=== PATIENT | female | born 1955 | race Two or more races ===

== ENCOUNTER 2017-01-15 09:11 | Emergency (ER) | payer BC, OTHER ==
[~2017-01-15] VITALS: Ht 154.9 cm; Wt 86.6 kg
[2017-01-15 09:53] LABS: Basophils # (auto) 0 uL; Basophils % (auto) 0.4 % (0.0-2.0); Eosinophils # (auto) 0.1 uL; Eosinophils % (auto) 1.3 % (0.0-7.0); Hematocrit 40.5 % (36.0-46.0); Hemoglobin 13.4 g/dL (12.2-16.2); Lymphocytes # (auto) 1.7 uL; Lymphocytes % (auto) 25.1 % (10.0-50.0); Mean Corpuscular Hemoglobin 27.6 pg (28.0-32.0); Mean Corpuscular Volume 83.7 fL (80.0-100.0); Mean Platelet Volume 11.1 fL (7.4-10.4); Monocytes # (auto) 0.3 uL; Monocytes % (auto) 4.9 % (0.0-12.0); Neutrophils # (auto) 4.7 uL; Neutrophils % (auto) 68.3 % (37.0-80.0); Platelet Count (auto) 224 10^3/uL (140-450); Red Cell Distribution Width 16.7 % (11.6-16.0); White Blood Cell 6.8 10^3/uL (4.4-10.8)
[2017-01-15 10:19] LABS: Albumin 3.7 g/dL (3.4-5.0); Alkaline Phosphatase 118 U/L (45-117); Anion Gap 7 (5-15); Aspartate Aminotransferase 21 U/L (15-37); Bilirubin, Total 0.5 mg/dL (0.2-1.0); Blood Urea Nitrogen 13 mg/dL (7-18); Calcium 8.8 mg/dL (8.5-10.1); Carbon Dioxide 27 mmol/L (21-32); Chloride 108 mmol/L (98-107); GFR African American 93 mL/min; GFR Non-African American 77 mL/min; Glucose 82 mg/dL (74-106); Magnesium 2.7 mg/dL (1.6-2.6); Potassium 4.1 mmol/L (3.5-5.1); Sodium 142 mmol/L (136-145); Total Protein 7.6 g/dL (6.4-8.2)
[2017-01-15 10:29] VITALS: BP 170/74
== END 2017-01-15 10:33 | disposition home or self-care (01) ==
LOC: ER 09:11
DX: K21.9 Gastro-esophageal reflux disease without esophagitis (principal); E11.9 Type 2 diabetes mellitus without complications; I10 Essential (primary) hypertension
CPT/HCPCS: 36415; 71020; 80053; 83735; 84484; 85025; 93005

== ENCOUNTER 2017-02-07 01:21 | Emergency (ER) | payer BC ==
[~2017-02-07] VITALS: Ht 154.9 cm; Wt 79.4 kg
[2017-02-07] MEDS ORDERED: cloNIDine HCL 0.1 MG TAB ONE (01:54)
[2017-02-07] MEDS ORDERED: diphenhdrAMINE HCL 25 MG CAP PO ONE ×2 (01:55→02:15)
[2017-02-07] MEDS ORDERED: cloNIDine HCL 0.1 MG TAB PO ONE (02:15)
[2017-02-07 03:08] VITALS: BP 108/76
[2017-02-07] MEDS ORDERED: TETANUS-DIPTH-ACEL PERTUSSIS 0.5ML SYRG IM ONE (03:15)
== END 2017-02-07 03:04 | disposition home or self-care (01) ==
LOC: ER 01:21
DX: T14.8 Other injury of unspecified body region (principal); J45.909 Unspecified asthma, uncomplicated; E11.9 Type 2 diabetes mellitus without complications; I10 Essential (primary) hypertension; Z23 Encounter for immunization; W57.XXXA Bitten or stung by nonvenomous insect and other nonvenomous arthropods, initial encounter; Y93.89 Activity, other specified; Y99.8 Other external cause status; Y92.89 Other specified places as the place of occurrence of the external cause
CPT/HCPCS: 90471; 90715

== ENCOUNTER 2022-01-06 06:10 | Inpatient (IN) | payer BC ==
[2022-01-06] VITALS (13 sets, daily range): BP systolic 93–129; BP diastolic 62–103
[~2022-01-06] VITALS: Ht 154.9 cm; Wt 93.4 kg
[2022-01-06] MEDS ORDERED: CELECOXIB 100 MG CAP ONE (06:52)
[2022-01-06] MEDS ORDERED: ACETAMINOPHEN IV 100 ML IV ONE (06:53)
[2022-01-06] MEDS ORDERED: ceFAZolin 1GM/50ML 100 ML IV ONE (06:53)
[2022-01-06] MEDS ORDERED: SUCCINYLCHOLINE CHLORIDE 20 MG/ML 10ML VIAL IV ONE (07:04)
[2022-01-06] MEDS ORDERED: TETRACAINE 1% INJ 2 ML VIAL IJ ONE (07:04)
[2022-01-06] MEDS ORDERED: ROCURONIUM 10MG/ML 10ML VIAL IV ONE (07:04)
[2022-01-06] MEDS ORDERED: PREGABALIN CAPSULE 75 MG CAP ONE (07:07)
[2022-01-06] MEDS ORDERED: MORPHINE SULF PF 5 MG/10 ML VIAL ONE ×2 (07:09→07:15)
[2022-01-06] MEDS ORDERED: fentaNYL CITRATE 100 MCG/2 ML VL ONE (07:09)
[2022-01-06] MEDS ORDERED: SODIUM CHLORIDE LOCK 10 ML ONE (07:10)
[2022-01-06] MEDS ORDERED: PROPOFOL 10 MG/ML 20 ML IV ONE (07:10)
[2022-01-06] MEDS ORDERED: ONDANSETRON HCL 4 MG/2 ML VIAL ONE (07:10)
[2022-01-06] MEDS ORDERED: EPINEPHrine HCL 1 MG/1 ML AMP ONE (07:10)
[2022-01-06] MEDS ORDERED: HYDROCORTISONE SOD SUCC 100 MG/2ML INJ VIAL ONE (07:10)
[2022-01-06] MEDS ORDERED: BUPIVACAINE/DEXTROSE MPF 0.75% 2 ML AMP IT ONE (07:10)
[2022-01-06] MEDS ORDERED: MIDAZOLAM HCL 2MG/2ML 2ml VIAL (1mg/ml) ONE (07:10)
[2022-01-06] MEDS ORDERED: BUPIVACAINE W/ EPINEPH 0.25% INJ 50ML MDV ONE (07:14)
[2022-01-06] MEDS ORDERED: VANCOMYCIN HCL 1000 MG VL ONE (07:14)
[2022-01-06] MEDS ORDERED: TRANEXAMIC ACID 20 ML ONE (07:14)
[2022-01-06] MEDS ORDERED: KETOROLAC TROMETH 30 MG/ML 1ML VIAL ONE (07:16)
[2022-01-06] MEDS ORDERED: CELECOXIB 100 MG CAP PO ONE (07:45)
[2022-01-06] MEDS ORDERED: ACETAMINOPHEN IV 1000 MG/100ML (10MG/ML) IV ONE (07:45)
[2022-01-06] MEDS ORDERED: PREGABALIN CAPSULE 75 MG CAP PO ONE (07:45)
[2022-01-06] MEDS ORDERED: MORPHINE SULFATE 4 MG/ML SYR/VIAL IV PRN (08:15)
[2022-01-06] MEDS ORDERED: METOCLOPRAMIDE HCL 5MG/ml INJ 2ml VIAL IV PRN (08:15)
[2022-01-06] MEDS ORDERED: NALOXONE HCL 0.4 MG/ML VIAL IV PRN (08:15)
[2022-01-06] MEDS ORDERED: diphenhdrAMINE HCL 50 MG/1 ML VL IV PRN (08:15)
[2022-01-06] MEDS ORDERED: HYDROmorphone HCL 2 MG/ML VL/or syr IV PRN ×2 (08:15→09:00)
[2022-01-06] MEDS ORDERED: ACETAMINOPHEN 325 MG TAB PO PRN (09:00)
[2022-01-06] MEDS ORDERED: ONDANSETRON HCL 4 MG/2 ML VIAL IV PRN (09:00)
[2022-01-06] MEDS ORDERED: NITROGLYCERIN 0.4 MG SL TAB SL PRN (09:30)
[2022-01-06] MEDS ORDERED: MORPHINE SULFATE INJ 2 MG/ml SYRG IV PRN (09:30)
[2022-01-06] MEDS: LACTATED RINGER'S 1,000 ML IV SCH ×2 (12:35→22:13)
[2022-01-06] MEDS: ceFAZolin 1GM/50ML 50 ML IV SCH ×2 (13:30→19:23)
[2022-01-06] MEDS: SODIUM CHLOR 0.9% PF (SALINE LOCK) 10ML VIAL/SYR IV SCH ×2 (14:00→22:13)
[2022-01-06] MEDS: PANTOPRAZOLE 40 MG TAB PO SCH (15:00)
[2022-01-06] MEDS: ENOXAPARIN SOD 40 MG/0.4 ML SYRINGE SC SCH (18:34)
[2022-01-06] MEDS: DOCUSATE SOD 100 MG CAP PO SCH (22:14)
[2022-01-07] VITALS (10 sets, daily range): BP systolic 95–125; BP diastolic 57–73
[2022-01-07] MEDS: ceFAZolin 1GM/50ML 50 ML IV SCH (02:01)
[2022-01-07 06:14] LABS: Hematocrit 30.5 % (36.0-46.0); Hemoglobin 10.5 g/dL (12.2-16.2)
[2022-01-07] MEDS ORDERED: ceFAZolin 1GM/50ML 50 ML IV SCH (06:15)
[2022-01-07] MEDS: SODIUM CHLOR 0.9% PF (SALINE LOCK) 10ML VIAL/SYR IV SCH ×3 (06:18→22:25)
[2022-01-07 06:27] LABS: Albumin 2.8 g/dL (3.4-5.0); Calcium 7.9 mg/dL (8.5-10.1); Potassium 4.5 mmol/L (3.5-5.1)
[2022-01-07 06:30] LABS: BUN/Creatinine Ratio 14.9; Bilirubin, Total 0.4 mg/dL (0.2-1.0); Total Protein 6.1 g/dL (6.4-8.2)
[2022-01-07] MEDS: LACTATED RINGER'S 1,000 ML IV SCH (08:02)
[2022-01-07] MEDS: DOCUSATE SOD 100 MG CAP PO SCH ×2 (10:39→22:25)
[2022-01-07] MEDS: PANTOPRAZOLE 40 MG TAB PO SCH (10:39)
[2022-01-07] MEDS: ENOXAPARIN SOD 40 MG/0.4 ML SYRINGE SC SCH (10:39)
[2022-01-07] MEDS ORDERED: SODIUM CHLORIDE 0.9% 1,000 ML IV ONE (11:00)
[2022-01-07] MEDS: HYDROmorphone HCL 2 MG/ML VL/or syr IV PRN ×2 (16:54→21:30)
[2022-01-07 19:34] LABS: BUN/Creatinine Ratio 18.3; Potassium 4.2 mmol/L (3.5-5.1)
[2022-01-07] MEDS: OXYCODONE W/ ACETAMINOPHEN 5/325MG TABLET PO PRN (22:26)
[2022-01-08] MEDS ORDERED: SODIUM CHLORIDE 0.9% 500 ML IV ONE (01:15)
[2022-01-08] MEDS: SODIUM CHLOR 0.9% PF (SALINE LOCK) 10ML VIAL/SYR IV SCH ×3 (05:36→21:32)
[2022-01-08] MEDS: OXYCODONE W/ ACETAMINOPHEN 5/325MG TABLET PO PRN (05:38)
[2022-01-08] MEDS ORDERED: OXYCODONE W/ ACETAMINOPHEN 5/325MG TABLET PO PRN (05:45)
[2022-01-08 06:26] LABS: Basophils # (auto) 0 10 ^3/uL (0-0.2); Basophils % (auto) 0.3 % (0.0-2.0); Eosinophils # (auto) 0.1 10 ^3/uL (0-0.8); Eosinophils % (auto) 0.9 % (0.0-7.0); Hematocrit 31.9 % (36.0-46.0); Hemoglobin 10.9 g/dL (12.2-16.2); Lymphocytes # (auto) 1.3 10 ^3/uL (0.4-5.4); Lymphocytes % (auto) 15.3 % (10.0-50.0); Mean Corpuscular Hemoglobin 30.2 pg (28.0-32.0); Mean Corpuscular Volume 88.7 fL (80.0-100.0); Monocytes # (auto) 0.9 10 ^3/uL (0-1.3); Monocytes % (auto) 10.4 % (0.0-12.0); Neutrophils # (auto) 6.2 10 ^3/uL (1.6-8.6); Neutrophils % (auto) 73.1 % (37.0-80.0); Red Cell Distribution Width 15.6 % (11.8-14.3); White Blood Cell 8.4 10^3/uL (4.4-10.8)
[2022-01-08 06:39] LABS: BUN/Creatinine Ratio 18.1; Calcium 8.2 mg/dL (8.5-10.1); Potassium 4.5 mmol/L (3.5-5.1)
[2022-01-08 09:00] VITALS: BP 146/83
[2022-01-08] MEDS: PANTOPRAZOLE 40 MG TAB PO SCH (09:44)
[2022-01-08] MEDS: oxyCODONE ER 20 MG TAB PO SCH ×2 (09:44→21:33)
[2022-01-08] MEDS: ENOXAPARIN SOD 40 MG/0.4 ML SYRINGE SC SCH (09:45)
[2022-01-08] MEDS: DOCUSATE SOD 100 MG CAP PO SCH ×2 (09:50→21:33)
[2022-01-08 12:50] VITALS: BP 187/93
[2022-01-08] MEDS: HYDROmorphone HCL 2 MG/ML VL/or syr IV PRN ×2 (14:48→19:03)
[2022-01-08] MEDS: amLODIPine BESYLATE 5 MG TAB PO SCH (15:45)
[2022-01-08 17:00] VITALS: BP 154/80
[2022-01-08 18:00] VITALS: BP 154/80
[2022-01-08 19:10] LABS: Urine Bacteria FEW /hpf (None Seen); Urine Blood Negative /uL (Negative); Urine Specific Gravity 1.013 (1.001-1.035); Urine WBC 2 /hpf (0 - 5)
[2022-01-08 22:00] VITALS: BP 157/82
[2022-01-09] MEDS: HYDROmorphone HCL 2 MG/ML VL/or syr IV PRN ×2 (01:36→14:51)
[2022-01-09 04:49] VITALS: BP 151/76
[2022-01-09] MEDS: SODIUM CHLOR 0.9% PF (SALINE LOCK) 10ML VIAL/SYR IV SCH ×3 (05:41→21:59)
[2022-01-09 07:35] LABS: Hematocrit 32.5 % (36.0-46.0); Hemoglobin 11.2 g/dL (12.2-16.2)
[2022-01-09 09:00] VITALS: BP 160/78
[2022-01-09] MEDS: PANTOPRAZOLE 40 MG TAB PO SCH (10:00)
[2022-01-09] MEDS: DOCUSATE SOD 100 MG CAP PO SCH ×2 (10:00→21:59)
[2022-01-09] MEDS: ENOXAPARIN SOD 40 MG/0.4 ML SYRINGE SC SCH (10:00)
[2022-01-09] MEDS: amLODIPine BESYLATE 5 MG TAB PO SCH (10:00)
[2022-01-09] MEDS: oxyCODONE ER 20 MG TAB PO SCH ×2 (10:00→21:59)
[2022-01-09 10:01] LABS: Calcium 8.4 mg/dL (8.5-10.1); Potassium 4.5 mmol/L (3.5-5.1)
[2022-01-09 16:00] VITALS: BP 141/78
[2022-01-09 22:00] VITALS: BP 148/74
[2022-01-10 05:00] VITALS: BP 145/62
[2022-01-10] MEDS: HYDROmorphone HCL 2 MG/ML VL/or syr IV PRN (05:05)
[2022-01-10] MEDS: SODIUM CHLOR 0.9% PF (SALINE LOCK) 10ML VIAL/SYR IV SCH (05:59)
[2022-01-10 09:00] VITALS: BP 134/59
[2022-01-10] MEDS: amLODIPine BESYLATE 5 MG TAB PO SCH (10:00)
[2022-01-10] MEDS: DOCUSATE SOD 100 MG CAP PO SCH (10:00)
[2022-01-10] MEDS: PANTOPRAZOLE 40 MG TAB PO SCH (10:00)
[2022-01-10] MEDS: ENOXAPARIN SOD 40 MG/0.4 ML SYRINGE SC SCH (10:00)
[2022-01-10] MEDS: oxyCODONE ER 20 MG TAB PO SCH (10:00)
== END 2022-01-10 11:18 | DRG 470 ==
LOC: SUR 06:10 → TELE 09:26 → TELE-EAST 13:04
PROVIDERS: ADMIT Orthopaedic Surgery Adult Reconstructive Orthopaedic Surgery; ATTEND Internal Medicine
PROC: 8E0YXBZ Computer Assisted Procedure of Lower Extremity (ICD-10-PCS; 2022-01-06)
PROC: 0SRD0J9 Replacement of Left Knee Joint with Synthetic Substitute, Cemented, Open Approach (ICD-10-PCS; principal; 2022-01-06 07:26)
DX: M17.12 Unilateral primary osteoarthritis, left knee (principal); N17.9 Acute kidney failure, unspecified; E11.9 Type 2 diabetes mellitus without complications; I10 Essential (primary) hypertension; Z20.822 Contact with and (suspected) exposure to COVID-19
CPT/HCPCS: 36415; 73562; 76775; 80048; 80053; 81001; 82565; 85014; 85018; 85025; 86850; 86870; 86900; 86901; 97110; 97116; 97530; C1713; G0378; J0131; J0171; J0330; J0690; J1885; J2250; J2405; J2704

== ENCOUNTER 2025-02-28 06:24 | Inpatient (IN) | payer BC ==
[2025-02-27 10:16] LABS: Hematocrit 36.5 % (36.0-46.0); Hemoglobin 12.1 g/dL (12.2-16.2); Mean Corpuscular Hemoglobin 27.7 pg (28.0-32.0); Mean Corpuscular Volume 83.8 fL (80.0-100.0); Nucleated Red Blood Cells % 0.0 %
[2025-02-27 10:35] LABS: INR 0.94 (0.9-1.15); Partial Thromboplastin Time 24.7 SEC (24.5-34.5); Prothrombin Time 10.0 sec (9.3-11.8)
[2025-02-27 10:44] LABS: Alanine Aminotransferase 26 U/L (7-40); Alkaline Phosphatase 104 U/L (46-116); Anion Gap 7 (5-15); BUN/Creatinine Ratio 19.8 (10.0-20.0); Bilirubin, Total 0.4 mg/dL (0.2-1.0); Blood Urea Nitrogen 17 mg/dL (9-23); Calcium 9.7 mg/dL (8.7-10.4); Carbon Dioxide 28 mmol/L (20-31); Potassium 4.3 mmol/L (3.5-5.1); Sodium 143 mmol/L (136-145); Total Protein 6.8 g/dL (5.7-8.2)
[2025-02-27 10:45] LABS: Chloride 108 mmol/L (98-107); Glucose 108 mg/dL (74-106)
[2025-02-27 10:53] LABS: Albumin 4.3 g/dL (3.2-4.8)
[2025-02-27 10:56] LABS: Urine Protein, UAD TRACE (Negative)
[~2025-02-28] VITALS: Ht 154.9 cm; Wt 106.0 kg
[2025-02-28] VITALS (7 sets, daily range): BP systolic 106–127; BP diastolic 69–105; PULSE 71–91; RESP 8–18; TEMP 98.4; O2SAT 92–98
[~2025-02-28 06:24] MED LIST: ASCO500C49 PO; BENZ100C97 PO; DULO20CA PO; MULT1TAB95 PO; NAP500T GT; TURM500C3 OR
[2025-02-28] MEDS: LIDOCAINE W/ EPINEPHRINE 1% 20ML VIAL ONE (06:37)
[2025-02-28] MEDS ORDERED: HYDROmorphone HCL 2 MG/ML VL/or syr ONE (07:17)
[2025-02-28] MEDS ORDERED: KETAMINE 50mg/ML 1ml syringe ONE (07:17)
[2025-02-28] MEDS ORDERED: fentaNYL CITRATE 100 MCG/2 ML VL ONE ×2 (07:18→12:01)
[2025-02-28] MEDS ORDERED: LIDOCAINE 1% INJ PF 5ML AMP ONE (07:18)
[2025-02-28] MEDS ORDERED: PROPOFOL 10 MG/ML 20 ML IV ONE ×3 (07:18→11:31)
[2025-02-28] MEDS ORDERED: SODIUM CHLORIDE LOCK 10 ML ONE (07:18)
[2025-02-28] MEDS ORDERED: ONDANSETRON HCL 4 MG/2 ML VIAL ONE (07:18)
[2025-02-28] MEDS ORDERED: fentaNYL CITRATE 5 ML ONE (07:18)
[2025-02-28] MEDS ORDERED: LIDOCAINE 2% TOPICAL JELLY 5 ML URJT TOP ONE (07:18)
[2025-02-28] MEDS ORDERED: ROCURONIUM 10MG/ML 10ML VIAL IV ONE (07:18)
[2025-02-28] MEDS ORDERED: MIDAZOLAM HCL 2MG/2ML 2ml VIAL (1mg/ml) ONE ×2 (07:18→08:35)
[2025-02-28] MEDS: METOCLOPRAMIDE HCL 5MG/ml INJ 2ml VIAL IV ONE (07:45)
[2025-02-28] MEDS: KETOROLAC TROMETH 30 MG/ML 1ML VIAL IV ONE (07:45)
[2025-02-28] MEDS ORDERED: MORPHINE SULFATE 4 MG/ML SYR/VIAL IV PRN (07:45)
[2025-02-28] MEDS ORDERED: MORPHINE SULFATE INJ 2 MG/ml SYRG IV PRN ×2 (07:45→14:30)
[2025-02-28] MEDS ORDERED: HYDROmorphone HCL 2 MG/ML VL/or syr IV PRN (07:45)
--- NOTE | 2025-02-28 07:54 | DVHHP2 ---
History Allergies: Coded Allergies: NO KNOWN ALLERGIES (Unverified , 02/07/17) Chief Complaint: Low back pain with radiation to bilateral legs, neurogenic claudication. Patient arrives today for elective spine surgery with Dr Stone Ge lumbar 3-5 posterior spinal decompression with L3-4, L4-5 interbody peek cage with instrumentation. The risks/benefits/alternatives of surgery were explained to the patient in detail including but not limited to , stroke, paralysis, myocardial infarction, bleeding, infection, complications of anesthesia (dry mouth, sore throat, dental damage, respiratory depression, blindness), postoperative infection, incomplete relief of symptoms, recurrence of symptoms, damage to blood vessels, nerves and tendons, pulmonary embolism and possible need for repeat surgery in the future. Pain, damage to surrounding soft tissue structures, need for reoperation or future surgery, persistent pain/disability/deformity, bone graft collapse or extrusion of interbody device, instrumentation failure, need for instrumentation removal, dural tear, temporary or permanent nerve root damage, deep vein thrombosis, pulmonary embolism, were described to the patient in detail and the patient wishes to proceed. No guarantee of surgical outcome/improvement was implied. All of the questions were answered thoroughly and consents were obtained. Call with questions Arin Valdez [facility] Orthopaedic Spine Surgery nurse practitioner For Dr Gala Ge Patient was examined, chart reviewed, labs evaluated, and diagnostic studies and findings analyzed. Case was discussed with Dr. Stone Ge who formulated the plan of care. This medical document was created using an electronic medical record system with myRete dictation system. Although this document has been carefully reviewed, there might still be some phonetic and typographical errors. These areas are purely typographical due to imperfections of the software programs, and do not reflect any compromise in the patient's medical care. Present Illness(Onset/Duration Patient has had low back pain since 2019 started with the left side now is affecting both sides, she still maintains 5/5 strength x4 extremities however she is limited in her duration of ambulation and needs to stop and rest frequently. She did fall recently however she states it is not related to her legs however the family disagrees. Noncontributory in this case Past Surgical History: Other (Left knee surgery in 2021) Exam Exam General Appearance: None, Normal, Obese HEENT: Normal ENT Inspection Neck: None, Non-Tender, Normal, Normal Inspection Respiratory: No Accessory Muscle Use, None, No Respiratory Distress Cardiovascular: Other (Skin is pink warm and dry no complaints of chest pain) Gastrointestinal: Other (No complaints of nausea vomiting or diarrhea) Extremities: Normal capillary refill, Normal inspection, Normal range of motion, Other (5/5 strength to bilateral lower extremities strong pedal pushes and pulls patient able to lift knees off bed against resistance, does not generate back pain) Neurologic: Alert, Other (Intermittent leg weakness and numbness) Cerebellar Function: Normal Reflexes: Normal ORLANDO VALDEZ [employer] ATTENDANT Feb 28, 2025 07:54
[2025-02-28] MEDS ORDERED: NEOSTIGMINE 1 MG/ML INJ (10mg/10ML VIAL) ONE (09:30)
[2025-02-28] MEDS ORDERED: GLYCOPYRROLATE 0.2 MG/ML 1ML VIAL ONE (09:30)
[2025-02-28] MEDS ORDERED: fentaNYL CITRATE 10 ML ONE (10:29)
[2025-02-28] MEDS ORDERED: ONDANSETRON HCL 4 MG/2 ML VIAL IV PRN (14:30)
[2025-02-28] MEDS ORDERED: ACETAMINOPHEN 325 MG TAB PO PRN (14:30)
[2025-02-28] MEDS: HYDROmorphone HCL 2 MG/ML VL/or syr IV PRN (14:30)
[2025-02-28] MEDS ORDERED: NITROGLYCERIN 0.4 MG SL TAB SL PRN (14:30)
--- NOTE | 2025-02-28 14:33 | DVHOP2 ---
Operative Report - 2 Report Details Date: 02/28/25 Preop Diagnosis: lumbar spinal stenosis with severe neurogenic claudication along with L4/5 spondylolisthesis in the setting of a congenitally narrow spinal canal Postop Diagnosis: same Surgeon: Stone Ge MD Pepper Cutter: Nicolle Valdez NP Anesthesiologist: esteban Anesthesia: General Consent: The patient was informed of the risks and benefits of the procedure. These include but are not limited to complications of anesthesia, postoperative infection, incomplete relief of symptoms, recurrence of symptoms, damage to blood vessels, nerves and tendons, deep venous thrombosis, pulmonary embolism and possible need for repeat surgery in the future. Name of Procedure Performed see detailed note Procedure Details Procedure Details: Pre-op Diagnosis: Lumbar Degenerative Disk Disease and Lumbar Spinal Stenosis in a congenitally narrow spinal canal along with L4/5 spondylolisthesis causing Incapacitating back pain, radiculopathy and progressive neurologic deficit Post-op Diagnosis: Lumbar Degenerative Disk Disease and Lumbar Spinal Stenosis in a congenitally narrow spinal canal along with L4/5 spondylolisthesis causing Incapacitating back pain, radiculopathy and progressive neurologic deficit Procedure: Lumbar 5 laminectomy with Lumbar 5 foraminotomies and facetectomies to decompress central canal and Lumbar 5 nerve roots Lumbar 4 laminectomy with Lumbar 4 foraminotomies and facetectomies to decompress central canal and Lumbar 4 nerve roots Lumbar 3 laminectomy with Lumbar 3 foraminotomies and facetectomies to decompress central canal and Lumbar 4 nerve roots Lumbar 3 to 5 posterior spinal inter transverse fusion with bone graft Lumbar 3 to 5 posterior spinal instrumentation with pedicle screws Local Bone Autograft For Fusion Allograft Bone Substitute to augment Fusion Use of Demineralized Bone Matrix to Augment Fusion Microscope For Microdissection Surgeon: Stone Ge MD Assist: RADHA Colvin Anesthesia: General Fluids and EBL: See anesthesia note Patient was seen in the Pre Anesthesia Care Unit (PACU) and the operative site was initialed by me. All questions were answered to the patients satisfaction and chart reviewed. The patient was taken to the operative room where pre-operative antibiotics were given 30 minutes prior to incision. General anesthesia was induced and neuro-monitoring leads placed. Yeager catheter was placed. The patient was turned prone onto the [facility] spinal table. While positioning, I made sure that the belly was free to allow proper expansion of the lungs. The hips were extended and all bony prominences padded. The shoulders were abducted 80 degree and the elbows flexed 100 degrees with no tension on the brachial plexus. I check the foot arterial pulses and they were palpable. The patient was prepped and draped and time out was taken at this time per usual protocol. At this time, the C-arm fluoroscope was brought in and was used to sarmad the incision borders proximally and distally. Using a Number 10 Blade, an incision was made extending it proximally and distally per C arm sarmad from the posterior spinous process of lumbar 4,5 down to the lumbo-dorsal fascia. All bleeding was controlled with electrocautery. Self-retaining retractors were placed. Electrocautery was then used to take down the lumbo- dorsal fascia, to free the muscle off the bone bilaterally. A Ольга retractor was placed over the posterior spinous process proximally and a lateral C-arm fluoroscope image was taken to insure we were at the correct level. Next, using bovie electro cautery, The deep fascia laterally to the facet joints was removed to expose the transverse processes of lumbar 3, 4 and 5 while taking care to avoid injuring the facet capsule at the proximal end of the incision. Next, the microscope was bought in for visualization and using a Luxell rongeur, the posterior spinous process of lumbar 3 and 4 and 5 bone were removed and the bone was saved for use as local autograft. I used alternating Kerison 2 mm and 3 mm rongeurs to perform central laminectomies lumbar 5 and 4 and 3 to decompress the central canal. Next using alternating Kerison 2mm and 3 mm rongeurs, the superior articular facets of lumbar 3, 4 and 5 were removed bilaterally to decompress the lateral recess (facetectomies) and then extended proximally to decompress the foramen bilaterally (foraminotomies). On the right side, there was an extensive amount of epidural fibrosis. The severity of fibrosis is commonly seen when I perform revision lumbar decompressions but she has not had a prior lumbar spine surgery. However, the other scenario these findings are seen is with a history of multiple epidural steroid injections. The fibrosis was so severe that the dura was adhered to the superior articular facets on the right side a the L4 and 5 levels. This required my to make a durotomy to release the dura. otherwise, it would have remained tethered to the bone and the decompression would be compromised. Once I made the durotomy of about 1/2 cm at each spot, I closed the durotomies with running 6-0 proline suture and covered them with a duragen patch and duraseal. This was after pe rforming a valsalva (to 40mm pressure ) maneuver after the suturing and there was no evidence of clear fluid seen. I covered the exposed dura with gelfoam soaked in thrombin and the microscope was wheeled away from the operative filed. The C-arm fluoroscope was brought in and perfect AP views of the lumbar 4 and 5 pedicles were obtained. I placed bilateral pedicle screws at these levels by: using a Lenke awl to make a aircraft pilot hole, then a ball tip robe to make sure there was no pedicle breach, then a tap to prepare the track and a 6.5 mm diameter 45 mm length pedicle screw was placed bilaterally. This step to place bilateral pedicle screws was repeated up to the lumbar 3, 4 and 5 level. Next, the c-arm fluoroscope took an AP and lateral x-ray to ensure proper placement of the pedicle screws. Next, the neuro-stimulation probe was placed over the tip of each screw and each screw stimulated only after a current greater than 10 mA was delivered to the screw. Next , I took a Midas Juan Diego Drill to decorticate the transverse process which were exposed and local bone graft, Bacterin allograft bone substitute and Demineralized bone matrix were placed along the inter transverse process intervals bilaterally (the fusion bed). Next a curved cait sized to fit the pedicle screw interval was placed and secured to each pedicle screw using set screws, The set screws were tightened using a torq ue screwdriver (set to 10 N*M torque) to secure the cait to the pedicle screws bilaterally. Final AP and lateral C arm fluoroscopic films were taken at this time. Next a 10 Micronesian diameter Hemovac drain was laced deep to the lumbo- dorsal fascia. The lumbo-dorsal fascia was closed with interrupted 0-Vicry sutures. The subcutaneous tissue was closed with interrupted 2-0 Vicryl sut ures. The skin was closed with running 2-0 nylon suture. Sterile dressings were place. The pt. was turned supine onto the stretcher, extubated and taken to the recovery room in stable condition. cpt codes: 74625,[id number] Condition Stable Disposition Still a Patient STONE GE MD Feb 28, 2025 14:33
[2025-02-28] MEDS: ACCU-CHEK COMFORT CURVE STRIP VI ONE (14:34)
[2025-02-28] MEDS: ACETAMINOPHEN IV 1000 MG/100ML (10MG/ML) IV ONE (14:45)
[2025-02-28] MEDS: TRANEXAMIC ACID 20 ML ONE (14:59)
[2025-02-28] MEDS: SUCCINYLCHOLINE CHLORIDE 20 MG/ML 10ML VIAL IV ONE (15:00)
[2025-02-28] MEDS: ceFAZolin 2 GM/D5W50ml 50 ML IV ONE (15:00)
[2025-02-28] MEDS: ROCURONIUM 10MG/ML 10ML VIAL IV ONE (15:00)
[2025-02-28] MEDS: THROMBIN (BOVINE) 5000 UNIT SOL VIAL ONE (15:00)
[2025-02-28] MEDS: GELATIN 1 SPONGE SIZE 100 TOP ONE (15:00)
[2025-02-28] MEDS: HYDROmorphone HCL 2 MG/ML VL/or syr ONE ×2 (15:02→16:13)
[2025-02-28] MEDS: ACETAMINOPHEN IV 100 ML IV ONE (15:02)
[2025-02-28 16:10] LABS: Hematocrit 28.5 % (36.0-46.0); Hemoglobin 9.0 g/dL (12.2-16.2)
[2025-02-28] MEDS: D5W/SOD CHLO 0.9% 1,000 ML IV SCH (16:55)
[2025-02-28] MEDS: HYDROcodone-ACET 10/325MG TAB PO PRN (17:44)
--- NOTE | 2025-02-28 20:27 | DVH ---
C-ARM FLUOROSCOPY: PROCEDURE: Intraoperative decompression of L3 through L5 FLUOROSCOPY TIME: 65.7 seconds DAP: 51.37 mgy FINDINGS: Spot intraoperative C arm radiographs demonstrating no images received IMPRESSION: 1. Please refer to surgical report for detailed findings.
--- NOTE | 2025-02-28 20:31 | DVH ---
CLINICAL INDICATION: L3-5 POSTERIOR DECOMPRESSION TECHNIQUE: 17 radiographic views of the L3 through 5 posterior decompression were obtained. Comparison: [id number] on DOS: 01/06/22 FINDINGS/IMPRESSION: Total fluoro time 65.7 seconds. Cumulative dose: 51.37 mGy .
[2025-02-28] MEDS: DOCUSATE SOD 100 MG CAP PO SCH (21:43)
[2025-02-28] MEDS: CYCLOBENZAPRINE HCL 10 MG TAB PO SCH (21:44)
[2025-02-28] MEDS: ceFAZolin 1GM/50ML 50 ML IV SCH (21:49)
[2025-03-01] VITALS (12 sets, daily range): BP systolic 107–153; BP diastolic 57–81; PULSE 16–104; RESP 16–20; TEMP 97.3–99.2; O2SAT 95–99
[2025-03-01 05:50] LABS: Hematocrit 25.5 % (36.0-46.0); Hemoglobin 8.3 g/dL (12.2-16.2); Mean Corpuscular Hemoglobin 28.0 pg (28.0-32.0); Mean Corpuscular Volume 85.8 fL (80.0-100.0); Nucleated Red Blood Cells % 0.1 %
[2025-03-01] MEDS: MORPHINE SULFATE INJ 2 MG/ml SYRG IV PRN ×2 (09:40→23:50)
[2025-03-01] MEDS: BENZONATATE 100 MG PO PRN (09:42)
--- NOTE | 2025-03-01 10:13 | DVHINCON2 ---
Date Seen: Mar 01, [address] MAYBERRY Family History: Diabetes mellitus G8 MOTHER Hypercholesterolemia G8 MOTHER Hypertension G8 MOTHER Allergies: Coded Allergies: NO KNOWN ALLERGIES (Unverified , 02/07/17) Home Meds Reported Medications Curcuma Longa (Turmeric) Extra (TURMERIC) 500 Mg Cap, 500 MG OR, CAP 02/27/25 Multiple Vitamin (Multi Vitamin) 1 Tab Tab, 1 TAB PO DAILY, TAB 02/27/25 Ascorbic Acid (VITAMIN C) 500 Mg Cap, 500 MG PO DAILY, CAP 02/27/25 Naproxen (NAPROSYN TABLET) 500 Mg Tb, 500 MG GT BID, TAB 02/27/25 Benzonatate (Benzonatate) 100 Mg Cap, 100 MG PO PRN, CAP 02/27/25 Duloxetine Hcl (Cymbalta) 20 Mg Cap, 20 MG PO DAILY, CAP 02/27/25 Current Medications Current Medications Medications (Trade) Dose Ordered Sig/Paul Route PRN Reason Start Time Stop Time Status Last Admin Dextrose/Sodium Chloride 1,000 ml @ 100 mls/hr Q10H IV 02/28/25 14:30 03/01/25 09:46 Ondansetron HCl (Zofran) 4 mg Q4HP PRN IV NAUSEA / VOMITING 02/28/25 14:30 Acetaminophen (Tylenol Tablet) 650 mg Q6HP PRN PO MILD PAIN (1-3 PAIN SCALE) 02/28/25 14:30 Acetaminophen/ Hydrocodone Bitart ([place] 10/325MG Tab) 1 tab Q6HP PRN PO MODERATE PAIN (4-6 PAIN SCALE) 02/28/25 14:30 03/01/25 05:20 Morphine Sulfate 1 mg Q4HP PRN IV SEVERE PAIN (7-10 PAIN SCALE) 02/28/25 14:30 03/01/25 09:40 Cyclobenzaprine HCl (Flexeril Tablet) 10 mg TID PO 02/28/25 22:00 03/01/25 05:24 Docusate Sodium (Colace Capsule) 100 mg BID PO 02/28/25 22:00 02/28/25 21:43 Cefazolin Sodium 50 ml @ 100 mls/hr Q8HR IV 02/28/25 22:00 03/02/25 14:29 03/01/25 05:24 Nitroglycerin (Ntrostat Sublingual) 0.4 mg Q5MINP PRN SL FOR CHEST PAIN 02/28/25 14:30 Morphine Sulfate 2 mg Q30M PRN IV FOR CHEST PAIN 02/28/25 14:30 Patient Own Medication 100 mg PRN PRN PO for cough 02/28/25 14:30 Hold Patient Own Medication 20 mg DAILY PO 03/01/25 10:00 Vital Signs Vital Signs Date Time Temp Pulse Resp B/P (MAP) Pulse Ox O2 Delivery O2 Flow Rate FiO2 03/01/25 09:40 89 16 158/74 03/01/25 08:43 97.3 96 97.3 02/28/25 20:00 Oxymizer 3 N/A Labs/Diagnostic Data Labs Test 03/01/25 04:59 02/28/25 14:34 02/27/25 10:08 Range/Units White Blood Count 10.2 # 4.4-10.8 10^3/uL Red Blood Count 2.97 L 4.0-5.20 10^6/uL Hemoglobin 8.3 L 12.2-16.2 g/dL Hematocrit 25.5 #L 36.0-46.0 % Mean Corpuscular Volume 85.8 80.0-100.0 fL Mean Corpuscular Hemoglobin 28.0 28.0-32.0 pg Mean Corpuscular Hemoglobin Concent 32.6 32.0-36.0 g/dL Red Cell Distribution Width 15.9 H 11.8-14.3 % Platelet Count 140 140-450 10^3/uL Mean Platelet Volume 10.4 6.9-10.8 fL Neutrophils (%) (Auto) 83.1 H 37.0-80.0 % Lymphocytes (%) (Auto) 9.3 L 10.0-50.0 % Monocytes (%) (Auto) 7.6 0.0-12.0 % Eosinophils (%) (Auto) 0.0 0.0-7.0 % Basophils (%) (Auto) 0.0 0.0-2.0 % Neutrophils # (Auto) 8.5 1.6-8.6 10 ^3/uL Lymphocytes # (Auto) 1.0 0.4-5.4 10 ^3/uL Monocytes # (Auto) 0.8 0-1.3 10 ^3/uL Eosinophils # (Auto) 0 0-0.8 10 ^3/uL Basophils # (Auto) 0 0-0.2 10 ^3/uL Nucleated Red Blood Cells 0.1 % POC Glucose 229 H 70-106 mg/dl Prothrombin Time 10.0 9.3-11.8 sec Prothrombin Time INR 0.94 0.9-1.15 Activated Partial Thromboplast Time 24.7 24.5-34.5 SEC Urine Color Yellow Yellow Urine Clarity Ex.turbid Clear Urine pH 6.0 5.0-9.0 Urine Specific [place] 1.025 1.001-1.035 Urine Protein Trace H Negative Urine Ketones Negative Negative Urine Blood 1+ H Negative /uL Urine Nitrite Negative Negative Urine Bilirubin Negative Negative Urine Urobilinogen 3 H Negative mg/dL Urine Leukocyte Esterase 3+ Negative /uL Urine RBC 17 0 - 4 /hpf Urine Microscopic WBC 38 H 0-5 /HPF Urine Squamous Epithelial Cells Mod <5 /hpf Urine Bacteria Few H None Seen /hpf Urine Mucus Few None Seen Urine Glucose 1+ H Normal mg/dL Sodium Level 143 136-145 mmol/L Potassium Level 4.3 3.5-5.1 mmol/L Chloride Level 108 H 98-107 mmol/L Carbon Dioxide Level 28 20-31 mmol/L Anion Gap 7 5-15 Blood Urea Nitrogen 17 9-23 mg/dL Creatinine 0.86 0.550-1.02 mg/dL Glomerular Filtration Rate Calc 74 >90 mL/min BUN/Creatinine Ratio 19.8 10.0-20.0 Serum Glucose 108 H 74-106 mg/dL Calcium Level 9.7 8.7-10.4 mg/dL Total Bilirubin 0.4 0.2-1.0 mg/dL Aspartate Amino Transferase (AST) 29 13-40 U/L Alanine Aminotransferase (ALT) 26 7-40 U/L Alkaline Phosphatase 104 46-116 U/L Total Protein 6.8 5.7-8.2 g/dL Albumin 4.3 3.2-4.8 g/dL Assessment SEE DICTATED NOTE Plan discussed with: Patient Date of Service: Mar 01, 2025 Billing Provider: ALVIN BLUM MD Common Visit Codes: 11353-[id number] INP/OBS CARE (HIGH) Secondary Visit Codes: [id number] CARE PLAN 30 MINUTES ALVIN BLUM MD Mar 01, 2025 10:13
--- NOTE | 2025-03-01 10:28 | DVHINCON2 ---
DATE OF CONSULTATION: 03/01/2025 INTERNAL MEDICINE CONSULT HISTORY OF PRESENT ILLNESS: The patient is a 70-year-old lady who was admitted after she underwent surgery on the lumbar spine for lumbar spinal stenosis. The patient at this time complains of pain in the back. No chest pain, no shortness of breath, no nausea or vomiting. No history of any excessive bleeding noted. PAST MEDICAL HISTORY: History of diabetes. Also depression. MEDICATIONS: She is currently off of oral hypoglycemics. She takes Cymbalta. ALLERGIES: No known drug allergies. SOCIAL HISTORY: She lives with her sons. Denies smoking or alcohol. FAMILY HISTORY: Negative. PHYSICAL EXAMINATION: GENERAL: The patient is awake and alert. VITAL SIGNS: Temperature of 97.6, pulse 90 per minute, blood pressure 135/66. SHEENT: Unremarkable. NECK: No JVD. No pedal edema. LUNGS: Equal bilaterally. No added sounds. CARDIOVASCULAR: S1 and S2 is regular without murmurs. ABDOMEN: Soft. There is no organomegaly. NEUROLOGIC: Nonfocal. MUSCULOSKELETAL: There is drains in place and dressing at the lumbar spine site. ASSESSMENT AND PLAN: * Depression with two previous history of diabetes Her A1c will be checked. * Anemia for which the patient is to be transfused. * Morbid obesity. * Status post lumbar spine surgery for which she will receive pain medication and physical therapy. * Advance care planning. The patient is a full code-Time spent was 18 minutes. MD MUSA Cabrera/XENIA TID: [id number] RECEIPT: [id number] [facility]
[2025-03-01] MEDS: FERROUS SULFATE 325mg EC TAB PO ONE (11:25)
--- NOTE | 2025-03-01 14:28 | DVHPN2 ---
Progress Note - Surgical Date Seen: Mar 01, 2025 Post op day Post op day: 1 Subjective Patient reports: No new complaints, Feels better Review of Systems: HEENT:Normal, CVS:Normal, RESPIRATORY:Normal, GI:Normal, :Normal, MSK:Abnormal (Patient experiencing expected), NEURO:Normal Objective Vital signs Vital Sign Date Time Temp Pulse Resp B/P (MAP) Pulse Ox O2 Delivery O2 Flow Rate FiO2 03/01/25 12:38 98.1 90 18 126/57 (80) 99 98.1 02/28/25 20:00 Oxymizer 3 N/A Total Intake and Output 02/28/25 02/28/25 03/01/25 15:00 23:00 07:00 Intake Total 290 ml 200 ml Output Total 0 ml 600 ml 400 ml Balance 0 ml -310 ml -200 ml Medications Current Medications Medications Dose Ordered Sig/Paul Route Start Time Stop Time Status Last Admin Dose Admin Dextrose/Sodium Chloride 1,000 ml @ 100 mls/hr Q10H IV 02/28/25 14:30 03/01/25 09:46 100 MLS/HR Ondansetron HCl 4 mg Q4HP PRN IV 02/28/25 14:30 Acetaminophen 650 mg Q6HP PRN PO 02/28/25 14:30 Acetaminophen/ Hydrocodone Bitart 1 tab Q6HP PRN PO 02/28/25 14:30 03/01/25 11:26 1 TAB Morphine Sulfate 1 mg Q4HP PRN IV 02/28/25 14:30 03/01/25 09:40 1 MG Cyclobenzaprine HCl 10 mg TID PO 02/28/25 22:00 03/01/25 05:24 10 MG Docusate Sodium 100 mg BID PO 02/28/25 22:00 02/28/25 21:43 100 MG Cefazolin Sodium 50 ml @ 100 mls/hr Q8HR IV 02/28/25 22:00 03/02/25 14:29 03/01/25 05:24 100 MLS/HR Nitroglycerin 0.4 mg Q5MINP PRN SL 02/28/25 14:30 Morphine Sulfate 2 mg Q30M PRN IV 02/28/25 14:30 Patient Own Medication 100 mg PRN PRN PO 02/28/25 14:30 Hold Patient Own Medication 20 mg DAILY PO 03/01/25 10:00 Ferrous Sulfate 325 mg BIDWM PO 03/01/25 18:00 Laboratory Laboratory Tests 03/01/25 04:59 02/27/25 10:08 Test 02/27/25 10:08 Range/Units Serum Glucose 108 H 74-106 mg/dL Examination: GENERAL:Normal, HEENT:Normal, NECK:Normal, LUNGS:Normal, CVS:Normal, ABDOMEN:Normal, MSK:Normal, SKIN:Normal (So dressing intact seal functioning power source functioning, drain is intact, no nursing documentation of drain output since surgery), NEURO:Normal, :Normal Problem List/Assessment/Plan Problems: (1) Muscle spasm of back (2) Acute post-operative pain Assessment and Plan POD # 1 Events of today Patient drain output was not documented overnight, currently day documentation of drain 2. With 60 mL in the past 24 hours. Drain 1. Was found clamped and not able to drain. Nursing staff educated drain 1. Needs to be to no compression and open to drain, clamped removed Patient states her preoperative symptoms have improved she feels motivated to get up with physical therapy however pain is her limiting fracture at this time Medications reviewed and adjustments made Patient is progressing well We will keep drains in until patient is up and moving around Continue with physical therapy -Disposition: -Pending -Discharge RX: Pending -Follow up appointment: with Dr Ge on patient has scheduled appointment postoperative visit [phone] [id number] [facility] [address] [place] [id number] -Pain: - IV pain meds post op day 1, with PO supplementation, goal is to progress weaning off IV medications and control pain with PO only. morphine 1mg q 4 hours (PAIN 7-10) - P.O. analgesics:Tylenol 650MG (PAIN 1-3) [place] 10/325 mg (PAIN 4-6) - Muscle relaxers scheduled administration. This is a beneficial medications for the incisional pain as it is mostly related to muscle spasms. Flexeril 10 mg TID - Cepacol throat lozenges as needed for sore throat -Antibiotics Operative recommendations: -Postoperative dose:-Post operative antibiotics cefazolin 1 g IV piggyback every 8 hours x 48 hours total of 6 doses -DVT PPX: -Hold all chemical DVT/ blood thinners for 14 days postoperatively -use mechanical DVT PPX such as SCD's, ambulation -Activity: -Pending PT evaluation and patients progression -Sit at side of bed for meals -Goal: Ambulate independently and safely (may use assistive devices if needed) -Medical Therapy goals: -Afebrile- Patient may develop a expected post operative fever by day 2-3, this may not be accompanied with a elevation in WBC. if fever develops: Acetaminophen for fever. Albuterol nebulizer Tx every 12 hours for 24 hours to facilitate adequate lung expansion and prevent development of atelectasis. -Euglycemic: bloods sugars under 130mmol/L for optimal healing -Normotensive: Avoid events of hypertension. This helps to keep post operative healing intact and avoids destabilization of beneficial hemostatic coagulation. -Lumbar: -If patient is comfortable encouraged the patient to lay on their side to facilitate wound healing -Drains: -Hemovac drains: These will be to full compression unless otherwise ordered. Please record and document output AND characteristic of fluid present independently EVERY 6 hours more often as needed. if there in no output indicate this by documenting 0ml. If output is greater than 100 ml in one hour of christy blood call provider. These drains will be removed once the drainage is at a acceptable level (generally less than 100ml in 24 hours) -Dwight dressing: This will stay in place and will be removed at the patients follow up visit. Nursing is to assess the seal and power source. The seal should be intact and the power source should have a green flashing light indicating it is functioning well. Batteries can last up to 14 days. If a leak develops the dressing edges can be reinforced with a Tegaderm dressing to reestablish intact seal. The Dwight dressing is NOT a wound vac. This does not get changed, it does not need home health management. -Record output independently, drain 1. Is a deep drain and drain 2. Is a superficial drain. Wound drainage is described by type, color, amount, and odor. Drainage can be 1 Serous: Clear and thin, may be present in healing healthy wound. 2 Serosanguineous containing blood may also be present and healthy healing wound 3. Sanguinous primarily blood 4. Purulent this is thick, white, and pus like. It may be indicated to give of a infection and should constitute a call to the provider immediately with the plan that the sample should be cultured. -Yeager: discontinued in OR -Dressings Take care not to disrupt the DWIGHT dressing seal. If there is a break in the seal it can be trouble shot with a Tegaderm dressing. -Dressing to Hemovac drains may be changed once the drains have been removed by the provider. -Bowel management: -Colace 100mg bid -Diet: -Clear liquid diet and advance as patient tolerates within dietary limitations ( example: diabetic, Cardiac) -Incentive Spirometer: -10 x hour while awake, RN please educate and observe repeat demonstration, have IS at bedside POD #1 -X-rays: - none indicated at this time -Consults: -Physical Therapy evaluation, treatment recommendations, and discharge recommendations Call with questions Arin Valdez ACNP- Orthopaedic Spine Surgery nurse practitioner For Dr Gala Ge Patient was examined, chart reviewed, labs evaluated, and diagnostic studies and findings analyzed. Case was discussed with Dr. Stone Ge who formulated the plan of care. This medical document was created using an electronic medical record system with [employer] dictation system. Although this document has been carefully reviewed, there might still be some phonetic and typographical errors. These areas are purely typographical due to imperfections of the software programs, and do not reflect any compromise in the patient's medical care. Plan discussed with Plan discussed with: Patient, Other (Renetta x [phone]) Visit Coding Surgery Date of Service if different f: Feb 28, 2025 Billing Provider: ORLANDO VALDEZ NP Surgery Visit Codes: NOT BILLABLE ORLANDO VALDEZ NP Mar 01, 2025 14:28
[2025-03-01] MEDS: HYDROcodone-ACET 10/325MG TAB PO PRN (18:11)
[2025-03-01] MEDS: FERROUS SULFATE 325mg EC TAB PO SCH (18:27)
[2025-03-02] VITALS (7 sets, daily range): BP systolic 131–158; BP diastolic 65–83; PULSE 72–103; RESP 14–22; TEMP 97–100; O2SAT 95–99
[2025-03-02] MEDS: hydrALAZINE HCL 20 MG/ML VL IV ONE (06:21)
[2025-03-02] MEDS: CARISOPRODOL 350 MG TAB PO SCH (06:21)
[2025-03-02 07:20] LABS: Potassium 4.3 mmol/L (3.5-5.1); Sodium 140 mmol/L (136-145)
[2025-03-02 07:21] LABS: Anion Gap 8 (5-15); Calcium 8.8 mg/dL (8.7-10.4); Carbon Dioxide 24 mmol/L (20-31)
[2025-03-02 07:26] LABS: BUN/Creatinine Ratio 12.9 (10.0-20.0); Blood Urea Nitrogen 11 mg/dL (9-23); Chloride 108 mmol/L (98-107); Glucose 168 mg/dL (74-106)
[2025-03-02 07:46] LABS: Hematocrit 27.0 % (36.0-46.0); Hemoglobin 8.8 g/dL (12.2-16.2); Mean Corpuscular Hemoglobin 27.8 pg (28.0-32.0); Mean Corpuscular Volume 85.0 fL (80.0-100.0); Nucleated Red Blood Cells % 0.1 %
--- NOTE | 2025-03-02 10:34 | DVHPN2 ---
Progress Note Date Seen: Mar 02, 2025 Medical Necessity Reason Pt with a Central, PICC or Fol: Yes The following are medically ne: Tse Catheter Reason for tse catheter: Strict I&O Subjective Patient reports: No new complaints Review of Systems: HEENT:Normal, CVS:Normal, RESPIRATORY:Normal, GI:Normal, :Normal, MSK:Normal, NEURO:Normal Objective vital signs Vital Sign Date Time Temp Pulse Resp B/P (MAP) Pulse Ox O2 Delivery O2 Flow Rate FiO2 03/02/25 08:40 95 18 158/83 03/02/25 05:00 97.7 98 97.7 03/01/25 20:00 Oxymizer 3 N/A Total Intake and Output 03/01/25 03/01/25 03/02/25 15:00 23:00 07:00 Intake Total 240 ml 1490 ml 250 ml Output Total 60 ml 1300 ml 2500 ml Balance 180 ml 190 ml -2250 ml medications Current Medications Medications Dose Ordered Sig/Paul Route Start Time Stop Time Status Last Admin Dose Admin Dextrose/Sodium Chloride 1,000 ml @ 100 mls/hr Q10H IV 02/28/25 14:30 03/01/25 20:37 100 MLS/HR Ondansetron HCl 4 mg Q4HP PRN IV 02/28/25 14:30 Acetaminophen 650 mg Q6HP PRN PO 02/28/25 14:30 Docusate Sodium 100 mg BID PO 02/28/25 22:00 03/02/25 08:40 100 MG Cefazolin Sodium 50 ml @ 100 mls/hr Q8HR IV 02/28/25 22:00 03/02/25 14:29 03/02/25 05:45 100 MLS/HR Nitroglycerin 0.4 mg Q5MINP PRN SL 02/28/25 14:30 Morphine Sulfate 2 mg Q30M PRN IV 02/28/25 14:30 Patient Own Medication 100 mg PRN PRN PO 02/28/25 14:30 Hold Patient Own Medication 20 mg DAILY PO 03/01/25 10:00 Ferrous Sulfate 325 mg BIDWM PO 03/01/25 18:00 03/02/25 08:29 325 MG Acetaminophen/ Hydrocodone Bitart 1 tab Q4HPRN PRN PO 03/01/25 17:15 03/02/25 04:17 1 TAB Morphine Sulfate 2 mg Q4HP PRN IV 03/01/25 17:15 03/02/25 08:40 2 MG Carisoprodol 350 mg TID PO 03/02/25 06:00 03/02/25 06:21 350 MG Examination: GENERAL:Normal, HEENT:Normal, NECK:Normal, LUNGS:Normal, CVS:Normal, ABDOMEN:Normal, MSK:Normal, MSK:Abnormal (lumber drain), SKIN:Normal, NEURO:Normal, :Normal laboratory and microbiology Laboratory Tests 03/02/25 05:58 Test 03/02/25 05:58 Range/Units Serum Glucose 168 H 74-106 mg/dL Problem List/Assessment/Plan Problem List/Assessment/Plan * Depression: cymbalta *previous history of diabetes Her A1c will be checked. * Anemia for which the patient is to be transfused. * Morbid obesity. * uti: culture, iv rocephin * Status post lumbar spine surgery for which she will receive pain medication and physical therapy. * Advance care planning. The patient is a full code-Time spent was 18 minutes. Plan discussed with: Patient My Orders My Orders Orders - ALVIN BLUM MD Procedure Category Date Status Time Ceftriaxone Ivpb PHA 03/03/25 Verified Rocephin 09:00 Ceftriaxone Ivpb PHA 03/02/25 Verified Rocephin 10:30 Urine Bacterial BONNIE 03/02/25 Verified Culture 10:29 Duloxetine Hcl PHA 03/03/25 Verified Capsule (Cymbalta 10:00 Duloxetine Hcl PHA 03/02/25 Verified Capsule (Cymbalta 10:30 Date of Service: Mar 02, 2025 Billing Provider: ALVIN BLUM MD Common Visit Codes: [id number] INP/OBS CARE(HIGH) Secondary Visit Codes: [id number] CARE PLAN 30 MINUTES ALVIN BLUM MD Mar 02, 2025 10:34
[2025-03-02] MEDS: cefTRIAXone 1GM/50ML D5W 50 ML IV ONE (13:01)
--- NOTE | 2025-03-02 16:22 | DVHPN2 ---
Progress Note - Surgical Date Seen: Mar 02, 2025 Post op day Post op day: 2 Subjective Patient reports: No new complaints, Feels better, Other (Patient asking for morphine excessively) Review of Systems: HEENT:Normal, CVS:Normal, RESPIRATORY:Normal, GI:Normal, :Normal, MSK:Normal, NEURO:Normal (Patient states her preoperative symptoms have resolved she has been having normal postoperative pain no) Objective Vital signs Vital Sign Date Time Temp Pulse Resp B/P (MAP) Pulse Ox O2 Delivery O2 Flow Rate FiO2 03/02/25 13:03 96 14 157/77 03/02/25 13:00 98.1 96 98.1 03/02/25 08:00 Oxymizer 2 N/A Total Intake and Output 03/01/25 03/01/25 03/02/25 15:00 23:00 07:00 Intake Total 240 ml 1490 ml 250 ml Output Total 60 ml 1300 ml 2500 ml Balance 180 ml 190 ml -2250 ml Medications Current Medications Medications Dose Ordered Sig/Paul Route Start Time Stop Time Status Last Admin Dose Admin Dextrose/Sodium Chloride 1,000 ml @ 100 mls/hr Q10H IV 02/28/25 14:30 03/01/25 20:37 100 MLS/HR Ondansetron HCl 4 mg Q4HP PRN IV 02/28/25 14:30 Acetaminophen 650 mg Q6HP PRN PO 02/28/25 14:30 Docusate Sodium 100 mg BID PO 02/28/25 22:00 03/02/25 08:40 100 MG Nitroglycerin 0.4 mg Q5MINP PRN SL 02/28/25 14:30 Morphine Sulfate 2 mg Q30M PRN IV 02/28/25 14:30 Ferrous Sulfate 325 mg BIDWM PO 03/01/25 18:00 03/02/25 08:29 325 MG Acetaminophen/ Hydrocodone Bitart 1 tab Q4HPRN PRN PO 03/01/25 17:15 03/02/25 04:17 1 TAB Morphine Sulfate 2 mg Q4HP PRN IV 03/01/25 17:15 03/02/25 13:03 2 MG Carisoprodol 350 mg TID PO 03/02/25 06:00 03/02/25 14:14 350 MG Ceftriaxone Sodium 50 ml @ 100 mls/hr DAILY@09 IV 03/03/25 09:00 Duloxetine HCl 30 mg DAILY PO 03/03/25 10:00 Pantoprazole Sodium 40 mg DAILY IV 03/03/25 10:00 Laboratory Laboratory Tests 03/02/25 05:58 Test 03/02/25 05:58 Range/Units Serum Glucose 168 H 74-106 mg/dL Examination: GENERAL:Normal, HEENT:Normal, NECK:Normal, LUNGS:Normal, CVS:Normal, ABDOMEN:Normal, MSK:Normal, NEURO:Normal (patient stated her legs are feeling much better today), :Normal Problem List/Assessment/Plan Problems: (1) Acute post-operative pain (2) Muscle spasm of back Assessment and Plan POD # 2 Events of today Patient drain output drain 2 with 30 mL in the past 24 hours. Drain 1 no output Patient states her preoperative symptoms have improved she feels motivated to get up with physical therapy however pain is her limiting fracture at this time. Patient has been resistant to get up with physical therapy today stating that her pain is too great upon discussion with staff patient has been asking for morphine and not taking her oral pain medications. Ordered clarified oral medications needs a primary administration with IV morphine as a breakthrough pain medication only Medications reviewed and adjustments made Patient is progressing well We will keep drains in until patient is up and moving around Continue with physical therapy -Disposition: -Pending -Discharge RX: Pending -Follow up appointment: with Dr Ge on patient has scheduled appointment postoperative visit [phone] [id number] [facility] [address] [place] [id number] -Pain: - IV pain meds post op day 1, with PO supplementation, goal is to progress weaning off IV medications and control pain with PO only. morphine 2mg q 4 hours (PAIN 7-10) - P.O. analgesics:Tylenol 650MG (PAIN 1-3) [place] 10/325 mg (PAIN 4-6) - Muscle relaxers scheduled administration. This is a beneficial medications for the incisional pain as it is mostly related to muscle spasms. Flexeril 10 mg TID - Cepacol throat lozenges as needed for sore throat -Antibiotics Operative recommendations: -Postoperative dose:-Post operative antibiotics cefazolin 1 g IV piggyback every 8 hours x 48 hours total of 6 doses -DVT PPX: -Hold all chemical DVT/ blood thinners for 14 days postoperatively -use mechanical DVT PPX such as SCD's, ambulation -Activity: -Pending patient to work with PT. -Sit at side of bed for meals -Goal: Ambulate independently and safely (may use assistive devices if needed) -Medical Therapy goals: -Afebrile- Patient may develop a expected post operative fever by day 2-3, this may not be accompanied with a elevation in WBC. if fever develops: Acetaminophen for fever. Albuterol nebulizer Tx every 12 hours for 24 hours to facilitate adequate lung expansion and prevent development of atelectasis. -Euglycemic: bloods sugars under 130mmol/L for optimal healing -Normotensive: Avoid events of hypertension. This helps to keep post operative healing intact and avoids destabilization of beneficial hemostatic coagulation. -Lumbar: -If patient is comfortable encouraged the patient to lay on their side to facilitate wound healing -Drains: -Hemovac drains: These will be to no compression drain #1 and full compression drain #2. Please record and document output AND characteristic of fluid present independently EVERY 6 hours more often as needed. if there in no output indicate this by documenting 0ml. If output is greater than 100 ml in one hour of christy blood call provider. These drains will be removed once the drainage is at a acceptable level (generally less than 100ml in 24 hours) -Dwight dressing: This will stay in place and will be removed at the patients follow up visit. Nursing is to assess the seal and power source. The seal should be intact and the power source should have a green flashing light indicating it is functioning well. Batteries can last up to 14 days. If a leak develops the dressing edges can be reinforced with a Tegaderm dressing to reestablish intact seal. The Dwight dressing is NOT a wound vac. This does not get changed, it does not need home health management. -Record output independently, drain 1. Is a deep drain and drain 2. Is a superficial drain. Wound drainage is described by type, color, amount, and odor. Drainage can be 1 Serous: Clear and thin, may be present in healing healthy wound. 2 Serosanguineous containing blood may also be present and healthy healing wound 3. Sanguinous primarily blood 4. Purulent this is thick, white, and pus like. It may be indicated to give of a infection and should constitute a call to the provider immediately with the plan that the sample should be cultured. -Yeager: discontinued in OR- new order placed to DC -Dressings Take care not to disrupt the DWIGHT dressing seal. If there is a break in the seal it can be trouble shot with a Tegaderm dressing. -Dressing to Hemovac drains may be changed once the drains have been removed by the provider. -Bowel management: -Colace 100mg bid -Diet: -Clear liquid diet and advance as patient tolerates within dietary limitations ( example: diabetic, Cardiac) -Incentive Spirometer: -10 x hour while awake, RN please educate and observe repeat demonstration, have IS at bedside POD #1 -X-rays: - none indicated at this time -Consults: -Physical Therapy evaluation, treatment recommendations, and discharge recommendations Call with questions Arin Lawson [facility]- Orthopaedic Spine Surgery nurse practitioner For Dr Gala Ge Patient was examined, chart reviewed, labs evaluated, and diagnostic studies and findings analyzed. Case was discussed with Dr. Stone Ge who formulated the plan of care. This medical document was created using an electronic medical record system with [employer] dictation system. Although this document has been carefully reviewed, there might still be some phonetic and typographical errors. These areas are purely typographical due to imperfections of the software programs, and do not reflect any compromise in the patient's medical care. My Orders My Orders Orders - ORLANDO LAWSON NP Procedure Category Date Status Time Hydrocodone-Acet PHA 03/01/25 In Process 10/325mg Tab ([place] 17:15 Morphine Sulfate PHA 03/01/25 In Process Injection 17:15 Carisoprodol Tablet PHA 03/02/25 In Process ([place] Tablet) 06:00 Plan discussed with Plan discussed with: Patient, Other (Ronda X [phone]) Visit Coding Surgery Date of Service if different f: Feb 28, 2025 Billing Provider: ORLANDO LAWSON NP Surgery Visit Codes: NOT BILLABLE ORLANDO LAWSON NP Mar 02, 2025 16:22
[2025-03-02] MEDS: PANTOPRAZOLE 40 MG/10 ML VIAL INJ IV ONE (17:33)
[2025-03-03] VITALS (9 sets, daily range): BP systolic 104–138; BP diastolic 63–83; PULSE 90–101; RESP 16–22; TEMP 97–97.9; O2SAT 93–98
[2025-03-03] MEDS: cefTRIAXone 1GM/50ML D5W 50 ML IV SCH (08:38)
[2025-03-03] MEDS: PANTOPRAZOLE 40 MG/10 ML VIAL INJ IV SCH (08:58)
--- NOTE | 2025-03-03 12:05 | DVHPN2 ---
Progress Note - Surgical Date Seen: Mar 03, 2025 Post op day Post op day: 3 Subjective Patient reports: No new complaints, Feels better Review of Systems: HEENT:Normal, CVS:Normal, RESPIRATORY:Normal, GI:Normal, :Normal, MSK:Normal, MSK:Abnormal (patient had lumbar symptoms prior to surgery ) Objective Vital signs Vital Sign Date Time Temp Pulse Resp B/P (MAP) Pulse Ox O2 Delivery O2 Flow Rate FiO2 03/03/25 09:45 90 22 138/81 03/03/25 09:00 97.1 93 97.1 03/03/25 08:03 Oxymizer 2 N/A Total Intake and Output 03/02/25 03/02/25 03/03/25 15:00 23:00 07:00 Intake Total 290 ml 680 ml 1380 ml Output Total 0 ml Balance 290 ml 680 ml 1380 ml Medications Current Medications Medications Dose Ordered Sig/Paul Route Start Time Stop Time Status Last Admin Dose Admin Dextrose/Sodium Chloride 1,000 ml @ 100 mls/hr Q10H IV 02/28/25 14:30 03/03/25 04:30 100 MLS/HR Ondansetron HCl 4 mg Q4HP PRN IV 02/28/25 14:30 Docusate Sodium 100 mg BID PO 02/28/25 22:00 03/03/25 08:58 100 MG Nitroglycerin 0.4 mg Q5MINP PRN SL 02/28/25 14:30 Morphine Sulfate 2 mg Q30M PRN IV 02/28/25 14:30 Ferrous Sulfate 325 mg BIDWM PO 03/01/25 18:00 03/03/25 08:35 325 MG Acetaminophen/ Hydrocodone Bitart 1 tab Q4HPRN PRN PO 03/01/25 17:15 03/03/25 08:34 1 TAB Morphine Sulfate 2 mg Q4HP PRN IV 03/01/25 17:15 03/03/25 09:45 2 MG Carisoprodol 350 mg TID PO 03/02/25 06:00 03/03/25 05:33 350 MG Ceftriaxone Sodium 50 ml @ 100 mls/hr DAILY@09 IV 03/03/25 09:00 03/03/25 08:38 100 MLS/HR Duloxetine HCl 30 mg DAILY PO 03/03/25 10:00 03/03/25 08:58 30 MG Pantoprazole Sodium 40 mg DAILY IV 03/03/25 10:00 03/03/25 08:58 40 MG Acetaminophen 650 mg Q6HP PRN PO 03/02/25 20:45 Laboratory Laboratory Tests 03/02/25 05:58 Test 03/02/25 05:58 Range/Units Serum Glucose 168 H 74-106 mg/dL Microbiology Date/Time Source Procedure Growth Status 03/02/25 13:30 Voided Urine Urine Culture - Preliminary Resulted Examination: GENERAL:Normal, HEENT:Normal, NECK:Normal, LUNGS:Normal, CVS:Normal, ABDOMEN:Normal, MSK:Normal, SKIN:Normal (see wound note, will DC drains today), NEURO:Normal (resolution in preop symptoms) Problem List/Assessment/Plan Problems: (1) Acute post-operative pain (2) Muscle spasm of back Assessment and Plan POD # 3 Events of today dc drains today Patient states her preoperative symptoms have improved. Patient has been resistant to get up with physical therapy over the past few days. Patient reports Soma has improved her discomfort. Medications reviewed and adjustments made Patient is progressing well Continue with physical therapy , plan for DC with home health and DME -Disposition: -Pending -Discharge RX: Pending -Follow up appointment: with Dr Ge on patient has scheduled appointment postoperative visit [phone] [id number] [facility] [address] Goyal [address] [place] [id number] -Pain: - IV pain meds post op day 1, with PO supplementation, goal is to progress weaning off IV medications and control pain with PO only. morphine 2mg q 4 hours (PAIN 7-10) - P.O. analgesics:Tylenol 650MG (PAIN 1-3) [place] 10/325 mg (PAIN 4-6) - Muscle relaxers scheduled administration. This is a beneficial medications for the incisional pain as it is mostly related to muscle spasms. Flexeril 10 mg TID - Cepacol throat lozenges as needed for sore throat -Antibiotics Operative recommendations: -Postoperative dose:-Post operative antibiotics cefazolin 1 g IV piggyback every 8 hours x 48 hours total of 6 doses -DVT PPX: -Hold all chemical DVT/ blood thinners for 14 days postoperatively -use mechanical DVT PPX such as SCD's, ambulation -Activity: -Pending patient to work with PT. -Sit at side of bed for meals -Goal: Ambulate independently and safely (may use assistive devices if needed) -Medical Therapy goals: -Afebrile- Patient may develop a expected post operative fever by day 2-3, this may not be accompanied with a elevation in WBC. if fever develops: Acetaminophen for fever. Albuterol nebulizer Tx every 12 hours for 24 hours to facilitate adequate lung expansion and prevent development of atelectasis. -Euglycemic: bloods sugars under 130mmol/L for optimal healing -Normotensive: Avoid events of hypertension. This helps to keep post operative healing intact and avoids destabilization of beneficial hemostatic coagulation. -Lumbar: -If patient is comfortable encouraged the patient to lay on their side to facilitate wound healing -Dressings Take care not to disrupt the DWIGHT dressing seal. If there is a break in the seal it can be trouble shot with a Tegaderm dressing. -Dressing to Hemovac drains may be changed once the drains have been removed by the provider. -Bowel management: -Colace 100mg bid -Diet: - patient tolerating within dietary limitations ( example: diabetic, Cardiac) -Incentive Spirometer: -10 x hour while awake, RN please educate and observe repeat demonstration, have IS at bedside POD #1 -X-rays: - none indicated at this time -Consults: -Physical Therapy evaluation, treatment recommendations, and discharge recommendations Call with questions Arin Lawson ACNP- Orthopaedic Spine Surgery nurse practitioner For Dr Gala Ge Patient was examined, chart reviewed, labs evaluated, and diagnostic studies and findings analyzed. Case was discussed with Dr. Stone Ge who formulated the plan of care. This medical document was created using an electronic medical record system with [employer] dictation system. Although this document has been carefully reviewed, there might still be some phonetic and typographical errors. These areas are purely typographical due to imperfections of the software programs, and do not reflect any compromise in the patient's medical care. My Orders My Orders Orders - ORLANDO LAWSON [employer] Procedure Category Date Status Time Discontinue [place]ager LIZ 03/02/25 In Process Catheter 16:28 Acetaminophen Tablet PHA 03/02/25 In Process (Tylenol Tablet) 20:45 Communication Order ORDERS 03/02/25 Transmitted 21:01 Plan discussed with Plan discussed with: Patient Visit Coding Surgery Date of Service if different f: Mar 10, 2025 Billing Provider: ORLANDO LAWSON NP Surgery Visit Codes: NOT BILLABLE ORLANDO LAWSON NP Mar 03, 2025 12:05
--- NOTE | 2025-03-03 12:15 | DVHPN2 ---
Subjective The patient seen and examined at bedside. Complains of weakness and severe pain. Reviewed: Care Plan, H&P, Labs, Medications, Previous Orders, Radiology Changes from previous H/P or p: No Changes Objective Vitals Vital Signs Date Time Temp Pulse Resp B/P (MAP) Pulse Ox O2 Delivery O2 Flow Rate FiO2 03/03/25 09:45 90 22 138/81 03/03/25 09:00 97.1 93 97.1 03/03/25 08:03 Oxymizer 2 N/A Intake/Output Intake and Output 03/03/25 07:00 Intake Total 2350 ml Output Total 0 ml Balance 2350 ml Intake Oral 800 ml IV Total 1550 ml Output Urine Total 0 ml General Appearance: Alert, Oriented X3, mild distress HEENT: Atraumatic, PERRLA, EOMI, Mucous membr. moist/pink Neck: Supple Lungs: Clear to auscultation, Normal air movement Cardiovascular: Regular rate, Normal S1, Normal S2, No murmurs, Gallops, Rubs Abdomen: Normal bowel sounds, Soft, No tenderness Neuro: Cranial nerves 3-12 NL Psych/Mental Status: Mental status NL Medications Current Medications Medications Dose Ordered Sig/Paul Route Start Time Stop Time Status Last Admin Dose Admin Dextrose/Sodium Chloride 1,000 ml @ 100 mls/hr Q10H IV 02/28/25 14:30 03/03/25 04:30 100 MLS/HR Ondansetron HCl 4 mg Q4HP PRN IV 02/28/25 14:30 Docusate Sodium 100 mg BID PO 02/28/25 22:00 03/03/25 08:58 100 MG Nitroglycerin 0.4 mg Q5MINP PRN SL 02/28/25 14:30 Morphine Sulfate 2 mg Q30M PRN IV 02/28/25 14:30 Ferrous Sulfate 325 mg BIDWM PO 03/01/25 18:00 03/03/25 08:35 325 MG Acetaminophen/ Hydrocodone Bitart 1 tab Q4HPRN PRN PO 03/01/25 17:15 03/03/25 08:34 1 TAB Morphine Sulfate 2 mg Q4HP PRN IV 03/01/25 17:15 03/03/25 09:45 2 MG Carisoprodol 350 mg TID PO 03/02/25 06:00 03/03/25 05:33 350 MG Ceftriaxone Sodium 50 ml @ 100 mls/hr DAILY@09 IV 03/03/25 09:00 03/03/25 08:38 100 MLS/HR Duloxetine HCl 30 mg DAILY PO 03/03/25 10:00 03/03/25 08:58 30 MG Pantoprazole Sodium 40 mg DAILY IV 03/03/25 10:00 03/03/25 08:58 40 MG Acetaminophen 650 mg Q6HP PRN PO 03/02/25 20:45 Laboratory Results Laboratory Tests 03/02/25 05:58 Urinalysis Test 02/27/25 10:08 Urine Color Yellow (Yellow) Urine Clarity Ex.turbid (Clear) Urine pH 6.0 (5.0-9.0) Urine Specific [place] 1.025 (1.001-1.035) Urine Protein Trace (Negative) H Urine Ketones Negative (Negative) Urine Blood 1+ /uL (Negative) H Urine Nitrite Negative (Negative) Urine Bilirubin Negative (Negative) Urine Urobilinogen 3 mg/dL (Negative) H Urine Leukocyte Esterase 3+ /uL (Negative) Urine RBC 17 /hpf (0 - 4) Urine Microscopic WBC 38 /HPF (0-5) H Urine Squamous Epithelial Cells Mod /hpf (<5) Urine Bacteria Few /hpf (None Seen) H Urine Mucus Few (None Seen) Urine Glucose 1+ mg/dL (Normal) H Microbiology Microbiology Date/Time Source Procedure Growth Status 03/02/25 13:30 Voided Urine Urine Culture - Preliminary Resulted Labs and/or images reviewed: Labs reviewed by me Assessment/Plan Assessment/Plan * Depression: Continue cymbalta *previous history of diabetes Her A1c will be checked. Continue ssi * Anemia for which the patient was transfused. * Morbid obesity. * uti: culture, iv rocephin * Status post lumbar spine surgery for which she will receive pain medication and physical therapy Discharge when clear by ortho/spine service. Plan discussed with: Patient Date of Service: Mar 03, 2025 Billing Provider: CORBIN MONROE MD Common Visit Codes: [id number] INP/OBS CARE(HIGH) CORBIN MONROE MD Mar 03, 2025 12:15
[2025-03-03] MEDS: HYDROcodone-ACET 5/325MG TAB PO PRN (17:36)
[2025-03-04] VITALS (9 sets, daily range): BP systolic 134–153; BP diastolic 69–81; PULSE 86–95; RESP 16–20; TEMP 97.2–100.7; O2SAT 90–97
--- NOTE | 2025-03-04 10:30 | DVHPN2 ---
Progress Note - Surgical Date Seen: Mar 04, 2025 Post op day Post op day: 4 Subjective Patient reports: No new complaints, Feels better Review of Systems: HEENT:Normal, CVS:Normal, RESPIRATORY:Normal, GI:Normal, :Normal, MSK:Normal, NEURO:Abnormal (LBP prior to surgery) Objective Vital signs Vital Sign Date Time Temp Pulse Resp B/P (MAP) Pulse Ox O2 Delivery O2 Flow Rate FiO2 03/04/25 09:23 97.3 87 18 148/76 (100) 97 97.3 03/03/25 20:00 Oxymizer 2 N/A Total Intake and Output 03/03/25 03/03/25 03/04/25 15:00 23:00 07:00 Intake Total 290 ml 2200 ml 200 ml Balance 290 ml 2200 ml 200 ml Medications Current Medications Medications Dose Ordered Sig/Paul Route Start Time Stop Time Status Last Admin Dose Admin Dextrose/Sodium Chloride 1,000 ml @ 100 mls/hr Q10H IV 02/28/25 14:30 03/04/25 08:33 100 MLS/HR Ondansetron HCl 4 mg Q4HP PRN IV 02/28/25 14:30 Docusate Sodium 100 mg BID PO 02/28/25 22:00 03/04/25 08:57 100 MG Nitroglycerin 0.4 mg Q5MINP PRN SL 02/28/25 14:30 Morphine Sulfate 2 mg Q30M PRN IV 02/28/25 14:30 Ferrous Sulfate 325 mg BIDWM PO 03/01/25 18:00 03/04/25 08:57 325 MG Morphine Sulfate 2 mg Q4HP PRN IV 03/01/25 17:15 03/03/25 09:45 2 MG Carisoprodol 350 mg TID PO 03/02/25 06:00 03/04/25 06:01 350 MG Ceftriaxone Sodium 50 ml @ 100 mls/hr DAILY@09 IV 03/03/25 09:00 03/04/25 08:58 100 MLS/HR Duloxetine HCl 30 mg DAILY PO 03/03/25 10:00 03/04/25 08:57 30 MG Pantoprazole Sodium 40 mg DAILY IV 03/03/25 10:00 03/04/25 08:57 40 MG Acetaminophen 650 mg Q6HP PRN PO 03/02/25 20:45 Acetaminophen/ Hydrocodone Bitart 1 tab Q4HPRN PRN PO 03/03/25 16:30 03/04/25 09:36 1 TAB Laboratory Laboratory Tests 03/02/25 05:58 Test 03/02/25 05:58 Range/Units Serum Glucose 168 H 74-106 mg/dL Microbiology Date/Time Source Procedure Growth Status 03/02/25 13:30 Voided Urine Urine Culture - Preliminary Resulted Examination: HEENT:Normal, NECK:Normal, LUNGS:Normal, ABDOMEN:Normal, MSK:Normal, SKIN:Normal (island dressing CDI, no deainage from drains sites), NEURO:Normal (pt reposrt all pre op symptoms have resolved), :Abnormal (stress incontinenet) Problem List/Assessment/Plan Problems: (1) Muscle spasm of back (2) Acute post-operative pain Assessment and Plan POD # 4 Events of today Patient needs acute rehab due to deconditioning, she needs further PT sessions Patient states her preoperative symptoms have improved. Patient has been resistant to get up with physical therapy over the past few days. Patient reports Soma has improved her discomfort. Continue with physical therapy , plan for DC SNF with PT or rehab -Disposition: -rehab of SNF with PT services -Discharge RX: soma and oral pain meds. -Follow up appointment: with Dr Ge on patient has scheduled appointment postoperative visit [phone] [id number] [facility] [address] [place] [id number] -Pain: - IV pain meds post op day 1, with PO supplementation, goal is to progress weaning off IV medications and control pain with PO only. - P.O. analgesics:Tylenol 650MG (PAIN 1-3) [place] 10/325 mg (PAIN 4-6) - Muscle relaxers scheduled administration. This is a beneficial medications for the incisional pain as it is mostly related to muscle spasms. Flexeril 10 mg TID - Cepacol throat lozenges as needed for sore throat -Antibiotics Operative recommendations: -Postoperative dose:-Post operative antibiotics cefazolin 1 g IV piggyback every 8 hours x 48 hours total of 6 doses -DVT PPX: -Hold all chemical DVT/ blood thinners for 14 days postoperatively -use mechanical DVT PPX such as SCD's, ambulation -Activity: -not advancing with PT. -Sit at side of bed for meals -Goal: Ambulate independently and safely (may use assistive devices if needed) -Medical Therapy goals: -Afebrile- Patient may develop a expected post operative fever by day 2-3, this may not be accompanied with a elevation in WBC. if fever develops: Acetaminophen for fever. Albuterol nebulizer Tx every 12 hours for 24 hours to facilitate adequate lung expansion and prevent development of atelectasis. -Euglycemic: bloods sugars under 130mmol/L for optimal healing -Normotensive: Avoid events of hypertension. This helps to keep post operative healing intact and avoids destabilization of beneficial hemostatic coagulation. -Lumbar: -If patient is comfortable encouraged the patient to lay on their side to facilitate wound healing -Dressings island dressing check q 9 hours -Bowel management: -Colace 100mg bid -Diet: - patient tolerating within dietary limitations ( example: diabetic, Cardiac) -Incentive Spirometer: -10 x hour while awake, RN please educate and observe repeat demonstration, have IS at bedside POD #1 -X-rays: - none indicated at this time -Consults: -Physical Therapy evaluation, treatment recommendations, and discharge recommendations Call with questions [facility] Val[facility]- Orth[facility]edic Spine Surgery nurse practitioner For Dr Gala Ge Patient was examined, chart reviewed, labs evaluated, and diagnostic studies and findings analyzed. Case was discussed with Dr. Stone Ge who formulated the plan of care. This medical document was created using an electronic medical record system with [employer] dictation system. Although this document has been carefully reviewed, there might still be some phonetic and typographical errors. These areas are purely typographical due to imperfections of the software programs, and do not reflect any compromise in the patient's medical care. My Orders My Orders Orders - ORLANDO VALDEZ NP Procedure Category Date Status Time Hydrocodone-Acet PHA 03/03/25 In Process 5/325mg Tab ([place] 16:30 Plan discussed with Plan discussed with: Patient, Other (Vanessa RN X [phone]) Visit Coding Surgery Date of Service if different f: Mar 04, 2025 Billing Provider: ORLANDO VALDEZ NP Surgery Visit Codes: NOT BILLABLE ORLANDO VALDEZ NP Mar 04, 2025 10:30
--- NOTE | 2025-03-04 15:13 | DVHPN2 ---
Subjective The patient seen and examined at bedside. Still complains of pain Reviewed: Care Plan, H&P, Labs, Medications, Previous Orders, Radiology Changes from previous H/P or p: No Changes Objective Vitals Vital Signs Date Time Temp Pulse Resp B/P (MAP) Pulse Ox O2 Delivery O2 Flow Rate FiO2 03/04/25 13:00 98.9 86 16 139/70 (93) 90 98.9 03/04/25 08:00 Room Air* 0 21 Intake/Output Intake and Output 03/04/25 07:00 Intake Total 2690 ml Balance 2690 ml Intake Oral 2140 ml IV Total 550 ml # Voids 2 General Appearance: Alert, Oriented X3, Cooperative, moderate distress HEENT: Atraumatic, PERRLA, EOMI, Mucous membr. moist/pink Neck: Supple Lungs: Clear to auscultation, Normal air movement Cardiovascular: Regular rate, Normal S1, Normal S2, No murmurs, Gallops, Rubs Abdomen: Normal bowel sounds, Soft, No tenderness Neuro: Cranial nerves 3-12 NL Psych/Mental Status: Mental status NL Medications Current Medications Medications Dose Ordered Sig/Paul Route Start Time Stop Time Status Last Admin Dose Admin Dextrose/Sodium Chloride 1,000 ml @ 100 mls/hr Q10H IV 02/28/25 14:30 03/04/25 08:33 100 MLS/HR Ondansetron HCl 4 mg Q4HP PRN IV 02/28/25 14:30 Docusate Sodium 100 mg BID PO 02/28/25 22:00 03/04/25 08:57 100 MG Nitroglycerin 0.4 mg Q5MINP PRN SL 02/28/25 14:30 Morphine Sulfate 2 mg Q30M PRN IV 02/28/25 14:30 Ferrous Sulfate 325 mg BIDWM PO 03/01/25 18:00 03/04/25 08:57 325 MG Morphine Sulfate 2 mg Q4HP PRN IV 03/01/25 17:15 03/03/25 09:45 2 MG Carisoprodol 350 mg TID PO 03/02/25 06:00 03/04/25 14:35 350 MG Ceftriaxone Sodium 50 ml @ 100 mls/hr DAILY@09 IV 03/03/25 09:00 03/04/25 08:58 100 MLS/HR Duloxetine HCl 30 mg DAILY PO 03/03/25 10:00 03/04/25 08:57 30 MG Pantoprazole Sodium 40 mg DAILY IV 03/03/25 10:00 03/04/25 08:57 40 MG Acetaminophen 650 mg Q6HP PRN PO 03/02/25 20:45 Acetaminophen/ Hydrocodone Bitart 1 tab Q4HPRN PRN PO 03/03/25 16:30 03/04/25 14:36 1 TAB Laboratory Results Laboratory Tests 03/02/25 05:58 Urinalysis Test 02/27/25 10:08 Urine Color Yellow (Yellow) Urine Clarity Ex.turbid (Clear) Urine pH 6.0 (5.0-9.0) Urine Specific [place] 1.025 (1.001-1.035) Urine Protein Trace (Negative) H Urine Ketones Negative (Negative) Urine Blood 1+ /uL (Negative) H Urine Nitrite Negative (Negative) Urine Bilirubin Negative (Negative) Urine Urobilinogen 3 mg/dL (Negative) H Urine Leukocyte Esterase 3+ /uL (Negative) Urine RBC 17 /hpf (0 - 4) Urine Microscopic WBC 38 /HPF (0-5) H Urine Squamous Epithelial Cells Mod /hpf (<5) Urine Bacteria Few /hpf (None Seen) H Urine Mucus Few (None Seen) Urine Glucose 1+ mg/dL (Normal) H Microbiology Microbiology Date/Time Source Procedure Growth Status 03/02/25 13:30 Voided Urine Urine Culture - Preliminary Resulted Labs and/or images reviewed: Labs reviewed by me Assessment/Plan Assessment/Plan * Depression: Continue cymbalta *previous history of diabetes Her A1c will be checked. Continue ssi * Anemia for which the patient was transfused. * Morbid obesity. * uti: culture, iv rocephin * Status post lumbar spine surgery for which she will receive pain medication and physical therapy Discharge when clear by ortho/spine service. Plan discussed with: Patient My Orders Orders - CORBIN MONROE MD Procedure Category Date Status Time Cover Wound With Foam LIZ 03/04/25 In Process Dressing 11:23 Date of Service: Mar 04, 2025 Billing Provider: CORBIN MONROE MD Common Visit Codes: [id number] INP/OBS CARE(HIGH) CORBIN MONROE MD Mar 04, 2025 15:13
[2025-03-04] MEDS: ACETAMINOPHEN 325 MG TAB PO PRN (21:30)
[2025-03-05 05:00] VITALS: BP 148/91; PULSE 82; RESP 18; TEMP 98.1; O2SAT 98
--- NOTE | 2025-03-05 07:28 | DVHPN2 ---
Progress Note - Surgical Date Seen: Mar 05, 2025 Post op day Post op day: 5 Subjective Patient reports: No new complaints, Feels better, Other (slow progression with PT, patient not safe for home discharge) Review of Systems: HEENT:Normal, CVS:Normal, RESPIRATORY:Normal, GI:Normal, :Normal, MSK:Normal (patient is deconditioning -lacked motivation to work with PT), NEURO:Normal Objective Vital signs Vital Sign Date Time Temp Pulse Resp B/P (MAP) Pulse Ox O2 Delivery O2 Flow Rate FiO2 03/05/25 05:00 98.1 82 18 148/91 (110) 98 98.1 03/04/25 20:00 Room Air* 0 21 Total Intake and Output 03/04/25 03/04/25 03/05/25 15:00 23:00 07:00 Intake Total 290 ml 500 ml 1000 ml Output Total 700 ml Balance 290 ml -200 ml 1000 ml Medications Current Medications Medications Dose Ordered Sig/Paul Route Start Time Stop Time Status Last Admin Dose Admin Dextrose/Sodium Chloride 1,000 ml @ 100 mls/hr Q10H IV 02/28/25 14:30 03/04/25 16:50 100 MLS/HR Ondansetron HCl 4 mg Q4HP PRN IV 02/28/25 14:30 Docusate Sodium 100 mg BID PO 02/28/25 22:00 03/04/25 21:30 100 MG Nitroglycerin 0.4 mg Q5MINP PRN SL 02/28/25 14:30 Morphine Sulfate 2 mg Q30M PRN IV 02/28/25 14:30 Ferrous Sulfate 325 mg BIDWM PO 03/01/25 18:00 03/04/25 16:50 325 MG Morphine Sulfate 2 mg Q4HP PRN IV 03/01/25 17:15 03/03/25 09:45 2 MG Carisoprodol 350 mg TID PO 03/02/25 06:00 03/05/25 05:37 350 MG Ceftriaxone Sodium 50 ml @ 100 mls/hr DAILY@09 IV 03/03/25 09:00 03/04/25 08:58 100 MLS/HR Duloxetine HCl 30 mg DAILY PO 03/03/25 10:00 03/04/25 08:57 30 MG Pantoprazole Sodium 40 mg DAILY IV 03/03/25 10:00 03/04/25 08:57 40 MG Acetaminophen 650 mg Q6HP PRN PO 03/02/25 20:45 03/04/25 21:30 650 MG Acetaminophen/ Hydrocodone Bitart 1 tab Q4HPRN PRN PO 03/03/25 16:30 03/05/25 03:08 1 TAB Laboratory Laboratory Tests 03/02/25 05:58 Test 03/02/25 05:58 Range/Units Serum Glucose 168 H 74-106 mg/dL Microbiology Date/Time Source Procedure Growth Status 03/02/25 13:30 Voided Urine Urine Culture - Preliminary Resulted Examination: GENERAL:Normal, HEENT:Normal, NECK:Normal, LUNGS:Normal, CVS:Normal, ABDOMEN:Normal, MSK:Normal, SKIN:Normal (island dressing in place), NEURO:Normal, :Normal Problem List/Assessment/Plan Problems: (1) Muscle spasm of back (2) Acute post-operative pain Assessment and Plan POD # 5 Events of today pending SS reassessment for rehab/snf placement Patient states her preoperative symptoms have improved. Patient has been resistant to get up with physical therapy over the past few days. Patient reports Soma has improved her discomfort. Continue with physical therapy , plan for DC SNF with PT or rehab weaning pain meds Patient to get up to chair for meals -Disposition: -rehab of SNF with PT services -Discharge RX: soma and oral pain meds. -Follow up appointment: with Dr Ge on patient has scheduled appointment postoperative visit [phone] [id number] [facility] [address] [place] [id number] -Pain: - IV pain meds post op day 1, with PO supplementation, goal is to progress weaning off IV medications and control pain with PO only. - P.O. analgesics:Tylenol 650MG (PAIN 1-3) [place] 10/325 mg (PAIN 4-6) - Muscle relaxers scheduled administration. This is a beneficial medications for the incisional pain as it is mostly related to muscle spasms.soma - Cepacol throat lozenges as needed for sore throat -DVT PPX: -Hold all chemical DVT/ blood thinners for 14 days postoperatively -use mechanical DVT PPX such as SCD's, ambulation -Activity: -not advancing with PT. encourage patient to continue -Sit at side of bed for meals -Goal: Ambulate independently and safely (may use assistive devices if needed) -Medical Therapy goals: -Afebrile- Patient may develop a expected post operative fever by day 2-3, this may not be accompanied with a elevation in WBC. if fever develops: Acetaminophen for fever. Albuterol nebulizer Tx every 12 hours for 24 hours to facilitate adequate lung expansion and prevent development of atelectasis. -Euglycemic: bloods sugars under 130mmol/L for optimal healing -Normotensive: Avoid events of hypertension. This helps to keep post operative healing intact and avoids destabilization of beneficial hemostatic coagulation. -Lumbar: -If patient is comfortable encouraged the patient to lay on their side to facilitate wound healing -Dressings island dressing check q (TID) every 8 hours replace PRN -Bowel management: -Colace 100mg bid -Diet: - patient tolerating within dietary limitations ( example: diabetic, Cardiac) -Incentive Spirometer: -10 x hour while awake, RN please educate and observe repeat demonstration, have IS at bedside POD #1 -X-rays: - none indicated at this time -Consults: -Physical Therapy evaluation, treatment recommendations, and discharge recommendations Call with questions Arin Valdez ACNP- Orthopaedic Spine Surgery nurse practitioner For Dr Gala Ge Patient was examined, chart reviewed, labs evaluated, and diagnostic studies and findings analyzed. Case was discussed with Dr. Stone Ge who formulated the plan of care. This medical document was created using an electronic medical record system with [employer] dictation system. Although this document has been carefully reviewed, there might still be some phonetic and typographical errors. These areas are purely typographical due to imperfections of the software programs, and do not reflect any compromise in the patient's medical care. My Orders My Orders Orders - ORLANDO VALDEZ NP Procedure Category Date Status Time * Business Project Analyst CONS 03/04/25 Transmitted Consult 12:40 * Business Project Analyst CONS 03/05/25 Transmitted Consult Plan discussed with Plan discussed with: Patient, Other (brett alexandre x [phone]) Visit Coding Surgery Date of Service if different f: Feb 28, 2025 Billing Provider: ORLANDO VALDEZ NP Surgery Visit Codes: NOT BILLABLE ORLANDO VALDEZ NP Mar 05, 2025 07:28
[2025-03-05 08:00] VITALS: PULSE 87; RESP 20
[2025-03-05 08:57] VITALS: BP 125/61; PULSE 87; RESP 17; TEMP 98; O2SAT 92
[2025-03-05 09:38] LABS: Hematocrit 25.7 % (36.0-46.0); Hemoglobin 8.5 g/dL (12.2-16.2)
[2025-03-05 09:49] LABS: Chloride 102 mmol/L (98-107); Sodium 137 mmol/L (136-145)
[2025-03-05 09:50] LABS: Anion Gap 8 (5-15); Calcium 8.8 mg/dL (8.7-10.4); Carbon Dioxide 27 mmol/L (20-31)
[2025-03-05 09:53] LABS: Potassium 3.3 mmol/L (3.5-5.1)
[2025-03-05 09:55] LABS: BUN/Creatinine Ratio 7.2 (10.0-20.0)
[2025-03-05] MEDS: HYDROcodone-ACET 5/325MG TAB PO PRN (09:57)
[2025-03-05 10:03] LABS: Blood Urea Nitrogen 5 mg/dL (9-23); Glucose 204 mg/dL (74-106)
[2025-03-05 13:00] VITALS: BP 144/71; PULSE 86; RESP 18; TEMP 98.3; O2SAT 92
--- NOTE | 2025-03-05 14:50 | DVHPN2 ---
Subjective The patient seen and examined at bedside. Still complains of pain Reviewed: Care Plan, H&P, Labs, Medications, Previous Orders, Radiology Changes from previous H/P or p: No Changes Objective Vitals Vital Signs Date Time Temp Pulse Resp B/P (MAP) Pulse Ox O2 Delivery O2 Flow Rate FiO2 03/05/25 13:00 98.3 86 18 144/71 (95) 92 98.3 03/05/25 08:00 Room Air* 0 21 Intake/Output Intake and Output 03/05/25 07:00 Intake Total 1790 ml Output Total 700 ml Balance 1090 ml Intake Oral 940 ml IV Total 850 ml Output Urine Total 700 ml # Voids 2 General Appearance: Alert, Oriented X3, Cooperative, moderate distress HEENT: Atraumatic, PERRLA, EOMI, Mucous membr. moist/pink Neck: Supple Lungs: Clear to auscultation, Normal air movement Cardiovascular: Regular rate, Normal S1, Normal S2, No murmurs, Gallops, Rubs Abdomen: Normal bowel sounds, Soft, No tenderness Neuro: Cranial nerves 3-12 NL Psych/Mental Status: Mental status NL Medications Current Medications Medications Dose Ordered Sig/Paul Route Start Time Stop Time Status Last Admin Dose Admin Dextrose/Sodium Chloride 1,000 ml @ 100 mls/hr Q10H IV 02/28/25 14:30 03/05/25 13:18 100 MLS/HR Ondansetron HCl 4 mg Q4HP PRN IV 02/28/25 14:30 Docusate Sodium 100 mg BID PO 02/28/25 22:00 03/05/25 09:46 100 MG Nitroglycerin 0.4 mg Q5MINP PRN SL 02/28/25 14:30 Morphine Sulfate 2 mg Q30M PRN IV 02/28/25 14:30 Ferrous Sulfate 325 mg BIDWM PO 03/01/25 18:00 03/05/25 09:46 325 MG Carisoprodol 350 mg TID PO 03/02/25 06:00 03/05/25 13:18 350 MG Ceftriaxone Sodium 50 ml @ 100 mls/hr DAILY@09 IV 03/03/25 09:00 03/05/25 09:48 100 MLS/HR Duloxetine HCl 30 mg DAILY PO 03/03/25 10:00 03/05/25 09:46 30 MG Pantoprazole Sodium 40 mg DAILY IV 03/03/25 10:00 03/05/25 09:46 40 MG Acetaminophen 650 mg Q6HP PRN PO 03/02/25 20:45 03/04/25 21:30 650 MG Morphine Sulfate 1 mg Q6HPRN PRN IV 03/05/25 07:30 Acetaminophen/ Hydrocodone Bitart 1 tab Q6HP PRN PO 03/05/25 08:30 03/05/25 09:57 1 TAB Laboratory Results Laboratory Tests 03/02/25 05:58 03/05/25 09:09 Chemistry Test 03/05/25 09:09 Calcium Level 8.8 mg/dL (8.7-10.4) Urinalysis Test 02/27/25 10:08 Urine Color Yellow (Yellow) Urine Clarity Ex.turbid (Clear) Urine pH 6.0 (5.0-9.0) Urine Specific [place] 1.025 (1.001-1.035) Urine Protein Trace (Negative) H Urine Ketones Negative (Negative) Urine Blood 1+ /uL (Negative) H Urine Nitrite Negative (Negative) Urine Bilirubin Negative (Negative) Urine Urobilinogen 3 mg/dL (Negative) H Urine Leukocyte Esterase 3+ /uL (Negative) Urine RBC 17 /hpf (0 - 4) Urine Microscopic WBC 38 /HPF (0-5) H Urine Squamous Epithelial Cells Mod /hpf (<5) Urine Bacteria Few /hpf (None Seen) H Urine Mucus Few (None Seen) Urine Glucose 1+ mg/dL (Normal) H Microbiology Microbiology Date/Time Source Procedure Growth Status 03/02/25 13:30 Voided Urine Urine Culture - Final Complete Labs and/or images reviewed: Labs reviewed by me Assessment/Plan Assessment/Plan * Depression: Continue cymbalta *previous history of diabetes Her A1c will be checked. Continue ssi * Anemia for which the patient was transfused. * Morbid obesity. * uti: culture, iv rocephin * Status post lumbar spine surgery for which she will receive pain medication and physical therapy Discharge when clear by ortho/spine service. Plan discussed with: Patient Date of Service: Mar 05, 2025 Billing Provider: CORBIN MONROE MD Common Visit Codes: [id number] INP/OBS CARE(HIGH) CORBIN MONROE MD Mar 05, 2025 14:50
[2025-03-05 20:00] VITALS: PULSE 97; RESP 20
[2025-03-05 21:00] VITALS: BP 134/77; PULSE 99; RESP 17; TEMP 98.6; O2SAT 93
[2025-03-06] VITALS (9 sets, daily range): BP systolic 123–158; BP diastolic 62–88; PULSE 84–95; RESP 16–18; TEMP 98–99.5; O2SAT 92–96
[2025-03-06 06:29] LABS: Hematocrit 26.1 % (36.0-46.0); Hemoglobin 8.6 g/dL (12.2-16.2); Mean Corpuscular Hemoglobin 28.5 pg (28.0-32.0); Mean Corpuscular Volume 86.3 fL (80.0-100.0); Nucleated Red Blood Cells % 0.3 %
[2025-03-06 06:45] LABS: Calcium 9.1 mg/dL (8.7-10.4); Chloride 103 mmol/L (98-107); Potassium 3.6 mmol/L (3.5-5.1); Sodium 137 mmol/L (136-145)
[2025-03-06 06:46] LABS: Anion Gap 7 (5-15); Carbon Dioxide 27 mmol/L (20-31)
[2025-03-06 06:52] LABS: BUN/Creatinine Ratio 15.6 (10.0-20.0); Blood Urea Nitrogen 10 mg/dL (9-23)
[2025-03-06 06:54] LABS: Glucose 144 mg/dL (74-106)
--- NOTE | 2025-03-06 10:50 | DVHPN2 ---
Progress Note Date Seen: Mar 06, 2025 Medical Necessity Reason Pt with a Central, PICC or Fol: No Subjective Patient reports: No new complaints Review of Systems: HEENT:Normal, CVS:Normal, RESPIRATORY:Normal, GI:Normal, :Normal, MSK:Normal, NEURO:Normal Objective vital signs Vital Sign Date Time Temp Pulse Resp B/P (MAP) Pulse Ox O2 Delivery O2 Flow Rate FiO2 03/06/25 09:00 98.3 86 18 152/86 (108) 92 98.3 03/06/25 07:51 Room Air* 0 21 Total Intake and Output 03/05/25 03/05/25 03/06/25 15:00 23:00 07:00 Intake Total 50 ml 1736 ml 500 ml Output Total 400 ml Balance 50 ml 1736 ml 100 ml medications Current Medications Medications Dose Ordered Sig/Paul Route Start Time Stop Time Status Last Admin Dose Admin Dextrose/Sodium Chloride 1,000 ml @ 100 mls/hr Q10H IV 02/28/25 14:30 03/06/25 10:39 100 MLS/HR Ondansetron HCl 4 mg Q4HP PRN IV 02/28/25 14:30 Docusate Sodium 100 mg BID PO 02/28/25 22:00 03/06/25 08:44 100 MG Nitroglycerin 0.4 mg Q5MINP PRN SL 02/28/25 14:30 Morphine Sulfate 2 mg Q30M PRN IV 02/28/25 14:30 Ferrous Sulfate 325 mg BIDWM PO 03/01/25 18:00 03/06/25 08:44 325 MG Carisoprodol 350 mg TID PO 03/02/25 06:00 03/06/25 06:11 350 MG Ceftriaxone Sodium 50 ml @ 100 mls/hr DAILY@09 IV 03/03/25 09:00 03/06/25 08:44 100 MLS/HR Duloxetine HCl 30 mg DAILY PO 03/03/25 10:00 03/06/25 08:44 30 MG Pantoprazole Sodium 40 mg DAILY IV 03/03/25 10:00 03/06/25 08:44 40 MG Acetaminophen 650 mg Q6HP PRN PO 03/02/25 20:45 03/04/25 21:30 650 MG Morphine Sulfate 1 mg Q6HPRN PRN IV 03/05/25 07:30 Acetaminophen/ Hydrocodone Bitart 1 tab Q6HP PRN PO 03/05/25 08:30 03/06/25 03:44 1 TAB Examination: GENERAL:Normal, HEENT:Normal, NECK:Normal, LUNGS:Normal, CVS:Normal, ABDOMEN:Normal, MSK:Normal, MSK:Abnormal (edema+), SKIN:Normal, NEURO:Normal, :Normal laboratory and microbiology Laboratory Tests 03/06/25 05:43 Test 03/06/25 05:43 Range/Units Serum Glucose 144 H 74-106 mg/dL Microbiology Date/Time Source Procedure Growth Status 03/02/25 13:30 Voided Urine Urine Culture - Final Complete Problem List/Assessment/Plan Problem List/Assessment/Plan * Depression: cymbalta *previous history of diabetes Her A1c will be checked. * Anemia for which the patient is to be transfused. * Morbid obesity. * uti: culture, iv rocephin * Status post lumbar spine surgery for which she will receive pain medication and physical therapy. * fluid overload: dc ivf, iv lasix * Advance care planning. The patient is a full code-Time spent was 18 minutes. Plan discussed with: Patient Dietary Evaluation Review Comments: 1. Check pt's A11C 2. Encourage PO intake to meet 75% of her needs 3. Estimated nutrition needs used adj BW 61kg 4. Offer oral supplements glucerna 240 ml bid if PO intake <50% 5. Lan BID for healing Expected Outcomes/Goals: healed sugeical wounds, gradual wt loss Date of Service: Mar 06, 2025 Billing Provider: ALVIN BLUM MD Common Visit Codes: [id number] INP/OBS CARE(HIGH) ALVIN BLUM MD Mar 06, 2025 10:50
[2025-03-06] MEDS: FUROSEMIDE 20 MG/2 ML VIAL IV ONE (12:09)
[2025-03-06] MEDS: POTASSIUM CHL 20 Meq TABLET PO ONE (12:09)
--- NOTE | 2025-03-06 14:01 | DVHPN2 ---
Progress Note - Surgical Date Seen: Mar 06, 2025 Post op day Post op day: 6 Subjective Patient reports: No new complaints, Feels better, Other (Patient has a live-in able to ambulate physical therapy 5 ft since surgery patient is poorly motivated to get up and move, states that her pain is well controlled however she is not getting up and working with) Review of Systems: HEENT:Normal, CVS:Normal, RESPIRATORY:Normal, GI:Normal, :Normal, MSK:Normal, NEURO:Normal (Preoperative symptoms have resolved per patient's report) Objective Vital signs Vital Sign Date Time Temp Pulse Resp B/P (MAP) Pulse Ox O2 Delivery O2 Flow Rate FiO2 03/06/25 12:09 152/86 03/06/25 09:00 98.3 86 18 92 98.3 03/06/25 07:51 Room Air* 0 21 Total Intake and Output 03/05/25 03/05/25 03/06/25 15:00 23:00 07:00 Intake Total 50 ml 1736 ml 500 ml Output Total 400 ml Balance 50 ml 1736 ml 100 ml Medications Current Medications Medications Dose Ordered Sig/Paul Route Start Time Stop Time Status Last Admin Dose Admin Ondansetron HCl 4 mg Q4HP PRN IV 02/28/25 14:30 Docusate Sodium 100 mg BID PO 02/28/25 22:00 03/06/25 08:44 100 MG Nitroglycerin 0.4 mg Q5MINP PRN SL 02/28/25 14:30 Morphine Sulfate 2 mg Q30M PRN IV 02/28/25 14:30 Ferrous Sulfate 325 mg BIDWM PO 03/01/25 18:00 03/06/25 08:44 325 MG Carisoprodol 350 mg TID PO 03/02/25 06:00 03/06/25 13:27 350 MG Duloxetine HCl 30 mg DAILY PO 03/03/25 10:00 03/06/25 08:44 30 MG Acetaminophen 650 mg Q6HP PRN PO 03/02/25 20:45 03/04/25 21:30 650 MG Morphine Sulfate 1 mg Q6HPRN PRN IV 03/05/25 07:30 Acetaminophen/ Hydrocodone Bitart 1 tab Q6HP PRN PO 03/05/25 08:30 03/06/25 12:18 1 TAB Pantoprazole Sodium 40 mg DAILY@0600 PO 03/07/25 06:00 Laboratory Laboratory Tests 03/06/25 05:43 Test 03/06/25 05:43 Range/Units Serum Glucose 144 H 74-106 mg/dL Microbiology Date/Time Source Procedure Growth Status 03/02/25 13:30 Voided Urine Urine Culture - Final Complete Examination: GENERAL:Normal, HEENT:Normal, NECK:Normal, LUNGS:Normal, ABDOMEN:Normal, MSK:Normal, SKIN:Normal (Patient is becoming deconditioned due to lack of movement posterior lumbar spinal incision well approximated with subcuticular suture covered with island dressing), NEURO:Normal (Patient states her preoperative), :Normal Labs and/or images reviewed: Labs reviewed by me Problem List/Assessment/Plan Problems: (1) Acute post-operative pain (2) Muscle spasm of back Assessment and Plan POD # 6 Events of today Patient only ambulating 5 ft with physical therapy, patient educated that if she is not able to work with physical therapy for up to 3 hours a day she will not qualify to go to rehab of any sort instructional services specialist we will speak to patient today regarding this and other suggestions for discharge. PT note: PATIENT IS MOD/MAX A FOR BED MOBS AND TRANSFERS. PATIENT PARTICIPATED IN SKILLED PT, DEMO'D FAIR TOLERANCE. PATIENT WORKED ON STS X 3 AND WAS ABLE TO TAKE SIDE STEPS APPROX 5FT WITH MOD A USING FWW FOR STABILITY. PATIENT ALSO WORKED ON STRENGTHENING EXERCISES WHILE SITTING EOB, [id number] FOR BLE ACTIVITY. Patient made aware that she needs to be able to participate with PT for at least 3 hours a day to go to rehab. Patient states she wants to go home but her current deconditioning make it not safe to DC home with HH. Patient states her preoperative symptoms have improved. Patient continues to be resistant to get up with physical therapy. Patient reports Soma has improved her discomfort. Continue with physical therapy weaning pain meds Patient to get up to chair for meals -Disposition: -rehab of SNF with PT services- determination is still in process -Discharge RX: soma and oral pain meds. -Follow up appointment: with Dr Ge on patient has scheduled appointment postoperative visit [phone] [id number] [facility] [address] [place] [id number] -Pain: - IV pain meds post op day 1, with PO supplementation, goal is to progress weaning off IV medications and control pain with PO only. - P.O. analgesics:Tylenol 650MG (PAIN 1-3) [place] 10/325 mg (PAIN 4-6) - Muscle relaxers scheduled administration. This is a beneficial medications for the incisional pain as it is mostly related to muscle spasms.soma - Cepacol throat lozenges as needed for sore throat -DVT PPX: -Hold all chemical DVT/ blood thinners for 14 days postoperatively -use mechanical DVT PPX such as SCD's, ambulation -Activity: -not advancing with PT. encourage patient to continue -Sit at side of bed for meals -Goal: Ambulate independently and safely (may use assistive devices if needed) -Medical Therapy goals: -Afebrile- Patient may develop a expected post operative fever by day 2-3, this may not be accompanied with a elevation in WBC. if fever develops: Acetaminophen for fever. Albuterol nebulizer Tx every 12 hours for 24 hours to facilitate adequate lung expansion and prevent development of atelectasis. -Euglycemic: bloods sugars under 130mmol/L for optimal healing -Normotensive: Avoid events of hypertension. This helps to keep post operative healing intact and avoids destabilization of beneficial hemostatic coagulation. -Lumbar: -If patient is comfortable encouraged the patient to lay on their side to facilitate wound healing -Dressings island dressing check q (TID) every 8 hours replace PRN -Bowel management: -Colace 100mg bid -Diet: - patient tolerating within dietary limitations ( example: diabetic, Cardiac) -Incentive Spirometer: -10 x hour while awake, RN please educate and observe repeat demonstration, have IS at bedside POD #1 -X-rays: - none indicated at this time -Consults: -Physical Therapy evaluation, treatment recommendations, and discharge recommendations Call with questions Arin Valdez ACNP- Orthopaedic Spine Surgery nurse practitioner For Dr Gala Ge Patient was examined, chart reviewed, labs evaluated, and diagnostic studies and findings analyzed. Case was discussed with Dr. Stone Ge who formulated the plan of care. This medical document was created using an electronic medical record system with [employer] system. Although this document has been carefully reviewed, there might still be some phonetic and typographical errors. These areas are purely typographical due to imperfections of the software programs, and do not reflect any compromise in the patient's medical care. Plan discussed with Plan discussed with: Patient, Other (Catlym x [phone]) Visit Coding Surgery Date of Service if different f: Feb 28, 2025 Billing Provider: ORLANDO VALDEZ NP Surgery Visit Codes: NOT BILLABLE ORLANDO VALDEZ NP Mar 06, 2025 14:01
[2025-03-06 15:27] LABS: Hematocrit 27.0 % (36.0-46.0); Hemoglobin 8.9 g/dL (12.2-16.2); Mean Corpuscular Hemoglobin 28.8 pg (28.0-32.0); Mean Corpuscular Volume 87.3 fL (80.0-100.0); Nucleated Red Blood Cells % 0.3 %
[2025-03-07] VITALS (8 sets, daily range): BP systolic 137–152; BP diastolic 70–88; PULSE 74–92; RESP 16–18; TEMP 97.2–98.7; O2SAT 90–99
[2025-03-07] MEDS: PANTOPRAZOLE 40 MG TAB PO SCH (05:29)
[2025-03-07 06:28] LABS: Chloride 102 mmol/L (98-107); Potassium 3.5 mmol/L (3.5-5.1); Sodium 138 mmol/L (136-145)
[2025-03-07 06:29] LABS: Anion Gap 8 (5-15); Carbon Dioxide 28 mmol/L (20-31)
[2025-03-07 06:32] LABS: Calcium 8.5 mg/dL (8.7-10.4)
[2025-03-07 06:34] LABS: BUN/Creatinine Ratio 10.8 (10.0-20.0)
[2025-03-07 06:35] LABS: Magnesium 2.1 mg/dL (1.6-2.6)
[2025-03-07 06:37] LABS: Blood Urea Nitrogen 7 mg/dL (9-23); Glucose 130 mg/dL (74-106)
--- NOTE | 2025-03-07 10:42 | DVHPN2 ---
Progress Note Date Seen: Mar 07, 2025 Medical Necessity Reason Pt with a Central, PICC or Fol: No Objective vital signs Vital Sign Date Time Temp Pulse Resp B/P (MAP) Pulse Ox O2 Delivery O2 Flow Rate FiO2 03/07/25 09:10 97.2 84 17 139/71 (93) 94 97.2 03/06/25 20:00 Room Air* 0 21 Total Intake and Output 03/06/25 03/06/25 03/07/25 15:00 23:00 07:00 Intake Total 450 ml 878 ml 200 ml Balance 450 ml 878 ml 200 ml medications Current Medications Medications Dose Ordered Sig/Paul Route Start Time Stop Time Status Last Admin Dose Admin Ondansetron HCl 4 mg Q4HP PRN IV 02/28/25 14:30 Docusate Sodium 100 mg BID PO 02/28/25 22:00 03/07/25 10:29 100 MG Nitroglycerin 0.4 mg Q5MINP PRN SL 02/28/25 14:30 Morphine Sulfate 2 mg Q30M PRN IV 02/28/25 14:30 Ferrous Sulfate 325 mg BIDWM PO 03/01/25 18:00 03/07/25 10:30 325 MG Carisoprodol 350 mg TID PO 03/02/25 06:00 03/07/25 05:30 350 MG Duloxetine HCl 30 mg DAILY PO 03/03/25 10:00 03/07/25 10:29 30 MG Acetaminophen 650 mg Q6HP PRN PO 03/02/25 20:45 03/07/25 03:26 650 MG Morphine Sulfate 1 mg Q6HPRN PRN IV 03/05/25 07:30 Acetaminophen/ Hydrocodone Bitart 1 tab Q6HP PRN PO 03/05/25 08:30 03/07/25 05:30 1 TAB Pantoprazole Sodium 40 mg DAILY@0600 PO 03/07/25 06:00 03/07/25 05:29 40 MG laboratory and microbiology Laboratory Tests 03/07/25 05:35 03/06/25 15:04 Test 03/07/25 05:35 Range/Units Serum Glucose 130 H 74-106 mg/dL Microbiology Date/Time Source Procedure Growth Status 03/02/25 13:30 Voided Urine Urine Culture - Final Complete Problem List/Assessment/Plan Problem List/Assessment/Plan * Depression: cymbalta *previous history of diabetes Her A1c will be checked. * Anemia for which the patient is to be transfused. * Morbid obesity. * uti: culture, iv rocephin * Status post lumbar spine surgery for which she will receive pain medication and physical therapy. * fluid overload: dc ivf, iv lasix * Advance care planning. The patient is a full code-Time spent was 18 minutes. Plan discussed with: Patient My Orders My Orders Orders - ALVIN BLUM MD Procedure Category Date Status Time * Household Coordinator CONS 03/06/25 Transmitted Consult Pantoprazole Tablet PHA 03/07/25 In Process (Protonix Tablet) 06:00 Discontinue Tele LIZ 03/06/25 In Process 10:44 Transfer Orders XFER 03/06/25 Transmitted 10:44 Dietary Evaluation Review Comments: 1. Check pt's A11C 2. Encourage PO intake to meet 75% of her needs 3. Estimated nutrition needs used adj BW 61kg 4. Offer oral supplements glucerna 240 ml bid if PO intake <50% 5. Lan BID for healing Expected Outcomes/Goals: healed sugeical wounds, gradual wt loss Date of Service: Mar 07, 2025 Billing Provider: ALVIN BLUM MD Common Visit Codes: [id number] INP/OBS CARE(HIGH) ALVIN BLUM MD Mar 07, 2025 10:42
--- NOTE | 2025-03-07 16:51 | DVHPN2 ---
Progress Note - Surgical Date Seen: Mar 07, 2025 Post op day Post op day: 7 Subjective Patient reports: No new complaints, Feels better Review of Systems: HEENT:Normal, CVS:Normal, RESPIRATORY:Normal, GI:Normal, :Normal, NEURO:Normal (preoperative sympt have resolved) Objective Vital signs Vital Sign Date Time Temp Pulse Resp B/P (MAP) Pulse Ox O2 Delivery O2 Flow Rate FiO2 03/07/25 12:54 97.8 74 18 142/77 (98) 95 97.8 03/07/25 08:00 Room Air* 0 21 Total Intake and Output 03/06/25 03/06/25 03/07/25 15:00 23:00 07:00 Intake Total 450 ml 878 ml 200 ml Balance 450 ml 878 ml 200 ml Medications Current Medications Medications Dose Ordered Sig/Paul Route Start Time Stop Time Status Last Admin Dose Admin Ondansetron HCl 4 mg Q4HP PRN IV 02/28/25 14:30 Docusate Sodium 100 mg BID PO 02/28/25 22:00 03/07/25 10:29 100 MG Nitroglycerin 0.4 mg Q5MINP PRN SL 02/28/25 14:30 Morphine Sulfate 2 mg Q30M PRN IV 02/28/25 14:30 Ferrous Sulfate 325 mg BIDWM PO 03/01/25 18:00 03/07/25 10:30 325 MG Carisoprodol 350 mg TID PO 03/02/25 06:00 03/07/25 15:20 350 MG Duloxetine HCl 30 mg DAILY PO 03/03/25 10:00 03/07/25 10:29 30 MG Acetaminophen 650 mg Q6HP PRN PO 03/02/25 20:45 03/07/25 03:26 650 MG Morphine Sulfate 1 mg Q6HPRN PRN IV 03/05/25 07:30 Acetaminophen/ Hydrocodone Bitart 1 tab Q6HP PRN PO 03/05/25 08:30 03/07/25 15:25 1 TAB Pantoprazole Sodium 40 mg DAILY@0600 PO 03/07/25 06:00 03/07/25 05:29 40 MG Laboratory Laboratory Tests 03/07/25 05:35 03/06/25 15:04 Test 03/07/25 05:35 Range/Units Serum Glucose 130 H 74-106 mg/dL Microbiology Date/Time Source Procedure Growth Status 03/02/25 13:30 Voided Urine Urine Culture - Final Complete Examination: GENERAL:Normal, HEENT:Normal, NECK:Normal, LUNGS:Normal, CVS:Normal, ABDOMEN:Normal, MSK:Normal, SKIN:Normal (posterior lumbar wound is well approximated. ), NEURO:Normal, :Normal Problem List/Assessment/Plan Problems: (1) Acute post-operative pain (2) Muscle spasm of back Assessment and Plan POD # 7 Events of today PATIENT IS WAITING PLACEMENT FOR SNF/REHAB director of medical staff services is progressing very effectively with placement Patient is deconditioned and weaker than when she came in, she is healing well, and her preoperative symptoms have improved -Disposition: -rehab of SNF with PT services- determination is still in process -Discharge RX: soma and oral pain meds. -Follow up appointment: with Dr Ge on patient has scheduled appointment postoperative visit [phone] [id number] [facility] [address] Goyal [address] [place] [id number] -Pain: - IV pain meds post op day 1, with PO supplementation, goal is to progress weaning off IV medications and control pain with PO only. - P.O. analgesics:Tylenol 650MG (PAIN 1-3) Beatrice 10/325 mg (PAIN 4-6) - Muscle relaxers scheduled administration. This is a beneficial medications for the incisional pain as it is mostly related to muscle spasms.soma - Cepacol throat lozenges as needed for sore throat -DVT PPX: -Hold all chemical DVT/ blood thinners for 14 days postoperatively -use mechanical DVT PPX such as SCD's, ambulation -Activity: -not advancing with PT. encourage patient to continue -Sit at side of bed for meals -Goal: Ambulate independently and safely (may use assistive devices if needed) -Medical Therapy goals: -Afebrile- Patient may develop a expected post operative fever by day 2-3, this may not be accompanied with a elevation in WBC. if fever develops: Acetaminophen for fever. Albuterol nebulizer Tx every 12 hours for 24 hours to facilitate adequate lung expansion and prevent development of atelectasis. -Euglycemic: bloods sugars under 130mmol/L for optimal healing -Normotensive: Avoid events of hypertension. This helps to keep post operative healing intact and avoids destabilization of beneficial hemostatic coagulation. -Lumbar: -If patient is comfortable encouraged the patient to lay on their side to facilitate wound healing -Dressings island dressing check q (TID) every 8 hours replace PRN -Bowel management: -Colace 100mg bid -Diet: - patient tolerating within dietary limitations ( example: diabetic, Cardiac) -Incentive Spirometer: -10 x hour while awake, RN please educate and observe repeat demonstration, have IS at bedside POD #1 -X-rays: - none indicated at this time -Consults: -Physical Therapy evaluation, treatment recommendations, and discharge recommendations Call with questions Arin Valdez ACNP- Orthopaedic Spine Surgery nurse practitioner For Dr Gala Ge Patient was examined, chart reviewed, labs evaluated, and diagnostic studies and findings analyzed. Case was discussed with Dr. Stone Ge who formulated the plan of care. This medical document was created using an electronic medical record system with [employer] dictation system. Although this document has been carefully reviewed, there might still be some phonetic and typographical errors. These areas are purely typographical due to imperfections of the software programs, and do not reflect any compromise in the patient's medical care. Plan discussed with Plan discussed with: Patient Visit Coding Surgery Date of Service if different f: Feb 28, 2025 Billing Provider: ORLANDO VALDEZ NP Surgery Visit Codes: NOT BILLABLE ORLANDO VALDEZ NP Mar 07, 2025 16:51
[2025-03-08] VITALS (8 sets, daily range): BP systolic 103–166; BP diastolic 56–88; PULSE 71–91; RESP 16–20; TEMP 97.6–98.5; O2SAT 91–100
--- NOTE | 2025-03-08 10:38 | DVHDS2 ---
Discharge Summary Date of Admission Feb 28, 2025 at 14:21 Date of Discharge: Mar 08, 2025 Labs/Diagnostic Data: Laboratory Results Test 03/07/25 05:35 03/06/25 15:04 03/02/25 05:57 02/28/25 14:34 Sodium Level 138 mmol/L (136-145) Potassium Level 3.5 mmol/L (3.5-5.1) Chloride Level 102 mmol/L (98-107) Carbon Dioxide Level 28 mmol/L (20-31) Anion Gap 8 (5-15) Blood Urea Nitrogen 7 mg/dL (9-23) Creatinine 0.65 mg/dL (0.550-1.02) Glomerular Filtration Rate Calc 96 mL/min (>90) BUN/Creatinine Ratio 10.8 (10.0-20.0) Serum Glucose 130 mg/dL (74-106) Calcium Level 8.5 mg/dL (8.7-10.4) Magnesium Level 2.1 mg/dL (1.6-2.6) White Blood Count 9.9 10^3/uL (4.4-10.8) Red Blood Count 3.09 10^6/uL (4.0-5.20) Hemoglobin 8.9 g/dL (12.2-16.2) Hematocrit 27.0 % (36.0-46.0) Mean Corpuscular Volume 87.3 fL (80.0-100.0) Mean Corpuscular Hemoglobin 28.8 pg (28.0-32.0) Mean Corpuscular Hemoglobin Concent 33.0 g/dL (32.0-36.0) Red Cell Distribution Width 16.9 % (11.8-14.3) Platelet Count 218 10^3/uL (140-450) Mean Platelet Volume 9.6 fL (6.9-10.8) Neutrophils (%) (Auto) 75.4 % (37.0-80.0) Lymphocytes (%) (Auto) 12.0 % (10.0-50.0) Monocytes (%) (Auto) 8.2 % (0.0-12.0) Eosinophils (%) (Auto) 3.9 % (0.0-7.0) Basophils (%) (Auto) 0.5 % (0.0-2.0) Neutrophils # (Auto) 7.5 10 ^3/uL (1.6-8.6) Lymphocytes # (Auto) 1.2 10 ^3/uL (0.4-5.4) Monocytes # (Auto) 0.8 10 ^3/uL (0-1.3) Eosinophils # (Auto) 0.4 10 ^3/uL (0-0.8) Basophils # (Auto) 0 10 ^3/uL (0-0.2) Nucleated Red Blood Cells 0.3 % Hemoglobin A1c 6.2 % A1C (<5.7) POC Glucose 229 mg/dl (70-106) Test 02/27/25 10:08 Prothrombin Time 10.0 sec (9.3-11.8) Prothrombin Time INR 0.94 (0.9-1.15) Activated Partial Thromboplast Time 24.7 SEC (24.5-34.5) Urine Color Yellow (Yellow) Urine Clarity Ex.turbid (Clear) Urine pH 6.0 (5.0-9.0) Urine Specific [place] 1.025 (1.001-1.035) Urine Protein Trace (Negative) Urine Ketones Negative (Negative) Urine Blood 1+ /uL (Negative) Urine Nitrite Negative (Negative) Urine Bilirubin Negative (Negative) Urine Urobilinogen 3 mg/dL (Negative) Urine Leukocyte Esterase 3+ /uL (Negative) Urine RBC 17 /hpf (0 - 4) Urine Microscopic WBC 38 /HPF (0-5) Urine Squamous Epithelial Cells Mod /hpf (<5) Urine Bacteria Few /hpf (None Seen) Urine Mucus Few (None Seen) Urine Glucose 1+ mg/dL (Normal) Total Bilirubin 0.4 mg/dL (0.2-1.0) Aspartate Amino Transferase (AST) 29 U/L (13-40) Alanine Aminotransferase (ALT) 26 U/L (7-40) Alkaline Phosphatase 104 U/L (46-116) Total Protein 6.8 g/dL (5.7-8.2) Albumin 4.3 g/dL (3.2-4.8) Other Laboratory Tests 03/07/25 05:35 03/06/25 15:04 Brief Hx & Hospital Course: see dictated note Condition at Discharge: Fair Final Diagnosis/Problems List lumber surgery Discharge Disposition: [facility] Facility Discharge Instruct/Medications Diet: Cardiac 2g Na,low cholest Activity: No Restrictions, As Tolerated Follow Up/Referral: fu with pcp/dr Ge Medications: per mar Scheduled Ascorbic Acid (Vitamin C), 500 MG PO DAILY, (Reported) Benzonatate (Benzonatate), 100 MG PO PRN, (Reported) Duloxetine Hcl (Cymbalta), 20 MG PO DAILY, (Reported) Multiple Vitamin (Multi Vitamin), 1 TAB PO DAILY, (Reported) Naproxen (Naprosyn Tablet), 500 MG GT BID, (Reported) Miscellaneous Medications Curcuma Longa (Turmeric) Extra (Turmeric), 500 MG OR, (Reported) Discharge Statement: "Patient was advised to return to the ER or call 911 if any headaches, dizziness, shortness of breath, chest pain, abdominal pain, bleeding, fevers, or worsening of medical condition. Patient was counseled about treatment plan, medications, possible side effects, patientverbalized understanding. All questions were answered to the best of my ability. This discharge took greater then 30 minutes in planning, reviewing documentation, counseling the patient, and discussing with other team members." ASSESSMENT ASSESSMENT Assessment lumber surgery Date of Service: Mar 08, 2025 Billing Provider: ALVIN BLUM MD Common Visit Codes: 56180-APP/OBS DISCH DAY >30min ALVIN BLUM MD Mar 08, 2025 10:37
--- NOTE | 2025-03-08 10:49 | DVHDS ---
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 The patient also has history of depression and obesity. HOSPITAL COURSE: The patient was followed up by Dr. Ge. The patient was anemic for which she was given 1 unit of blood. Hemoglobin at the time of discharge is 8.9. The patient will now be transferred to a rehab facility for rehab as well as medications will be as per med reconciliation. She will follow up with Dr. Ge and her primary care. FINAL DIAGNOSES: * Depression. * Anemia, status post transfusion. * UTI. * Morbid obesity. * Status post lumbar spine surgery for DJD of the spine. Time spent in discharge planning and review of plan with the patient, nursing, and child welfare social worker was 38 minutes. MD MUSA Cabrera/MIKY TID: [id number] RECEIPT: [id number]
[2025-03-08] MEDS ORDERED: DOCU-265 PO (13:44)
[2025-03-08] MEDS ORDERED: CARI-579 PO ×2 (13:44→19:40)
[2025-03-08] MEDS ORDERED: HYDR-4902 PO ×2 (13:44→19:40)
[2025-03-08] MEDS: LACTULOSE 20Gm/30ML SOLN PO ONE (14:56)
[2025-03-08] MEDS: POLYETHYLENE GLYCOL 17 GM PWDR PO ONE (14:56)
[2025-03-08] MEDS: SENNA 8.6 MG TAB PO ONE (17:13)
--- NOTE | 2025-03-08 19:46 | DVHPN2 ---
Progress Note - Surgical Date Seen: Mar 08, 2025 Post op day Post op day: 8 Subjective Patient reports: No new complaints, Feels better Review of Systems: HEENT:Normal, CVS:Normal, RESPIRATORY:Normal, GI:Normal, :Normal, MSK:Normal, NEURO:Normal (pre op sympt improving) Objective Vital signs Vital Sign Date Time Temp Pulse Resp B/P (MAP) Pulse Ox O2 Delivery O2 Flow Rate FiO2 03/08/25 17:02 97.6 88 20 141/79 (99) 97 97.6 03/08/25 08:24 Room Air* 0 21 Total Intake and Output 03/07/25 03/07/25 03/08/25 15:00 23:00 07:00 Intake Total 225 ml 210 ml Output Total 700 ml Balance -475 ml 210 ml Medications Current Medications Medications Dose Ordered Sig/Paul Route Start Time Stop Time Status Last Admin Dose Admin Ondansetron HCl 4 mg Q4HP PRN IV 02/28/25 14:30 Docusate Sodium 100 mg BID PO 02/28/25 22:00 03/08/25 08:54 100 MG Nitroglycerin 0.4 mg Q5MINP PRN SL 02/28/25 14:30 Morphine Sulfate 2 mg Q30M PRN IV 02/28/25 14:30 Ferrous Sulfate 325 mg BIDWM PO 03/01/25 18:00 03/08/25 17:13 325 MG Carisoprodol 350 mg TID PO 03/02/25 06:00 03/08/25 14:56 350 MG Duloxetine HCl 30 mg DAILY PO 03/03/25 10:00 03/08/25 08:54 30 MG Acetaminophen 650 mg Q6HP PRN PO 03/02/25 20:45 03/08/25 03:14 650 MG Morphine Sulfate 1 mg Q6HPRN PRN IV 03/05/25 07:30 Acetaminophen/ Hydrocodone Bitart 1 tab Q6HP PRN PO 03/05/25 08:30 03/08/25 14:57 1 TAB Pantoprazole Sodium 40 mg DAILY@0600 PO 03/07/25 06:00 03/08/25 05:50 40 MG Laboratory Laboratory Tests 03/07/25 05:35 03/06/25 15:04 Test 03/07/25 05:35 Range/Units Serum Glucose 130 H 74-106 mg/dL Microbiology Date/Time Source Procedure Growth Status 03/02/25 13:30 Voided Urine Urine Culture - Final Complete Examination: GENERAL:Normal, HEENT:Normal, NECK:Normal, LUNGS:Normal, CVS:Normal, ABDOMEN:Normal, MSK:Abnormal (deconditioning), SKIN:Normal (lumbar site covered with island dressing CDI. drain sites dressed, no drainage noted), NEURO:Normal, :Normal Problem List/Assessment/Plan Problems: (1) Acute post-operative pain (2) Muscle spasm of back Assessment and Plan POD # 8 Events of today Unchanged from last visit PATIENT IS WAITING PLACEMENT FOR SNF/REHAB manager creative services is progressing very effectively with placement Patient is deconditioned and weaker than when she came in, she is healing well, and her preoperative symptoms have improved -Disposition: -rehab of SNF with PT services- determination is still in process -Discharge RX: soma and oral pain meds. SENT to patient preferred pharmacy on file -Follow up appointment: with Dr Ge on patient has scheduled appointment postoperative visit [phone] [id number] [facility] [address] Goyal [address] [place] [id number] -Pain: - IV pain meds post op day 1, with PO supplementation, goal is to progress weaning off IV medications and control pain with PO only. - P.O. analgesics:Tylenol 650MG (PAIN 1-3) Violet 10/325 mg (PAIN 4-6) - Muscle relaxers scheduled administration. This is a beneficial medications for the incisional pain as it is mostly related to muscle spasms.soma - Cepacol throat lozenges as needed for sore throat -DVT PPX: -Hold all chemical DVT/ blood thinners for 14 days postoperatively -use mechanical DVT PPX such as SCD's, ambulation -Activity: -slowly advancing with PT. encourage patient to continue -Sit at side of bed for meals -Goal: Ambulate independently and safely (may use assistive devices if needed) -Medical Therapy goals: -Afebrile- Patient may develop a expected post operative fever by day 2-3, this may not be accompanied with a elevation in WBC. if fever develops: Acetaminophen for fever. Albuterol nebulizer Tx every 12 hours for 24 hours to facilitate adequate lung expansion and prevent development of atelectasis. -Euglycemic: bloods sugars under 130mmol/L for optimal healing -Normotensive: Avoid events of hypertension. This helps to keep post operative healing intact and avoids destabilization of beneficial hemostatic coagulation. -Lumbar: -If patient is comfortable encouraged the patient to lay on their side to facilitate wound healing -Dressings island dressing check q (TID) every 8 hours replace PRN -Bowel management: -Colace 100mg bid -Diet: - patient tolerating within dietary limitations ( example: diabetic, Cardiac) -Incentive Spirometer: -10 x hour while awake, RN please educate and observe repeat demonstration, have IS at bedside POD #1 -X-rays: - none indicated at this time -Consults: -Physical Therapy evaluation, treatment recommendations, and discharge recommendations Call with questions Arni Valdez ACNP- Orthopaedic Spine Surgery nurse practitioner For Dr Gala Ge Patient was examined, chart reviewed, labs evaluated, and diagnostic studies and findings analyzed. Case was discussed with Dr. Stone Ge who formulated the plan of care. This medical document was created using an electronic medical record system with [employer] dictation system. Although this document has been carefully reviewed, there might still be some phonetic and typographical errors. These areas are purely typographical due to imperfections of the software programs, and do not reflect any compromise in the patient's medical care. Plan discussed with Plan discussed with: Patient Visit Coding Surgery Date of Service if different f: Feb 28, 2025 Billing Provider: ORLANDO VALDEZ NP Surgery Visit Codes: NOT BILLABLE ORLANDO VALDEZ NP Mar 08, 2025 19:46
[2025-03-09 05:00] VITALS: BP 138/69; PULSE 89; RESP 18; TEMP 98.5; O2SAT 100
[2025-03-09 09:00] VITALS: BP 150/85; PULSE 80; RESP 17; TEMP 97.8; O2SAT 98
--- NOTE | 2025-03-09 10:12 | DVHPN2 ---
Progress Note Date Seen: Mar 09, 2025 Medical Necessity Reason Pt with a Central, PICC or Fol: No Subjective Patient reports: No new complaints Review of Systems: HEENT:Normal, CVS:Normal, RESPIRATORY:Normal, GI:Normal, :Normal, MSK:Normal, NEURO:Normal Objective vital signs Vital Sign Date Time Temp Pulse Resp B/P (MAP) Pulse Ox O2 Delivery O2 Flow Rate FiO2 03/09/25 08:10 Room Air* 0 21 03/09/25 05:00 98.5 89 18 138/69 (92) 100 98.5 Total Intake and Output 03/08/25 03/08/25 03/09/25 15:00 23:00 07:00 Intake Total 825 ml 200 ml Balance 825 ml 200 ml medications Current Medications Medications Dose Ordered Sig/Paul Route Start Time Stop Time Status Last Admin Dose Admin Ondansetron HCl 4 mg Q4HP PRN IV 02/28/25 14:30 Docusate Sodium 100 mg BID PO 02/28/25 22:00 03/09/25 09:39 100 MG Nitroglycerin 0.4 mg Q5MINP PRN SL 02/28/25 14:30 Morphine Sulfate 2 mg Q30M PRN IV 02/28/25 14:30 Ferrous Sulfate 325 mg BIDWM PO 03/01/25 18:00 03/09/25 08:49 325 MG Carisoprodol 350 mg TID PO 03/02/25 06:00 03/09/25 05:08 350 MG Duloxetine HCl 30 mg DAILY PO 03/03/25 10:00 03/09/25 09:39 30 MG Acetaminophen 650 mg Q6HP PRN PO 03/02/25 20:45 03/08/25 20:57 650 MG Morphine Sulfate 1 mg Q6HPRN PRN IV 03/05/25 07:30 Acetaminophen/ Hydrocodone Bitart 1 tab Q6HP PRN PO 03/05/25 08:30 03/09/25 08:50 1 TAB Pantoprazole Sodium 40 mg DAILY@0600 PO 03/07/25 06:00 03/09/25 05:08 40 MG Examination: GENERAL:Normal, HEENT:Normal, NECK:Normal, LUNGS:Normal, CVS:Normal, ABDOMEN:Normal, MSK:Normal, MSK:Abnormal (lumber dressing), SKIN:Normal, NEURO:Normal, :Normal laboratory and microbiology Laboratory Tests 03/07/25 05:35 03/06/25 15:04 Test 03/07/25 05:35 Range/Units Serum Glucose 130 H 74-106 mg/dL Microbiology Date/Time Source Procedure Growth Status 03/02/25 13:30 Voided Urine Urine Culture - Final Complete Problem List/Assessment/Plan Problem List/Assessment/Plan * Depression: cymbalta *previous history of diabetes Her A1c will be checked. * Anemia for which the patient is to be transfused. * Morbid obesity. * uti: culture, iv rocephin * Status post lumbar spine surgery for which she will receive pain medication and physical therapy. * fluid overload: dc ivf, iv lasix * constipation: bowel regimen * Advance care planning. The patient is a full code-Time spent was 18 minutes. Plan discussed with: Patient My Orders My Orders Orders - ALVIN BLUM MD Procedure Category Date Status Time * Yeast Culture Operator CONS 03/08/25 Transmitted Consult Discharge DISCHARGE 03/08/25 Transmitted 10:35 Fleet Enema Adult PHA 03/09/25 Verified 10:15 Lactulose Oral PHA 03/09/25 Verified 10:15 Dietary Evaluation Review Comments: 1. Check pt's A11C 2. Encourage PO intake to meet 75% of her needs 3. Estimated nutrition needs used adj BW 61kg 4. Offer oral supplements glucerna 240 ml bid if PO intake <50% 5. Lan BID for healing Expected Outcomes/Goals: healed sugeical wounds, gradual wt loss Date of Service: Mar 09, 2025 Billing Provider: ALVIN BLUM MD Common Visit Codes: [id number] INP/OBS CARE(HIGH) ALVIN BLUM MD Mar 09, 2025 10:12
[2025-03-09] MEDS: LACTULOSE 20Gm/30ML SOLN PO ONE (11:27)
[2025-03-09] MEDS: FLEET ENEMA(ADULT) 135 ML PR ONE (11:33)
[2025-03-09 13:00] VITALS: BP 130/69; PULSE 89; RESP 18; TEMP 97.6; O2SAT 99
[2025-03-09] MEDS: MORPHINE SULFATE INJ 2 MG/ml SYRG IV PRN (13:09)
[2025-03-09 13:39] VITALS: BP 134/75; PULSE 91; RESP 18
== END 2025-03-09 18:00 | DRG 448 ==
LOC: SUR 06:24 → OVERFLOW 14:21 → TELE-CENTR 16:38
PROVIDERS: ADMIT Internal Medicine; ATTEND Internal Medicine
PROC: 01NB0ZZ Release Lumbar Nerve, Open Approach (ICD-10-PCS; 2025-02-28)
PROC: 00NY0ZZ Release Lumbar Spinal Cord, Open Approach (ICD-10-PCS; 2025-02-28)
PROC: 4A11X4G Monitoring of Peripheral Nervous Electrical Activity, Intraoperative, External Approach (ICD-10-PCS; 2025-02-28)
PROC: 0SG10K1 Fusion of 2 or more Lumbar Vertebral Joints with Nonautologous Tissue Substitute, Posterior Approach, Posterior Column, Open Approach (ICD-10-PCS; principal; 2025-02-28 07:53)
PROC: 30233N1 Transfusion of Nonautologous Red Blood Cells into Peripheral Vein, Percutaneous Approach (ICD-10-PCS; 2025-03-01)
DX: M48.062 Spinal stenosis, lumbar region with neurogenic claudication (principal); N39.0 Urinary tract infection, site not specified; E66.01 Morbid (severe) obesity due to excess calories; D64.9 Anemia, unspecified; E11.9 Type 2 diabetes mellitus without complications; Z68.39 Body mass index [BMI] 39.0-39.9, adult; F32.A Depression, unspecified; M47.896 Other spondylosis, lumbar region; E87.70 Fluid overload, unspecified; K59.00 Constipation, unspecified; M43.16 Spondylolisthesis, lumbar region; M51.16 Intervertebral disc disorders with radiculopathy, lumbar region; Z83.3 Family history of diabetes mellitus; Z82.49 Family history of ischemic heart disease and other diseases of the circulatory system; Z83.42 Family history of familial hypercholesterolemia; Z79.899 Other long term (current) drug therapy; G89.18 Other acute postprocedural pain
CPT/HCPCS: 36415; 72100; 76000; 80048; 80053; 81001; 82962; 83036; 83735; 85014; 85018; 85025; 85610; 85730; 86850; 86870; 86900; 86901; 86902; 86922; 87086; 97110; 97116; 97163; 97530; A4344; G0378; J0131; J0330; J1956; J2250; J2405; J2470; J2704; J7042

== ENCOUNTER 2025-06-13 12:01 | Inpatient (IN) | payer BC ==
[2025-06-13] VITALS (9 sets, daily range): BP systolic 119–136; BP diastolic 58–69; PULSE 76–109; RESP 17–24; TEMP 97.6–98.7; O2SAT 96–100
[~2025-06-13] VITALS: Ht 154.9 cm; Wt 87.3 kg
[~2025-06-13 12:01] MED LIST changes: +CARI-579 PO; +DOCU-265 PO; +HYDR-4902 PO
--- NOTE | 2025-06-13 12:27 | ED.PDOC ---
SOB-HPI HPI Comments 70 y/o F, presents to the ED for CC of shortness of breath. 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 Patient further reports symptoms, of substernal "tight" chest discomfort. Upon arrival to the ED, patient is stating at 94% on R.A and was placed on supplementary oxygen for comfort. Patient denies fever, chills, palpitations, tingling, or numbness. No other symptoms or modifying factors are present at this time. Chief Complaint: Shortness of Breath Time Seen by MD: 12:20 Primary Care Provider: FRANK Perez notes: Nurses Notes, Medications, Allergies Information Source: Patient Mode of Arrival: Ambulatory Severity: Moderate Timing: Hours Duration: Since onset Context: At Rest PE Risk Factors: None History of: None Prehospital treatment: None Modifying Factors: Nothing Associated Signs and Symptoms: Cough Quality: Tightness Radiation: No Radiation Location: Substernal Past Medical History PAST MEDICAL HISTORY: Asthma, DM, HTN CONCESSION SUPERVISOR History: No Pertinent CONCESSION SUPERVISOR History Constitutional: reports: weakness; denies: chills, diaphoresis, fatigue, fever, malaise, sweats, others EENTM: denies: blurred vision, double vision, ear bleeding, ear discharge, ear drainage, ear pain, ear ringing, eye pain, eye redness, hearing loss, mouth pain, mouth swelling, nasal discharge, nose bleeding, nose congestion, nose pain, photophobia, tearing, throat pain, throat swelling, voice changes, others Respiratory: reports: cough, shortness of breath; denies: hemoptysis, orthopnea, SOB at rest, SOB with excertion, stridor, wheezing, others Cardiovascular: reports: chest pain; denies: dizzy spells, diaphoresis, Dyspnea on exertion, edema, irregular heart beat, left arm pain, lightheadedness, palpitations, PND, syncope, others Gastrointestinal: denies: abdomen distended, abdominal pain, blood streaked bowels, constipated, diarrhea, dysphagia, difficulty swallowing, hematemesis, melena, nausea, poor appetite, poor fluid intake, rectal bleeding, rectal pain, vomiting, others Genitourinary: denies: abnormal vagina bleeding, burning, dyspareunia, dysuria, flank pain, frequency, hematuria, incontinence, pain, , vagina discharge, urgency, others Neurological: denies: dizziness, fainting, headache, left sided numbness, left sided weakness, numbness, paresthesia, pre-existing deficit, right sided numbness, right sided weakness, seizure, speech problems, tingling, tremors, weakness, others Musculoskeletal: denies: back pain, gout, joint pain, joint swelling, muscle pain, muscle stiffness, neck pain, others Integumetry: denies: bruises, change in color, change in hair/nails, dryness, laceration, lesions, lumps, rash, wounds, others Allergic/Immunocompromised: denies: Difficulty Healing, Frequent Infections, Hives, Itching, others Hematologic/Lymphatic: denies: anemia, blood clots, easy bleeding, easy bruising, swollen glands, others Endocrine: denies: excessive hunger, excessive sweating, excessive thirst, excessive urination, flushing, intolerance to cold, intolerance to heat, unexplained weight gain, unexplained weight loss, others Psychiatric: denies: anxiety, bipolar disorder, depression, hopeless, panic disorder, schizophrenia, sleepless, suicidal, others All Other Systems: Reviewed and Negative EKG EKG : Pulse Rate (adult): 76 [place]: Normal Cardiac Rhythm: NSR Block: None Hypertrophy: None ST: Normal Was a procedure done? Was a procedure done?: No Differential Dx Differential Diagnosis: Bronchitis, Pneumonia, Sinusitis, Pharyngitis, URI, Other (COVID-19, INFLUENZA) X-Ray, Labs, Meds, VS Vital Signs Date Time Temp Pulse Resp B/P (MAP) Pulse Ox O2 Delivery O2 Flow Rate FiO2 06/13/25 13:07 83 06/13/25 12:58 14 97 Nasal Cannula* 2 28 06/13/25 12:50 106 24 98 Nasal Cannula* 2 28 06/13/25 12:50 98.1 106 24 94/45 (61) 98 98.1 06/13/25 12:27 76 06/13/25 12:03 98.1 83 18 147/81 93 98.1 Lab Test 06/13/25 13:40 Range/Units White Blood Count Pending Red Blood Count Pending Hemoglobin Pending Hematocrit Pending Mean Corpuscular Volume Pending Mean Corpuscular Hemoglobin Pending Mean Corpuscular Hemoglobin Concent Pending Red Cell Distribution Width Pending Platelet Count Pending Mean Platelet Volume Pending Neutrophils (%) (Auto) Pending Lymphocytes (%) (Auto) Pending Monocytes (%) (Auto) Pending Basophils (%) (Auto) Pending Neutrophils # (Auto) Pending Lymphocytes # (Auto) Pending Monocytes # (Auto) Pending Sodium Level Pending Potassium Level Pending Chloride Level Pending Carbon Dioxide Level Pending Anion Gap Pending Blood Urea Nitrogen Pending Creatinine Pending Glomerular Filtration Rate Calc Pending BUN/Creatinine Ratio Pending Serum Glucose Pending Calcium Level Pending Troponin I High Sensitivity Pending B-Type Natriuretic Peptide Pending Current Medications Medications (Trade) Dose Ordered Sig/Paul Route Start Time Stop Time Status Last Admin Methylprednisolone Sodium Succinate (Solu Medrol) 125 mg ONCE ONCE IV 06/13/25 12:30 06/13/25 12:31 DC 06/13/25 12:50 Ipratropium [place] (Atrovent Medneb) 1 mg ONCE ONCE N 06/13/25 12:30 06/13/25 12:31 DC 06/13/25 12:53 Albuterol (Ventolin Medneb) 20 mg ONCE ONCE N 06/13/25 12:30 06/13/25 12:31 DC 06/13/25 12:53 Time of 1ST Reevaluation: 12:50 Reevaluation 1ST: Unchanged Patient Education/Counseling: Diagnosis, Treatment Family Education/Counseling: Diagnosis, Treatment SEPSIS Sepsis Screen Date sepsis recognized/suspect: Jun 13, 2025 Time Sepsis recognized/suspect: 1205 Recent Procedure: No On Antibiotic Therapy: No Respiratory Rate >20: No Heart Rate >90: No Temp<36 C (96.8 F) or >38.3 C: No SBP <90 or MAP <65 mmHG: No New Acute Mental Status Change: No Is the patient on CPAP, BIPAP,: No Physician Orders Electrocardigram (06/13/25 12:13) Troponin-I Hs (06/13/25 12:20) Complete Blood Count (06/13/25 12:20) B-Type Natriuretic Peptide (06/13/25 12:20) Urinalysis (06/13/25 12:20) Med Neb Initial Treatment (06/13/25 12:20) Chest Portable (06/13/25 12:20) Heplock Iv (06/13/25 12:20) Pulse Oximetry (06/13/25 12:20) Retail And Restaurant Associate (06/13/25 12:20) Blood Pressure (06/13/25 12:20) Basic Metabolic Panel (06/13/25 12:20) Rapid Influenza A&B (06/13/25 12:20) Covid19 Antigen Amaya (06/13/25 ) Troponin-I Hs (06/13/25 13:20) Troponin-I Hs (06/13/25 15:20) Vital Signs Date Time Temp Pulse Resp B/P (MAP) Pulse Ox O2 Delivery O2 Flow Rate FiO2 06/13/25 13:07 83 06/13/25 12:58 14 97 Nasal Cannula* 2 28 06/13/25 12:50 106 24 98 Nasal Cannula* 2 28 06/13/25 12:50 98.1 106 24 94/45 (61) 98 98.1 06/13/25 12:27 76 06/13/25 12:03 98.1 83 18 147/81 93 98.1 Laboratory Tests Test 06/13/25 13:40 White Blood Count Pending Medications Medications Dose Ordered Sig/Paul Route Start Time Stop Time Status Last Admin Dose Admin Albuterol 20 mg ONCE ONCE [facility] 06/13/25 12:30 06/13/25 12:31 DC 06/13/25 12:53 Ipratropium [place] 1 mg ONCE ONCE N 06/13/25 12:30 06/13/25 12:31 DC 06/13/25 12:53 Methylprednisolone Sodium Succinate 125 mg ONCE ONCE IV 06/13/25 12:30 06/13/25 12:31 DC 06/13/25 12:50 Critical Care Note Critical Care Time?: No Stability Stability form required: No Heart Score Heart Score: Heart Score Response (Comments) Value History N/A 0 EKG N/A 0 Age N/A 0 Risk Factors N/A 0 Troponin N/A 0 Total 0 I personally scribed for JAIRO PATINO RESIDENT ([email or web address]) on 06/13/25 at 12:27. Electronically submitted by Patricia Wilburn ([email or web address]). I personally scribed for JAIRO PATINO RESIDENT ([email or web address]) on 06/13/25 at 13:55. Electronically submitted by Patricia Wilburn ([email or web address]). JAIRO PATINO RESIDENT Jun 13, 2025 12:27
[2025-06-13] MEDS: methylPREDNISolone SOD SUCC 125 MG/2 ML VL IV ONE (12:50)
[2025-06-13] MEDS: ALBUTEROL SULF 2.5 MG/0.5ML(0.5%) NEB SOLN HHN ONE (12:53)
[2025-06-13] MEDS: IPRATROPIUM BROM 0.5 MG/2.5ML INH SOL HHN ONE (12:53)
--- NOTE | 2025-06-13 13:07 | DVH ---
CHEST RADIOGRAPH Indication: sob Technique: Single frontal view of the chest was obtained Comparison: XY CHEST TWO VIEWS ROUTINE on DOS: 02/27/25 FINDINGS: Lines and Tubes: None Lungs: Innumerable calcified nodules throughout the lungs. No focal consolidation. Pleura: No effusion. No pneumothorax. Cardiomediastinal contours: Unremarkable Bones: No acute osseous abnormality. IMPRESSION: 1. Innumerable calcified nodules throughout the lungs compatible with calcified granulomas. 2. No focal consolidation.
[2025-06-13 13:55] LABS: Hematocrit 37.0 % (36.0-46.0); Hemoglobin 11.7 g/dL (12.2-16.2); Mean Corpuscular Hemoglobin 26.1 pg (28.0-32.0); Mean Corpuscular Volume 82.7 fL (80.0-100.0); Nucleated Red Blood Cells % 0.0 %
--- NOTE | 2025-06-13 13:57 | ED.PDOC ---
SOB-HPI HPI Comments 70 y/o F, presents to the ED for CC of shortness of breath. 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 Patient further reports symptoms, of substernal "tight" chest discomfort. Upon arrival to the ED, patient is stating at 94% on R.A and was placed on supplementary oxygen for comfort. Patient denies fever, chills, palpitations, tingling, or numbness. No other symptoms or modifying factors are present at this time. 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 METAL SPRAYER MACHINED PARTS History Social History Lives In: Home Constitutional: denies: chills, diaphoresis, fatigue, fever, malaise, sweats, weakness, others EENTM: denies: blurred vision, double vision, ear bleeding, ear discharge, ear drainage, ear pain, ear ringing, eye pain, eye redness, hearing loss, mouth pain, mouth swelling, nasal discharge, nose bleeding, nose congestion, nose pain, photophobia, tearing, throat pain, throat swelling, voice changes, others Respiratory: reports: cough, shortness of breath; denies: hemoptysis, orthopnea, SOB at rest, SOB with excertion, stridor, wheezing, others Cardiovascular: denies: chest pain, dizzy spells, diaphoresis, Dyspnea on exertion, edema, irregular heart beat, left arm pain, lightheadedness, palpitations, PND, syncope, others Gastrointestinal: denies: abdomen distended, abdominal pain, blood streaked bowels, constipated, diarrhea, dysphagia, difficulty swallowing, hematemesis, melena, nausea, poor appetite, poor fluid intake, rectal bleeding, rectal pain, vomiting, others Genitourinary: denies: abnormal vagina bleeding, burning, dyspareunia, dysuria, flank pain, frequency, hematuria, incontinence, pain, , vagina discharge, urgency, others Neurological: denies: dizziness, fainting, headache, left sided numbness, left sided weakness, numbness, paresthesia, pre-existing deficit, right sided numbness, right sided weakness, seizure, speech problems, tingling, tremors, weakness, others Musculoskeletal: denies: back pain, gout, joint pain, joint swelling, muscle pain, muscle stiffness, neck pain, others Integumetry: denies: bruises, change in color, change in hair/nails, dryness, laceration, lesions, lumps, rash, wounds, others Allergic/Immunocompromised: denies: Difficulty Healing, Frequent Infections, Hi ves, Itching, others Hematologic/Lymphatic: denies: anemia, blood clots, easy bleeding, easy bruising, swollen glands, others Endocrine: denies: excessive hunger, excessive sweating, excessive thirst, excessive urination, flushing, intolerance to cold, intolerance to heat, unexplained weight gain, unexplained weight loss, others Psychiatric: denies: anxiety, bipolar disorder, depression, hopeless, panic disorder, schizophrenia, sleepless, suicidal, others All Other Systems: Reviewed and Negative Physical Exam General Appearance: Moderate Distress HEENT: Normal ENT Inspection, Pharynx Normal, TMs Normal Neck: Full Range of Motion, Non-Tender, Normal, Normal Inspection Respiratory: Chest Non-Tender, Decreased Breath Sounds, No Accessory Muscle Use, Respiratory Distress, Wheezing Cardiovascular: No Edema, No JVD, No Murmur, No Gallop, Normal Peripheral Pulses, Regular Rate/Rhythm Breast Exam: Deferred Gastrointestinal: No Organomegaly, Non Tender, No Pulsatile Mass, Normal Bowel Sounds, Soft Genitalia: Deferred Pelvic: Deferred Rectal: Deferred Extremities: No calf tenderness, Normal capillary refill, Normal inspection, Normal range of motion, Non-tender, No pedal edema Musculoskeletal : Apperance: Normal Neurologic: Alert, sales analytics manager II-XII nml as Tested, Motor Weakness, Normal Affect, Normal Mood, No Sensory Deficits Cerebellar Function: Normal Reflexes: Normal Skin: Dry, Normal Color, Warm Lymphatic: No Adenopathy EKG EKG : Pulse Rate (adult): 76 [place]: Normal Block: None ST: Nonsp Was a procedure done? Was a procedure done?: No Differential Dx Differential Diagnosis: Bronchitis, Pneumothorax, Sinusitis, Pharyngitis, URI, Other (COVID-19, INFLUENZA) X-Ray, Labs, Meds, VS Vital Signs Date Time Temp Pulse Resp B/P (MAP) Pulse Ox O2 Delivery O2 Flow Rate FiO2 06/13/25 13:07 83 06/13/25 12:58 14 97 Nasal Cannula* 2 28 06/13/25 12:50 106 24 98 Nasal Cannula* 2 28 06/13/25 12:50 98.1 106 24 94/45 (61) 98 98.1 06/13/25 12:27 76 06/13/25 12:03 98.1 83 18 147/81 93 98.1 Lab Test 06/13/25 14:39 06/13/25 13:40 Range/Units Troponin I High Sensitivity Pending 4 </=34 ng/L White Blood Count 11.6 H 4.4-10.8 10^3/uL Red Blood Count 4.48 4.0-5.20 10^6/uL Hemoglobin 11.7 L 12.2-16.2 g/dL Hematocrit 37.0 36.0-46.0 % Mean Corpuscular Volume 82.7 80.0-100.0 fL Mean Corpuscular Hemoglobin 26.1 L 28.0-32.0 pg Mean Corpuscular Hemoglobin Concent 31.6 L 32.0-36.0 g/dL Red Cell Distribution Width 17.0 H 11.8-14.3 % Platelet Count 173 140-450 10^3/uL Mean Platelet Volume 10.6 6.9-10.8 fL Neutrophils (%) (Auto) 83.6 H 37.0-80.0 % Lymphocytes (%) (Auto) 13.0 10.0-50.0 % Monocytes (%) (Auto) 2.8 0.0-12.0 % Eosinophils (%) (Auto) 0.4 0.0-7.0 % Basophils (%) (Auto) 0.2 0.0-2.0 % Neutrophils # (Auto) 9.7 H 1.6-8.6 10 ^3/uL Lymphocytes # (Auto) 1.5 0.4-5.4 10 ^3/uL Monocytes # (Auto) 0.3 0-1.3 10 ^3/uL Eosinophils # (Auto) 0 0-0.8 10 ^3/uL Basophils # (Auto) 0 0-0.2 10 ^3/uL Nucleated Red Blood Cells 0.0 % Sodium Level 143 136-145 mmol/L Potassium Level 3.7 3.5-5.1 mmol/L Chloride Level 106 98-107 mmol/L Carbon Dioxide Level 22 20-31 mmol/L Anion Gap 15 5-15 Blood Urea Nitrogen 16 9-23 mg/dL Creatinine 0.83 0.550-1.02 mg/dL Glomerular Filtration Rate Calc 77 >90 mL/min BUN/Creatinine Ratio 19.3 10.0-20.0 Serum Glucose 116 H 74-106 mg/dL Calcium Level 9.1 8.7-10.4 mg/dL B-Type Natriuretic Peptide 35.93 0-100 pg/mL Current Medications Medications (Trade) Dose Ordered Sig/Paul Route Start Time Stop Time Status Last Admin Methylprednisolone Sodium Succinate (Solu Medrol) 125 mg ONCE ONCE IV 06/13/25 12:30 06/13/25 12:31 DC 06/13/25 12:50 Ipratropium Rinard (Atrovent Medneb) 1 mg ONCE ONCE N 06/13/25 12:30 06/13/25 12:31 DC 06/13/25 12:53 Albuterol (Ventolin Medneb) 20 mg ONCE ONCE N 06/13/25 12:30 06/13/25 12:31 DC 06/13/25 12:53 CHEST XY: IMPRESSION: 1. Innumerable calcified nodules throughout the lungs compatible with calcified granulomas. 2. No focal consolidation. IV Hep-Lock was established. The patient's BNP is within normal limits The patient was given Solu-Medrol 125 mg IV push The patient was given a breathing treatment of albuterol and Atrovent. The CBC shows an elevated white blood cell count 11.6 The 1st troponin level is negative The chemistry panel is within normal limits At this time, the patient is being admitted to the hospitalist The COVID test is pending The influenza test is pending Medical decision making was made by the fact that the patient is still having respiratory failure requiring supplemental oxygen. The patient is being admitted Images Reviewed?: Images reviewed and evaluated by me Time of 1ST Reevaluation: 13:15 Reevaluation 1ST: Unchanged Patient Education/Counseling: Diagnosis, Treatment, Prognosis Family Education/Counseling: Diagnosis, Treatment, Prognosis SEPSIS Sepsis Screen Date sepsis recognized/suspect: Jun 13, 2025 Time Sepsis recognized/suspect: 1250 Recent Procedure: No On Antibiotic Therapy: No Respiratory Rate >20: Yes Heart Rate >90: Yes Temp<36 C (96.8 F) or >38.3 C: No SBP <90 or MAP <65 mmHG: No New Acute Mental Status Change: No Is the patient on CPAP, BIPAP,: No Physician Orders Electrocardigram (06/13/25 12:13) Urinalysis (06/13/25 12:20) Med Neb Initial Treatment (06/13/25 12:20) Chest Portable (06/13/25 12:20) Heplock Iv (06/13/25 12:20) Pulse Oximetry (06/13/25 12:20) Engineering Administrator (06/13/25 12:20) Blood Pressure (06/13/25 12:20) Rapid Influenza A&B (06/13/25 12:20) Covid19 Antigen Amaya (06/13/25 ) Troponin-I Hs (06/13/25 13:20) Troponin-I Hs (06/13/25 15:20) Vital Signs Date Time Temp Pulse Resp B/P (MAP) Pulse Ox O2 Delivery O2 Flow Rate FiO2 06/13/25 13:07 83 06/13/25 12:58 14 97 Nasal Cannula* 2 28 06/13/25 12:50 106 24 98 Nasal Cannula* 2 28 06/13/25 12:50 98.1 106 24 94/45 (61) 98 98.1 06/13/25 12:27 76 06/13/25 12:03 98.1 83 18 147/81 93 98.1 Laboratory Tests Test 06/13/25 13:40 White Blood Count 11.6 10^3/uL (4.4-10.8) H Medications Medications Dose Ordered Sig/Paul Route Start Time Stop Time Status Last Admin Dose Admin Albuterol 20 mg ONCE ONCE N 06/13/25 12:30 06/13/25 12:31 DC 06/13/25 12:53 Ipratropium Rinard 1 mg ONCE ONCE N 06/13/25 12:30 06/13/25 12:31 DC 06/13/25 12:53 Methylprednisolone Sodium Succinate 125 mg ONCE ONCE IV 06/13/25 12:30 06/13/25 12:31 DC 06/13/25 12:50 Departure 1 Departure Time of Disposition: 12:50 Impression: Primary Impression: Acute respiratory failure Qualified Codes: J96.01 - Acute respiratory failure with hypoxia Additional Impression: COPD exacerbation Disposition: ADMITTED INPATIENT Admit to: Tele Condition: Fair Critical Care Note Critical Care Time?: Yes (45 min-critical care time only) Stability Stability form required: Yes Unstable for transfer: Telemetry monitoring (Telemetry monitoring required), ED Physician Assesment (Clinical assesment) Heart Score Heart Score: Heart Score Response (Comments) Value History N/A 0 EKG N/A 0 Age N/A 0 Risk Factors N/A 0 Troponin N/A 0 Total 0 I personally scribed for PRICILLA KOLB MD ([email or web address]) on 06/13/25 at 13:57. Electronically submitted by Patricia Wilburn ([email or web address]). I personally scribed for PRICILLA KOLB MD ([email or web address]) on 06/13/25 at 13:58. Electronically submitted by Patricia Wilburn ([email or web address]). PRICILLA KOLB MD Jun 13, 2025 13:57
[2025-06-13 14:03] LABS: Chloride 106 mmol/L (98-107); Potassium 3.7 mmol/L (3.5-5.1); Sodium 143 mmol/L (136-145)
[2025-06-13 14:04] LABS: Anion Gap 15 (5-15); Carbon Dioxide 22 mmol/L (20-31)
[2025-06-13 14:05] LABS: Calcium 9.1 mg/dL (8.7-10.4)
[2025-06-13 14:09] LABS: BUN/Creatinine Ratio 19.3 (10.0-20.0); Blood Urea Nitrogen 16 mg/dL (9-23)
[2025-06-13 14:10] LABS: Glucose 116 mg/dL (74-106)
--- NOTE | 2025-06-13 15:21 | DVHHPRES ---
History of Present Illness Resident Creating Document: DERICK ARELLANO RESIDENT History of Present Illness This is a 70-year-old female with past medical history of hypertension, bronchial asthma, type 2 diabetes mellitus, status post bilateral knee replacement and back surgery due to disc prolapse presented to the ED with a chi ef complaint of sudden onset of shortness of breath, chest tightness 1 hour ago before ED visit. According to the patient she went for physical therapy today and then [place] suddenly she felt chest tightness, shortness of breath and cough that prompted this visit. The patient is also complaining of intermittent urinary and fecal incontinence with numbness in the bottom and following with Dr. Webster for these symptoms. She denies fever, chills, productive cough, recent traveling, any recent positive contact history, nausea, vomiting, abdominal pain, or any altered bowel habit. PCP: Juancho Rodney Cardiovascular: HTN Pulmonary: Asthma Endocrine: Diabetes Past Medical History Hypertension, type 2 diabetes mellitus, bronchial asthma Past Surgical History: Total knee replacement Past Surgical History Bilateral total knee replacement, spine surgery Family History Nothing contributory Past Social History Lives with boyfriend Nonsmoker, social drinker and never tried any drugs Review of Systems Constitutional: No: Fever, Chills, Sweats, Weakness, Malaise, Other Eyes: No: Pain, Vision change, Conjunctivae inflammation, Eyelid inflammation, Other, Redness ENT: No: Ear pain, Ear discharge, Nose pain, Nose discharge, Nose congestion, Mouth pain, Mouth swelling, Throat pain, Throat swelling, Other Respiratory: Shortness of breath; No: Cough, Dry, SOB with excertion, Wheezing, Hemoptysis, Pleuritic Pain, Sputum, Wheezing, Other Cardiovascular: Chest Pain; No: Palpitations, Orthopnea, Paroxysmal Noc. Dyspnea, Edema, Lt Headedness, Other Gastrointestinal: No: Nausea, Vomiting, Abdominal Pain, Diarrhea, Constipation, Melena, Hematochezia, Other Genitourinary: No Dysuria, No Frequency, No Incontinence, No Hematuria, No Retention, No Other Musculoskeletal: No: other, neck pain, shoulder pain, arm pain, back pain, hand pain, leg pain, foot pain Skin: No: Rash, Lesions, Jaundice, Bruising, Other Neurological: No: Weakness, Numbness, Incoordination, Change in speech, Confusion, Seizures, Other Allergies: Coded Allergies: NO KNOWN ALLERGIES (Unverified , 02/07/17) Medications Current Medications Medications Dose Ordered Sig/Paul Route Start Time Stop Time Status Last Admin Dose Admin Levalbuterol HCl 0.625 mg Q6HR NEB 06/13/25 18:00 UNV Ipratropium [place] 0.5 mg Q6HR NEB 06/13/25 18:00 UNV Exam Vital Signs Vital Signs Date Time Temp Pulse Resp B/P (MAP) Pulse Ox O2 Delivery O2 Flow Rate FiO2 06/13/25 14:58 76 06/13/25 14:00 98.1 26 119/58 (78) 96 98.1 06/13/25 12:58 Nasal Cannula* 2 28 Exam Physical examination: General Appearance: Alert, Oriented X3, Cooperative, mild respiratory distress and with nasal cannula 2 L HEENT: Atraumatic, PERRLA, EOMI, Mucous membrane moist/pink Respiratory: Clear to auscultation, Normal air movement Cardiovascular: Regular rate, Normal S1, Normal S2, No murmurs, no chest wall tenderness Abdominal: Normal bowel sounds, Soft, No tenderness, No hepatospenomegaly, No masses Extremities: No clubbing, No cyanosis, No edema, Normal pulses, No tenderness/swelling Skin: No rashes, No breakdown, No significant lesion Neuro: Normal speech, Strength at 5/5 X4 ext, Normal tone, Sensation intact, Cranial nerves 3-12 NL, Reflexes 2+ Psych/Mental Status: Mental status NL, Mood NL Labs/Xrays Labs Test 06/13/25 14:50 06/13/25 14:39 06/13/25 13:40 Range/Units Troponin I High Sensitivity 3 L </=34 ng/L White Blood Count 11.6 H 4.4-10.8 10^3/uL Red Blood Count 4.48 4.0-5.20 10^6/uL Hemoglobin 11.7 L 12.2-16.2 g/dL Hematocrit 37.0 36.0-46.0 % Mean Corpuscular Volume 82.7 80.0-100.0 fL Mean Corpuscular Hemoglobin 26.1 L 28.0-32.0 pg Mean Corpuscular Hemoglobin Concent 31.6 L 32.0-36.0 g/dL Red Cell Distribution Width 17.0 H 11.8-14.3 % Platelet Count 173 140-450 10^3/uL Mean Platelet Volume 10.6 6.9-10.8 fL Neutrophils (%) (Auto) 83.6 H 37.0-80.0 % Lymphocytes (%) (Auto) 13.0 10.0-50.0 % Monocytes (%) (Auto) 2.8 0.0-12.0 % Eosinophils (%) (Auto) 0.4 0.0-7.0 % Basophils (%) (Auto) 0.2 0.0-2.0 % Neutrophils # (Auto) 9.7 H 1.6-8.6 10 ^3/uL Lymphocytes # (Auto) 1.5 0.4-5.4 10 ^3/uL Monocytes # (Auto) 0.3 0-1.3 10 ^3/uL Eosinophils # (Auto) 0 0-0.8 10 ^3/uL Basophils # (Auto) 0 0-0.2 10 ^3/uL Nucleated Red Blood Cells 0.0 % Sodium Level 143 136-145 mmol/L Potassium Level 3.7 3.5-5.1 mmol/L Chloride Level 106 98-107 mmol/L Carbon Dioxide Level 22 20-31 mmol/L Anion Gap 15 5-15 Blood Urea Nitrogen 16 9-23 mg/dL Creatinine 0.83 0.550-1.02 mg/dL Glomerular Filtration Rate Calc 77 >90 mL/min BUN/Creatinine Ratio 19.3 10.0-20.0 Serum Glucose 116 H 74-106 mg/dL Calcium Level 9.1 8.7-10.4 mg/dL B-Type Natriuretic Peptide 35.93 0-100 pg/mL SEPSIS Sepsis Screen Date sepsis recognized/suspect: Jun 13, 2025 Time Sepsis recognized/suspect: 1250 Recent Procedure: No On Antibiotic Therapy: No Respiratory Rate >20: Yes Heart Rate >90: Yes Temp<36 C (96.8 F) or >38.3 C: No SBP <90 or MAP <65 mmHG: No New Acute Mental Status Change: No Is the patient on CPAP, BIPAP,: No Physician Orders Electrocardigram (06/13/25 12:13) Urinalysis (06/13/25 12:20) Med Neb Initial Treatment (06/13/25 12:20) Chest Portable (06/13/25 12:20) Heplock Iv (06/13/25 12:20) Pulse Oximetry (06/13/25 12:20) Assistant Chief Train Dispatcher (06/13/25 12:20) Blood Pressure (06/13/25 12:20) Rapid Influenza A&B (06/13/25 12:20) Covid19 Antigen Amaya (06/13/25 ) Troponin-I Hs (06/13/25 15:20) Admit (06/13/25 15:08) Oxygen By Nasal Cannula (06/13/25 15:08) Notify Of Changes From Base (06/13/25 15:08) Employee Relations Director For 24 Hours (06/13/25 15:08) D-Dimer (06/13/25 15:11) Levalbuterol Hcl (Xopenex Medneb) (06/13/25 18:00) Ipratropium Medneb (Atrovent Medneb) (06/13/25 18:00) Echo 2d Mode Cardiac Dop (06/13/25 15:14) Drug Screen (06/13/25 15:15) Thyroid Stimulating Hormone (06/13/25 15:15) Lactic Acid W/ Reflex Order (06/13/25 15:19) Blood Culture (06/13/25 15:19) Ct Angio Chest Contrast (06/13/25 15:19) Vital Signs Date Time Temp Pulse Resp B/P (MAP) Pulse Ox O2 Delivery O2 Flow Rate FiO2 06/13/25 14:58 76 06/13/25 14:00 98.1 112 26 119/58 (78) 96 98.1 06/13/25 13:07 83 06/13/25 12:58 14 97 Nasal Cannula* 2 28 06/13/25 12:50 106 24 98 Nasal Cannula* 2 28 06/13/25 12:50 98.1 106 24 94/45 (61) 98 98.1 06/13/25 12:27 76 06/13/25 12:03 98.1 83 18 147/81 93 98.1 Laboratory Tests Test 06/13/25 13:40 White Blood Count 11.6 10^3/uL (4.4-10.8) H Medications Medications Dose Ordered Sig/Paul Route Start Time Stop Time Status Last Admin Dose Admin Albuterol 20 mg ONCE ONCE HHN 06/13/25 12:30 06/13/25 12:31 DC 06/13/25 12:53 20 MG Ipratropium [place] 1 mg ONCE ONCE HHN 06/13/25 12:30 06/13/25 12:31 DC 06/13/25 12:53 1 MG Methylprednisolone Sodium Succinate 125 mg ONCE ONCE IV 06/13/25 12:30 06/13/25 12:31 DC 06/13/25 12:50 125 MG Assessment/Plan Assessment/Plan Assessment and plan: # Sepsis likely secondary to possible UTI - patient was given 1 L NS IV bolus - blood culture, urine bacterial culture and urinalysis are pending - IV ceftriaxone 1 g daily # Acute hypoxic respiratory failure # Possible pulmonary embolism - Chest x-ray showed Innumerable calcified nodules throughout the lungs compatible with calcified granulomas. - D-dimer is mildly elevated - Pending CT angio - Covid and flu are negative # Prediabetic, hemoglobin A1c 6.4 - counseled patient regarding weight loss, low carb diet lifestyle modification and physical exercise # PUD prophylaxis - Pepcid 20 mg p.o. daily # DVT prophylaxis - Lovenox 40 mg sc daily Goal of care discussed with the patient for more than 20 minutes full code Plan discussed with Dr. Leigh Plan discussed with: Patient, Other (RN) My Orders Orders - DERICK ARELLANO Procedure Category Date Status Time Admit ADMIT 06/13/25 Transmitted 15:08 Oxygen By Nasal RT 06/13/25 Transmitted Cannula 15:08 Notify Of Changes LIZ 06/13/25 In Process From Base 15:08 Employee Relations Director For LIZ 06/13/25 In Process 24 Hours 15:08 D-Dimer LAB 06/13/25 In Process 15:11 Levalbuterol Hcl PHA 06/13/25 Logged (Xopenex Medneb) 18:00 Ipratropium Medneb PHA 06/13/25 Logged (Atrovent Medneb) 18:00 Echo 2d Mode Cardiac US 06/13/25 Logged DOP 15:14 Drug Screen LAB 06/13/25 Logged 15:15 Thyroid Stimulating LAB 06/13/25 In Process Hormone 15:15 Lactic Acid W/ Reflex LAB 06/13/25 Verified Order 15:19 Blood Culture BONNIE 06/13/25 Uncollected 15:[address] 06/13/25 Verified Contrast 15:19 Date of Service: Jun 13, 2025 Billing Provider: RAJESH LEIGH MD Common Visit Codes: [id number] INP/OBS CARE (HIGH) Secondary Visit Codes: [id number] CARE PLAN 30 MINUTES SAMANTHA ARELLANORA RESIDENT Jun 13, 2025 15:21 RAJESH LEIGH MD Jun 14, 2025 16:57
[2025-06-13 15:37] LABS: COVID19 ANTIGEN SOFIA FIA NEGATIVE (NEGATIVE)
[2025-06-13] MEDS ORDERED: IOHEXOL 350 MG/ML 100ML IJ ONE (16:26)
[2025-06-13] MEDS: IPRATROPIUM BROM 0.5 MG/2.5ML INH SOL NEB SCH (17:17)
[2025-06-13] MEDS: LEVALBUTEROL HCL 1.25 MG/3 ML NEB NEB SCH (17:17)
--- NOTE | 2025-06-13 17:44 | DVHSR ---
APPROVED REPORT EXAM: Two-dimensional and M-mode echocardiogram with Doppler and color Doppler. Blood Pressure: 94/45 mmHg INDICATION SOB RISK FACTORS Height: 61, Weight: 192 DIMENSIONS LVDd3.9 (3.8-5.7cm)LA (2D)3.0 (1.9-4.0cm)Aortic Root3.3 (2.0-3.7cm) LVDs2.5 (2.5-4.0cm)LA (MM) (1.9-4.0cm)Aortic Cusp Exc2.1 (1.5-2.0cm) EF (%) 65.0 (55-70%)Rt. Atrium3.4 (1.9-4.0cm)Asc. Aorta cm Mitral Valve MitralMitral Stenosis E wave0.84m/sMV Mean GR.mmHg A wave1.23m/sMV Peak GR.mmHg E/A ratio0.72D MVAcm2 DECEL [id number] 1/2 [id number] IVRTmsDop MVA6.16cm2 Aortic Valve Aortic ValveAortic Stenosis V11.28m/Sunshine Mean GR.9mmHg V21.99m/Sunshine Peak GR.16mmHg LVOT Diameter2.1 (1.8-2.4cm)Doppler AVA2.23cm2 Pulmonic Valve V21.12m/s Other Information Technically limited study due to body habitus. Conclusion lvef 65% mild lvh normal rv function no severe valve abnormalities noted
--- NOTE | 2025-06-13 17:47 | DVH ---
CLINICAL HISTORY: To rule out PE chest pain TECHNIQUE: CT angiogram of the chest was performed with intravenous contrast. 100 ml of omnipaque 350 was administered intravenously. 3D MIP reconstructed images were created and archived on the PACS sy stem. This exam was performed according to our departmental dose optimization program. Up-to-date CT equipment and radiation dose reduction techniques are utilized as appropriate. 23.56 CTDI: 5.92 +23.56 DLP: 761.69 WID: COMPARISON: None FINDINGS: Lower Neck: Unremarkable Axilla, Mediastinum and [place]: Small hiatal hernia. No mediastinal lymphadenopathy. Heart and Great Vessels: Normal-sized heart without pericardial effusion. The thoracic aorta is peterson nt and normal caliber with mild mixed atherosclerotic plaque. No central or segmental pulmonary arter y filling defects are identified. There is motion artifact in the examination slightly limiting evalu ation of subsegmental pulmonary arteries although no definite subsegmental pulmonary artery filling d efect is identified. Airway, Lungs and Pleura: Trachea and central airways are patent, imaging during partial expiration. Scattered mild dependent and bibasilar atelectasis in the lungs. No consolidative pneumonia, pleural effusion, or pneumothorax. Chest Wall and Osseous Structures: Mild thoracic spondylosis. No destructive osseous lesion. Upper abdomen: There is hepatic steatosis. The liver is likely mildly enlarged. Prior cholecystectom y. Enio-en-Y gastric bypass surgery and partially imaged left abdominal small bowel anastomosis. IMPRESSION: 1. No evidence of pulmonary embolism although there is slight limited evaluation of more distal pulmo nary arteries due to respiratory motion. 2. Prior Enio-en-Y gastric bypass surgery. 3. Small hiatal hernia. 4. Mild hepatomegaly with mild hepatic steatosis.
[2025-06-13 18:01] LABS: Lactic Acid w/Reflex 4.8 mmol/L (0.4-2.0)
--- NOTE | 2025-06-13 18:34 | DVH ---
Bilateral lower extremity venous duplex Clinical History: To rule out DVT Comparison: None Technique: Duplex Doppler evaluation of the deep venous systems of both lower extremities from the common femora l veins to the popliteal veins including color Doppler and spectral/pulsed waveform analysis was perf ormed. Findings: RIGHT SIDE: The common femoral vein demonstrates appropriate compressibility and waveform variability. There is compressibility/patency of the great saphenous vein at the proximal thigh. The femoral vein demonstrates appropriate compressibility and waveform variability. The deep femoral vein demonstrates appropriate compressibility and waveform variability. The popliteal vein demonstrates appropriate compressibility and waveform variability. There is normal compressibility at the tibioperoneal trunk. LEFT SIDE: The common femoral vein demonstrates appropriate compressibility and waveform variability. There is compressibility/patency of the great saphenous vein at the proximal thigh. The femoral vein demonstrates appropriate compressibility and waveform variability. The deep femoral vein demonstrates appropriate compressibility and waveform variability. The popliteal vein demonstrates appropriate compressibility and waveform variability. There is normal compressibility at the tibioperoneal trunk. Impression: 1. No right or left femoropopliteal venous thrombosis.
[2025-06-13] MEDS ORDERED: CHOL20007 PO (18:56)
--- NOTE | 2025-06-13 20:54 | ECG ---
[facility] Test Date: 2025-06-13 Test Time: 12:10:08 Pat Name: DANNIELLE SINGH Department: ED Room: 0217T B Gender: F Security Threat Analyst: sanjiv : 1955 Requested By: PRICILLA KOLB Order Number: [id number] Reading MD: Onur Chan Measurements Intervals [place] Rate: 76 P: 49 CO: 125 QRS: 46 QRSD: 90 T: 64 QT: 399 QTc: 449 Interpretive Statements Sinus rhythm Electronically Signed On 06-19-2025 13:48:22 PDT by Onur Chan Please click the below link to view image of tracing.
[2025-06-13] MEDS: SODIUM CHLORIDE 0.9% 1,000 ML IV ONE ×2 (22:37→23:56)
[2025-06-13] MEDS: PIPERACILLIN-TAZOB 3.375GM 100 ML IV ONE (23:16)
[2025-06-13] MEDS: SODIUM CHLORIDE 0.9% 1,000 ML IV SCH (23:30)
[2025-06-13] MEDS ORDERED: DEXTROSE (50%) 50ML SYRG IV PRN (23:45)
[2025-06-14] VITALS (18 sets, daily range): BP systolic 107–155; BP diastolic 64–80; PULSE 78–93; RESP 16–18; TEMP 97.9–98.4; O2SAT 95–100
[2025-06-14] MEDS: MELATONIN 5 MG TAB PO ONE (00:15)
--- NOTE | 2025-06-14 04:51 | DVH ---
CHEST RADIOGRAPH Indication: sob Technique: Single frontal view of the chest was obtained Comparison: CT CT ANGIO CHEST CONTRAST on DOS: 06/13/25 FINDINGS: Lines and Tubes: None Lungs: Left lower lobe atelectasis. No focal consolidation. Pleura: No effusion. No pneumothorax. Cardiomediastinal contours: Unremarkable Bones: No acute osseous abnormality. IMPRESSION: 1. Left lower lobe atelectasis.
[2025-06-14] MEDS: PIPERACILLIN-TAZOB 3.375GM 100 ML IV SCH (05:54)
[2025-06-14 06:01] LABS: Hematocrit 31.7 % (36.0-46.0); Hemoglobin 10.2 g/dL (12.2-16.2); Mean Corpuscular Hemoglobin 26.4 pg (28.0-32.0); Mean Corpuscular Volume 82.2 fL (80.0-100.0); Nucleated Red Blood Cells % 0.0 %
[2025-06-14 06:21] LABS: Alanine Aminotransferase 22 U/L (7-40); Albumin 3.8 g/dL (3.2-4.8); Alkaline Phosphatase 102 U/L (46-116); Anion Gap 10 (5-15); BUN/Creatinine Ratio 12.8 (10.0-20.0); Bilirubin, Total 0.4 mg/dL (0.2-1.0); Blood Urea Nitrogen 10 mg/dL (9-23); Calcium 9.1 mg/dL (8.7-10.4); Carbon Dioxide 22 mmol/L (20-31); Chloride 110 mmol/L (98-107); Glucose 198 mg/dL (74-106); Potassium 3.9 mmol/L (3.5-5.1); Sodium 142 mmol/L (136-145); Total Protein 6.5 g/dL (5.7-8.2)
[2025-06-14 06:30] LABS: Lactic Acid w/Reflex 2.2 mmol/L (0.4-2.0)
[2025-06-14] MEDS: InsuLIN REG 1unit/0.01ml Soln (100units/ml) SC SCH (06:56)
[2025-06-14] MEDS: ACCU-CHEK COMFORT CURVE STRIP VI SCH (06:59)
[2025-06-14 08:47] LABS: Urine Protein, UAD Negative (Negative)
[2025-06-14 08:56] LABS: Opiate Scree,Urine Neg (NEGATIVE)
[2025-06-14 08:57] LABS: Amphetamine Screen, Urine Neg (NEGATIVE); Barbiturate Scree,Urine Neg (NEGATIVE); Benzodiazephine Screen, Urine Neg (NEGATIVE); Cannabinoid Screen, Urine Neg (NEGATIVE); Cocaine Screen, Urine Neg (NEGATIVE); Phencyclidine Screen, Urine Neg (NEGATIVE)
[2025-06-14] MEDS ORDERED: VANCOMYCIN 1GM/250ML KIT 250 ML IV SCH (10:00)
--- NOTE | 2025-06-14 10:26 | DVHINCON2 ---
Consultation - Surgical Date Seen: Jun 14, 2025 Referring Physician Referring Physician Attending Doctor: Shena Jimenez Resident Reason for Consultation low back pain History of Present Illness History of Present Illness History of Present Illness This is a 70-year-old female with past medical history of hypertension, bronchial asthma, type 2 diabetes mellitus, status post bilateral knee replacement and back surgery due to disc prolapse presented to the ED with a chief complaint of sudden onset of shortness of breath, chest tightness 1 hour ago before ED visit. According to the patient she went for physical therapy today and then [place] suddenly she felt chest t ightness, shortness of breath and cough that prompted this visit. The patient is also complaining of intermittent urinary and fecal incontinence with numbness in the bottom and following with Dr. Webster for these symptoms. She denies fever, chills, productive cough, recent traveling, any recent positive contact history, nausea, vomiting, abdominal pain, or any altered bowel habit. Past Medical/Surgical History Past Medical/Surgical History PCP: Juancho Rodney Cardiovascular: HTN Pulmonary: Asthma Endocrine: Diabetes Past Medical History Hypertension, type 2 diabetes mellitus, bronchial asthma Past Surgical History: Total knee replacement Past Surgical History Bilateral total knee replacement, spine surgery 3 months ago lumbar Family and Social History Family and Social History Family History Nothing contributory Past Social History Lives with boyfriend Nonsmoker, social drinker and never tried any drugs Allergies and medications Allergies: Coded Allergies: NO KNOWN ALLERGIES (Unverified , 02/07/17) Home Meds Active Scripts Hydrocodone-Acetaminophen (Hydrocodone Bitartrate/AC 5-325 mg) 1 Tab Tab, 1 TAB PO Q6HP PRN for 10 Days, #40 TAB Prov:ORLANDO LAWSON PAINT STRIPING MACHINE OPERATOR 03/08/25 Carisoprodol (Carisoprodol) 350 Mg Tab, 350 MG PO TID for 30 Days, #90 TAB Prov:RENNYORLANDO MANJARREZ PAINT STRIPING MACHINE OPERATOR 03/08/25 Docusate Sodium (Docusate Sodium) 100 Mg Cap, 100 MG PO BID for 14 Days, #28 CAP Prov:ORLANDO LAWSON PAINT STRIPING MACHINE OPERATOR 03/08/25 Reported Medications Cholecalciferol (VITAMIN D3) 2,000 Unit Tab, 1 PO DAILY, #30 TAB 5 Refills 06/13/25 Benzonatate (Benzonatate) 100 Mg Cap, 100 MG PO PRN, CAP 02/27/25 Discontinued Reported Medications Curcuma Longa (Turmeric) Extra (TURMERIC) 500 Mg Cap, 500 MG OR, CAP 02/27/25 Multiple Vitamin (Multi Vitamin) 1 Tab Tab, 1 TAB PO DAILY, TAB 02/27/25 Ascorbic Acid (VITAMIN C) 500 Mg Cap, 500 MG PO DAILY, CAP 02/27/25 Naproxen (NAPROSYN TABLET) 500 Mg Tb, 500 MG GT BID, TAB 02/27/25 Duloxetine Hcl (Cymbalta) 20 Mg Cap, 20 MG PO DAILY, CAP 02/27/25 Review of systems Review of Systems: NEURO:Abnormal (intermittent urinary and fecal incontinence with numbness in the bottom- reported at admission H/P) Examination Vital signs Vital Signs Date Time Temp Pulse Resp B/P (MAP) Pulse Ox O2 Delivery O2 Flow Rate FiO2 06/14/25 09:21 98.0 79 18 155/79 (104) 96 98.0 06/14/25 08:00 Nasal Cannula* 2 28 Medications Current Medications Medications (Trade) Dose Ordered Sig/Paul Route PRN Reason Start Time Stop Time Status Last Admin Levalbuterol HCl (Xopenex Medneb) 0.625 mg Q6HR NEB 06/13/25 18:00 06/14/25 06:25 Ipratropium [place] (Atrovent Medneb) 0.5 mg Q6HR NEB 06/13/25 18:00 06/14/25 06:25 Ceftriaxone Sodium 50 ml @ 100 mls/hr DAILY@09 IV 06/14/25 09:00 06/13/25 22:48 DC Sodium Chloride 1,000 ml @ 75 mls/hr [id number] IV 06/13/25 18:45 06/13/25 23:30 Piperacillin Sod/ Tazobactam Sod 100 ml @ 25 mls/hr Q8HR IV 06/14/25 06:00 06/14/25 05:54 Diagnostic Test (Pha) (Accu-Chek Comfort Curve T) 1 strip ACHS 06/14/25 07:00 06/14/25 06:59 Insulin Human Regular (InsuLIN R) ACHS SC 06/14/25 07:00 06/14/25 06:56 Dextrose 50 ml UD PRN IV Blood Sugar LESS THAN 60 06/13/25 23:45 Vancomycin HCl 250 ml @ 250 mls/hr Q8H IV 06/14/25 10:00 UNV Laboratory Labs Test 06/14/25 08:11 06/14/25 07:43 06/14/25 06:01 06/14/25 05:09 Range/Units Urine Color Light-yellow Yellow Urine Clarity Clear Clear Urine pH 5.5 5.0-9.0 Urine Specific [place] 1.019 1.001-1.035 Urine Protein Negative Negative Urine Ketones Negative Negative Urine Blood Negative Negative /uL Urine Nitrite Negative Negative Urine Bilirubin Negative Negative Urine Urobilinogen Normal Negative mg/dL Urine Leukocyte Esterase Negative Negative /uL Urine RBC 1 0 - 4 /hpf Urine Microscopic WBC 2 0-5 /HPF Urine Squamous Epithelial Cells Few <5 /hpf Urine Bacteria None seen None Seen /hpf Urine Glucose 1+ H Normal mg/dL Urine Opiates Screen Neg NEGATIVE Urine Fentanyl Screen Neg NEGATIVE Urine Barbiturates Screen Neg NEGATIVE Urine Phencyclidine Screen Neg NEGATIVE Urine Amphetamines Screen Neg NEGATIVE Urine Benzodiazepines Screen Neg NEGATIVE Urine Cocaine Screen Neg NEGATIVE Urine Cannabinoids Screen Neg NEGATIVE Lactic Acid Level 3.3 *H 0.4-2.0 mmol/L POC Glucose 211 H 70-106 mg/dl White Blood Count 15.1 #H 4.4-10.8 10^3/uL Red Blood Count 3.86 L 4.0-5.20 10^6/uL Hemoglobin 10.2 L 12.2-16.2 g/dL Hematocrit 31.7 #L 36.0-46.0 % Mean Corpuscular Volume 82.2 80.0-100.0 fL Mean Corpuscular Hemoglobin 26.4 L 28.0-32.0 pg Mean Corpuscular Hemoglobin Concent 32.1 32.0-36.0 g/dL Red Cell Distribution Width 16.9 H 11.8-14.3 % Platelet Count 166 140-450 10^3/uL Mean Platelet Volume 10.7 6.9-10.8 fL Neutrophils (%) (Auto) 96.4 H 37.0-80.0 % Lymphocytes (%) (Auto) 2.9 L 10.0-50.0 % Monocytes (%) (Auto) 0.7 0.0-12.0 % Eosinophils (%) (Auto) 0.0 0.0-7.0 % Basophils (%) (Auto) 0.0 0.0-2.0 % Neutrophils # (Auto) 14.5 H 1.6-8.6 10 ^3/uL Lymphocytes # (Auto) 0.4 0.4-5.4 10 ^3/uL Monocytes # (Auto) 0.1 0-1.3 10 ^3/uL Eosinophils # (Auto) 0 0-0.8 10 ^3/uL Basophils # (Auto) 0 0-0.2 10 ^3/uL Nucleated Red Blood Cells 0.0 % Sodium Level 142 136-145 mmol/L Potassium Level 3.9 3.5-5.1 mmol/L Chloride Level 110 H 98-107 mmol/L Carbon Dioxide Level 22 20-31 mmol/L Anion Gap 10 5-15 Blood Urea Nitrogen 10 9-23 mg/dL Creatinine 0.78 0.550-1.02 mg/dL Glomerular Filtration Rate Calc 83 >90 mL/min BUN/Creatinine Ratio 12.8 10.0-20.0 Serum Glucose 198 H 74-106 mg/dL Calcium Level 9.1 8.7-10.4 mg/dL Total Bilirubin 0.4 0.2-1.0 mg/dL Aspartate Amino Transferase (AST) 19 13-40 U/L Alanine Aminotransferase (ALT) 22 7-40 U/L Alkaline Phosphatase 102 46-116 U/L Total Protein 6.5 5.7-8.2 g/dL Albumin 3.8 3.2-4.8 g/dL Test 06/13/25 16:49 06/13/25 14:50 06/13/25 14:39 06/13/25 13:40 Range/Units D-Dimer, Quantitative 0.70 H 0.0-0.49 mg/L FEU Troponin I High Sensitivity 4 </=34 ng/L Influenza Type A Antigen Negative Negative Influenza Type B Antigen Negative Negative SARS-CoV-2 Antigen (Rapid) Negative NEGATIVE Vitamin D 25-Hydroxy 57.1 30.0-100 ng/mL Hemoglobin A1c 6.4 H <5.7 % A1C Magnesium Level 2.1 1.6-2.6 mg/dL B-Type Natriuretic Peptide 35.93 0-100 pg/mL Thyroid Stimulating Hormone (TSH) 1.07 0.55-4.78 uIU/mL Examination: GENERAL:Normal, HEENT:Normal, NECK:Normal, MSK:Normal (no weakness noted 5/5 all extremities), SKIN:Normal, NEURO:Normal (no complaints of back pain, only numbness is to her bilateral feet. Stated the numbness has improved since surgery ) Problem List/Assessment/Plan Problems: (1) UTI (urinary tract infection) (2) Muscle spasm of back Assessment and Plan Patient has no complaints of low back pain at the time of consult. she stated she has had some incontinence issues in the past, seen by her PCP and was supposed to order picker medication for it. Only bowel complaint is of diarrhea, no saddle numbness reposted. At this time the patient does not need an emergent spine surgery Continue supportive care per admitting team's discretion no barrier to discharge from a spine perspective Call with questions Arin Lawson [facility] Orthopaedic Spine Surgery nurse practitioner For Dr Gala Ge Office Patient was examined, chart reviewed, labs evaluated, and diagnostic studies and findings analyzed. Case was discussed with Dr. Stone Ge who formulated the plan of care. This medical document was created using an electronic medical record system with [employer] dictation system. Although this document has been carefully reviewed, there might still be some phonetic and typographical errors. These areas are purely typographical due to imperfections of the software programs, and do not reflect any compromise in the patient's medical care. Plan discussed with Plan discussed with: Patient, Other (Martina x [phone]) Visit Coding Surgery Date of Service if different f: Jun 14, 2025 Billing Provider: ORLANDO LAWSON NP Surgery Visit Codes: 72979 - INP CONSULT <40 MIN ORLANDO LAWSON NP Jun 14, 2025 10:25
[2025-06-14] MEDS ORDERED: VANCOMYCIN PER PHARMACY 0 MG IV SCH (11:15)
[2025-06-14 12:33] LABS: Hepatitis B Surface Antigen Negative (Negative); Hepatitis C Antibody Negative (Negative)
[2025-06-14] MEDS: VANCOMYCIN 1GM/250ML KIT 250 ML IV SCH (13:50)
--- NOTE | 2025-06-14 15:06 | DVHPN2 ---
Subjective Patient continues to have abdominal pain. Reviewed: Care Plan, H&P, Labs, Medications Changes from previous H/P or p: No Changes Eyes: No Pain, No Vision change, No Conjunctivae inflammation, No Eyelid inflammation, No Other, No Redness ENT: No Ear pain, No Ear discharge, No Nose pain, No Nose discharge, No Nose congestion, No Mouth pain, No Mouth swelling, No Throat pain, No Throat swelling, No Other Cardiovascular: No Palpitations, No Orthopnea, No Paroxysmal Noc. Dyspnea, No Edema, No Lt Headedness, No Other Respiratory: No Cough, No Dry, No SOB with excertion, No Wheezing, No Hemoptysis, No Pleuritic Pain, No Sputum, No Other Gastrointestinal: No Nausea, No Vomiting; Abdominal Pain; No Diarrhea, No Constipation, No Melena, No Hematochezia, No Other Genitourinary: No Dysuria, No Frequency, No Incontinence, No Hematuria, No Retention, No Other Musculoskeletal: No other, No neck pain, No shoulder pain, No arm pain, No back pain, No hand pain, No leg pain, No foot pain Skin: No Rash, No Lesions, No Jaundice, No Bruising, No Other Objective Vitals Vital Signs Date Time Temp Pulse Resp B/P (MAP) Pulse Ox O2 Delivery O2 Flow Rate FiO2 06/14/25 13:30 97.9 80 18 131/80 (97) 97 97.9 06/14/25 11:49 Nasal Cannula 2.0 06/14/25 11:49 28 Intake/Output Intake and Output 06/14/25 07:00 Intake Total 550 ml Balance 550 ml Intake Oral 550 ml # Voids 5 General Appearance: Alert, Oriented X3, Cooperative, mild distress HEENT: Atraumatic, PERRLA Lungs: Clear to auscultation, Normal air movement Cardiovascular: Normal S1, Normal S2 Abdomen: Normal bowel sounds, Soft, Other (Tenderness to left lower quadrant) Genitourinary: No Apparent Abnormalities Musculoskeletal: Normal sensory function, Normal motor function Extremities: No clubbing, No cyanosis, No edema, Normal pulses, No tenderness/swelling Skin: Dry, Intact Psych/Mental Status: Mental status NL, Mood NL Medications Current Medications Medications Dose Ordered Sig/Paul Route Start Time Stop Time Status Last Admin Dose Admin Levalbuterol HCl 0.625 mg Q6HR NEB 06/13/25 18:00 06/14/25 11:49 0.625 MG Ipratropium [place] 0.5 mg Q6HR NEB 06/13/25 18:00 06/14/25 11:49 0.5 MG Sodium Chloride 1,000 ml @ 75 mls/hr [id number] IV 06/13/25 18:45 06/13/25 23:30 75 MLS/HR Piperacillin Sod/ Tazobactam Sod 100 ml @ 25 mls/hr Q8HR IV 06/14/25 06:00 06/14/25 05:54 25 MLS/HR Diagnostic Test (Pha) 1 strip ACHS 06/14/25 07:00 06/14/25 11:32 1 STRIP Insulin Human Regular ACHS SC 06/14/25 07:00 06/14/25 11:32 2 UNITS Dextrose 50 ml UD PRN IV 06/13/25 23:45 Vancomycin HCl 250 ml @ 250 mls/hr Q8H IV 06/14/25 10:00 UNV Vancomycin HCl 0 ml @ 0 mls/hr UD IV 06/14/25 11:15 Metronidazole 100 ml @ 100 mls/hr Q8HR IV 06/14/25 22:00 UNV Levofloxacin/ Dextrose 100 ml @ 100 mls/hr DAILY IV 06/15/25 10:00 UNV Laboratory Results Laboratory Tests 06/14/25 05:09 Chemistry Test 06/14/25 05:09 Albumin 3.8 g/dL (3.2-4.8) Calcium Level 9.1 mg/dL (8.7-10.4) Total Protein 6.5 g/dL (5.7-8.2) Coagulation Test 06/13/25 16:49 D-Dimer, Quantitative 0.70 mg/L FEU (0.0-0.49) H LFT Test 06/14/25 05:09 Alanine Aminotransferase (ALT) 22 U/L (7-40) Alkaline Phosphatase 102 U/L (46-116) Aspartate Amino Transferase (AST) 19 U/L (13-40) Total Bilirubin 0.4 mg/dL (0.2-1.0) Urinalysis Test 06/14/25 08:11 Urine Color Light-yellow (Yellow) Urine Clarity Clear (Clear) Urine pH 5.5 (5.0-9.0) Urine Specific [place] 1.019 (1.001-1.035) Urine Protein Negative (Negative) Urine Ketones Negative (Negative) Urine Blood Negative /uL (Negative) Urine Nitrite Negative (Negative) Urine Bilirubin Negative (Negative) Urine Urobilinogen Normal mg/dL (Negative) Urine Leukocyte Esterase Negative /uL (Negative) Urine RBC 1 /hpf (0 - 4) Urine Microscopic WBC 2 /HPF (0-5) Urine Squamous Epithelial Cells Few /hpf (<5) Urine Bacteria None seen /hpf (None Seen) Urine Glucose 1+ mg/dL (Normal) H Labs and/or images reviewed: Labs reviewed by me, Image(s) reviewed by me Assessment/Plan Assessment/Plan Impression: -sepsis -rule out colitis -PE ruled out -diabetes mellitus -obesity -status post lumbar spinal surgery Plan: -CT of the abdomen and pelvis -change IV antibiotics to Levaquin and Flagyl -stool sample -regular insulin sliding scale -PUD prophylaxis -repeat labs in a.m. Total time spent with patient discussing and formulating plan of care: 35 minutes. This medical document was created using an electronic medical record system with [employer] dictation system. Although this document has been carefully reviewed, there may still be some phonetic and typographical errors. These areas are purely typographical due to imperfections of the software programs, and do not reflect any compromise in the patient's medical care. Plan discussed with: Patient, Other (RN) My Orders Orders - ARLEN DE LA FUENTE NP Procedure Category Date Status Time Metronidazole PHA 06/14/25 Logged 500mg/100ml (Flagyl 22:00 Levofloxacin 500mg PHA 06/15/25 Logged (Levaquin 500mg/ 100m 10:00 Clostridium Difficile BONNIE 06/14/25 Uncollected Toxin 14:52 Stool Bacterial BONNIE 06/14/25 Uncollected Culture 14:52 Ct Ab Pel Wo Con-No CT 06/14/25 Logged Oral Or Iv 15:00 Date of Service: Jun 14, 2025 Billing Provider: ARLEN DE LA FUENTE NP Common Visit Codes: [id number] INP/OBS CARE(HIGH) ARLEN DE LA FUENTE NP Jun 14, 2025 15:06
[2025-06-14] MEDS: SODIUM CHLORIDE 0.9% 1,000 ML IV ONE (15:34)
--- NOTE | 2025-06-14 16:16 | DVH ---
CLINICAL HISTORY: LLQ pain, sepsis TECHNIQUE: CT of the abdomen and pelvis was performed without IV contrast. This exam was performed ac cording to our departmental dose optimization program. Up-to-date CT equipment and radiation dose red uction techniques are utilized as appropriate. CTDI 27 DLP 1398 COMPARISON: None FINDINGS: Abdomen/Pelvis: The spleen, pancreas, adrenal glands, kidneys, and liver are grossly unremarkable. There is contrast material within the bladder from CTA chest performed yesterday. The left ovary is enlarged, measuring 5 cm. The gallbladder is absent. The abdominal aorta is normal in course and caliber. There are mild atherosclerotic calcifications. There is no free intraperitoneal air or fluid. There is no enlarged abdominal pelvic lymph node. There is no bowel wall thickening or dilatation. There has been Enio-en-Y gastric bypass surgery. The re is mild colonic diverticulosis. Other: The imaged lower thorax demonstrates minimal atelectatic changes at both lung bases. No acute osseous abnormality is evident. There has been posterior L3-L5 fusion surgery. Impression: No acute noncontrast CT abnormality in the abdomen or pelvis. Enlarged 5 cm left ovary, raising possibility of underlying cysts. If better evaluation is warranted, ultrasound correlation is recommended. Mild colonic diverticulosis. Cholecystectomy. Enio-en-Y gastric bypass surgery.
--- NOTE | 2025-06-14 20:51 | DVHPNRES ---
Progress Note Date Seen: Jun 14, 2025 Resident Creating Document: SASCHA ZARAGOZA RESIDENT Medical Necessity Reason Pt with a Central, PICC or Fol: No Subjective Review of Systems Ronda Dolan is a 70-year-old female, with past medical history of hypertension, bronchial asthma, type 2 diabetes mellitus, status post bilateral knee replacement and back surgery due to disc prolapse (02/2025). The patient came to the ED via EMS with a chief complaint of sudden onset of chest tightness on the right side of the chest 03/02, that was irradiated to the neck associated with dyspnea. The patient arrived to the ED one hour after the onset of the symptoms. The patient reports is first time of the episode. The patient is also complaining of intermittent urinary and fecal incontinence she has been following with Dr. Webster for these symptoms. The patient denies fever, chills, productive cough, recent traveling, sick contacts, nausea, vomiting, abdominal pain or other symptoms. In the ED: BP: 119/58 mmHg, HR: 96, WBC11.6 H, Hb: 11.7mg/dl. D-Dimer 0.70 On medical history review, her past Surgical History: Total knee replacement, Bilateral total knee replacement, spine surgery, Family History Nothing contributory, past Social History. Lives with boyfriend Nonsmoker, social drinker, no drug usage. Today, the patient was evaluated and examined at bedside, VSL 131/79mmHg, HR: 86bpm, O2Sat 99% with O2 2L via NC. The following antibiotics were stopped. The patient continues with levofloxacin and Metronidazole IV antibiotics. ECHO report is pending. Sputum cultures were ordered. We will continue following the progress of this patient. ROS: Constitutional: No: Fever, Chills, Sweats, Weakness, Malaise, Other Eyes: No: Pain, Vision change, Conjunctivae inflammation, Eyelid inflammation, Other, Redness ENT: No: Ear pain, Ear discharge, Nose pain, Nose discharge, Nose congestion, Mouth pain, Mouth swelling, Throat pain, Throat swelling, Other Respiratory: mild Shortness of breath; No: Cough, Dry, SOB with excertion, Wheezing, Hemoptysis, Pleuritic Pain, Sputum, Wheezing, Other Cardiovascular: Chest Pain; No: Palpitations, Orthopnea, Paroxysmal Noc. Dyspnea, Edema, Lt Headedness, Other Gastrointestinal: No: Nausea, Vomiting, Abdominal Pain, Diarrhea, Constipation, Melena, Hematochezia, Other Genitourinary: No Dysuria, No Frequency, No Incontinence, No Hematuria, No Retention, No Other Musculoskeletal: No: other, neck pain, shoulder pain, arm pain, back pain, hand pain, leg pain, foot pain Skin: No: Rash, Lesions, Jaundice, Bruising, Other Neurological: No: Weakness, Numbness, Incoordination, Change in speech, Confusion, Seizures, Other Allergies: NO KNOWN ALLERGIES (Unverified , 02/07/17) Objective vital signs Vital Sign Date Time Temp Pulse Resp B/P (MAP) Pulse Ox O2 Delivery O2 Flow Rate FiO2 06/14/25 19:18 89 16 100 06/14/25 19:12 Room Air* 0 21 06/14/25 16:55 97.9 132/78 (96) 97.9 Total Intake and Output 06/13/25 06/13/25 06/14/25 15:00 23:00 07:00 Intake Total 550 ml Balance 550 ml medications Current Medications Medications Dose Ordered Sig/Paul Route Start Time Stop Time Status Last Admin Dose Admin Levalbuterol HCl 0.625 mg Q6HR NEB 06/13/25 18:00 06/14/25 19:12 0.625 MG Ipratropium [place] 0.5 mg Q6HR NEB 06/13/25 18:00 06/14/25 19:12 0.5 MG Sodium Chloride 1,000 ml @ 75 mls/hr [id number] IV 06/13/25 18:45 06/13/25 23:30 75 MLS/HR Diagnostic Test (Pha) 1 strip ACHS 06/14/25 07:00 06/14/25 16:24 1 STRIP Insulin Human Regular ACHS SC 06/14/25 07:00 06/14/25 11:32 2 UNITS Dextrose 50 ml UD PRN IV 06/13/25 23:45 Vancomycin HCl 250 ml @ 250 mls/hr Q8H IV 06/14/25 10:00 UNV Metronidazole 100 ml @ 100 mls/hr Q8HR IV 06/14/25 22:00 Levofloxacin/ Dextrose 100 ml @ 100 mls/hr DAILY IV 06/15/25 10:00 Examination General Appearance: patient in mild distress, alert, oriented X3, Cooperative., with O2 via NC at 2L HEENT: Atraumatic, PERRLA, EOMI, Mucous membrane moist/pink Respiratory: Normal lung sounds, normal lung expansion. Cardiovascular: Regular rate, Normal S1, Normal S2, No murmurs, no chest wall tenderness Abdominal: Normal bowel sounds, Soft, No tenderness, No hepatospenomegaly, No masses Extremities: No leg edema. No clubbing, No cyanosis, No edema, Normal pulses, No tenderness/swelling Skin: No rashes, No breakdown, No significant lesion Neuro: Grossly intact cranial nerves Cranial nerves 3-12 NL, Reflexes 2+ Psych/Mental Status: Normal mood. Examination: GENERAL:Normal laboratory and microbiology Laboratory Tests 06/14/25 05:09 Test 06/14/25 05:09 Range/Units Serum Glucose 198 H 74-106 mg/dL Problem List/Assessment/Plan Problem List/Assessment/Plan # Sepsis likely secondary to possible UTI - patient was given 1 L NS IV bolus - blood culture, urine bacterial culture and urinalysis are pending - Stopped: IV ceftriaxone 1 g daily -Stopped: Vancomycin 1 gr was started. -Metronidazole IV -Levofloxacin IV # Acute hypoxic respiratory failure # Possible pulmonary embolism - Chest x-ray showed Innumerable calcified nodules throughout the lungs compatible with calcified granulomas. - D-dimer is mildly elevated - Pending CT angio - Covid and flu are negative # Prediabetic, hemoglobin A1c 6.4 - counseled patient regarding weight loss, low carb diet lifestyle modification and physical exercise # PUD prophylaxis - Pepcid 20 mg p.o. daily # DVT prophylaxis - Lovenox 40 mg sc daily #Asthma, not in exacerbation. Breathing treatment #DM type 2 with hyperglycemia Mild insulin sliding scale #Essential hypertension Med reconciliation. Diet: Low carbohydrate and cardiac diet DVT prophylaxis Goals of care discussed with the patient > 35 min. Discussed plan of care with Dr. Leigh Code status: Full code PCP: Dr. Dawkins Plan discussed with: Patient, the patient agrees with the plan. Plan discussed with: Patient, Other (Partner) My Orders My Orders Orders - SASCHA ZARAGOZA Procedure Category Date Status Time Stool Occult Blood LAB 06/14/25 Logged 08:11 Complete Blood Count LAB 06/15/25 Verified 04:00 Basic Metabolic Panel LAB 06/15/25 Verified 04:00 Date of Service: Jun 14, 2025 Billing Provider: RAJESH LEIGH MD Common Visit Codes: [id number] INP/OBS CARE(HIGH) SASCHA ZARAGOZA RESIDENT Jun 14, 2025 20:51 RAJESH LEIGH MD Jun 15, 2025 08:41
[2025-06-14] MEDS ORDERED: MELATONIN 5 MG TAB PO ONE (22:00)
[2025-06-15] VITALS (19 sets, daily range): BP systolic 126–139; BP diastolic 66–84; PULSE 64–94; RESP 16–18; TEMP 97.9–98.9; O2SAT 96–100
[2025-06-15 07:59] LABS: Hemoglobin 9.8 g/dL (12.2-16.2); Nucleated Red Blood Cells % 0.0 %
[2025-06-15 08:01] LABS: Hematocrit 30.5 % (36.0-46.0); Mean Corpuscular Hemoglobin 26.3 pg (28.0-32.0); Mean Corpuscular Volume 81.7 fL (80.0-100.0); Potassium 4.0 mmol/L (3.5-5.1)
[2025-06-15 08:02] LABS: Anion Gap 9 (5-15); Carbon Dioxide 23 mmol/L (20-31)
[2025-06-15 08:07] LABS: BUN/Creatinine Ratio 13.2 (10.0-20.0); Blood Urea Nitrogen 12 mg/dL (9-23); Glucose 104 mg/dL (74-106)
[2025-06-15 08:09] LABS: Calcium 8.1 mg/dL (8.7-10.4); Chloride 114 mmol/L (98-107); Sodium 146 mmol/L (136-145)
[2025-06-16] VITALS (16 sets, daily range): BP systolic 122–151; BP diastolic 74–89; PULSE 65–91; RESP 15–20; TEMP 97.6–98.4; O2SAT 95–100
--- NOTE | 2025-06-16 15:23 | DVHPN2 ---
Subjective Patient continues to have abdominal pain. Reviewed: Care Plan, H&P, Labs, Medications Changes from previous H/P or p: No Changes Eyes: No Pain, No Vision change, No Conjunctivae inflammation, No Eyelid inflammation, No Other, No Redness ENT: No Ear pain, No Ear discharge, No Nose pain, No Nose discharge, No Nose congestion, No Mouth pain, No Mouth swelling, No Throat pain, No Throat swelling, No Other Cardiovascular: Chest Pain; No Palpitations, No Orthopnea, No Paroxysmal Noc. Dyspnea, No Edema, No Lt Headedness, No Other Respiratory: No Cough, No Dry; Shortness of breath; No SOB with excertion, No Wheezing, No Hemoptysis, No Pleuritic Pain, No Sputum, No Other Gastrointestinal: No Nausea, No Vomiting, No Abdominal Pain, No Diarrhea, No Constipation, No Melena, No Hematochezia, No Other Genitourinary: No Dysuria, No Frequency, No Incontinence, No Hematuria, No Retention, No Other Musculoskeletal: No other, No neck pain, No shoulder pain, No arm pain, No back pain, No hand pain, No leg pain, No foot pain Skin: No Rash, No Lesions, No Jaundice, No Bruising, No Other Objective Vitals Vital Signs Date Time Temp Pulse Resp B/P (MAP) Pulse Ox O2 Delivery O2 Flow Rate FiO2 06/16/25 13:00 97.6 68 16 131/77 (95) 100 97.6 06/16/25 11:48 Nasal Cannula* 2 28 Intake/Output Intake and Output 06/16/25 07:00 Intake Total 1350 ml Balance 1350 ml Intake Oral 1150 ml IV Total 200 ml # Voids 6 # Bowel Movements 3 General Appearance: Alert, Oriented X3, Cooperative, mild distress HEENT: Atraumatic, PERRLA Lungs: Clear to auscultation, Normal air movement Cardiovascular: Normal S1, Normal S2 Abdomen: Normal bowel sounds, Soft, Other (Tenderness to left lower quadrant) Genitourinary: No Apparent Abnormalities Musculoskeletal: Normal sensory function, Normal motor function Extremities: No clubbing, No cyanosis, No edema, Normal pulses, No tenderness/swelling Skin: Dry, Intact Psych/Mental Status: Mental status NL, Mood NL Medications Current Medications Medications Dose Ordered Sig/Paul Route Start Time Stop Time Status Last Admin Dose Admin Levalbuterol HCl 0.625 mg Q6HR NEB 06/13/25 18:00 06/16/25 11:48 0.625 MG Ipratropium [place] 0.5 mg Q6HR NEB 06/13/25 18:00 06/16/25 11:47 0.5 MG Sodium Chloride 1,000 ml @ 75 mls/hr [id number] IV 06/13/25 18:45 06/16/25 00:05 75 MLS/HR Diagnostic Test (Pha) 1 strip ACHS 06/14/25 07:00 06/16/25 11:24 1 STRIP Insulin Human Regular ACHS SC 06/14/25 07:00 06/15/25 17:02 2 UNITS Dextrose 50 ml UD PRN IV 06/13/25 23:45 Vancomycin HCl 250 ml @ 250 mls/hr Q8H IV 06/14/25 10:00 UNV Metronidazole 100 ml @ 100 mls/hr Q8HR IV 06/14/25 22:00 06/16/25 13:55 100 MLS/HR Levofloxacin/ Dextrose 100 ml @ 100 mls/hr DAILY IV 06/15/25 10:00 06/16/25 09:43 100 MLS/HR Laboratory Results Laboratory Tests 06/15/25 06:42 Urinalysis Test 06/14/25 08:11 Urine Color Light-yellow (Yellow) Urine Clarity Clear (Clear) Urine pH 5.5 (5.0-9.0) Urine Specific [place] 1.019 (1.001-1.035) Urine Protein Negative (Negative) Urine Ketones Negative (Negative) Urine Blood Negative /uL (Negative) Urine Nitrite Negative (Negative) Urine Bilirubin Negative (Negative) Urine Urobilinogen Normal mg/dL (Negative) Urine Leukocyte Esterase Negative /uL (Negative) Urine RBC 1 /hpf (0 - 4) Urine Microscopic WBC 2 /HPF (0-5) Urine Squamous Epithelial Cells Few /hpf (<5) Urine Bacteria None seen /hpf (None Seen) Urine Glucose 1+ mg/dL (Normal) H Microbiology Microbiology Date/Time Source Procedure Growth Status 06/15/25 06:03 Stool Clostridium difficile Toxin Assay - Final Complete 06/14/25 11:25 Sputum Gram Stain - Final Resulted 06/14/25 11:25 Sputum Respiratory Culture - Preliminary Resulted 06/14/25 09:13 Blood Blood Culture - Preliminary NO GROWTH AFTER 48 HOURS OF INCUBATION. Resulted 06/14/25 08:11 Voided Urine Urine Culture - Final Complete Labs and/or images reviewed: Labs reviewed by me, Image(s) reviewed by me Assessment/Plan Assessment/Plan Impression: -sepsis -rule out colitis -PE ruled out -diabetes mellitus -obesity -status post lumbar spinal surgery Plan: Events: Pain improved to LLQ. Repeat labs today. -change IV antibiotics to Levaquin and Flagyl -stool sample -regular insulin sliding scale -PUD prophylaxis -Reassess for discharge in AM Total time spent with patient discussing and formulating plan of care: 35 minutes. This medical document was created using an electronic medical record system with [employer] dictation system. Although this document has been carefully reviewed, there may still be some phonetic and typographical errors. These areas are purely typographical due to imperfections of the software programs, and do not reflect any compromise in the patient's medical care. Plan discussed with: Patient, Other (RN) My Orders Orders - ARLEN DE LA FUENTE NP Procedure Category Date Status Time Complete Blood Count LAB 06/16/25 Logged 15:07 Comprehensive LAB 06/16/25 Logged Metabolic Panel 15:07 Date of Service: Jun 16, 2025 Billing Provider: ARLEN DE LA FUENTE NP Common Visit Codes: [id number] INP/OBS CARE(HIGH) ARLEN DE LA FUENTE NP Jun 16, 2025 15:23
[2025-06-16 16:49] LABS: Hematocrit 33.2 % (36.0-46.0); Hemoglobin 10.6 g/dL (12.2-16.2); Mean Corpuscular Hemoglobin 26.3 pg (28.0-32.0); Mean Corpuscular Volume 82.2 fL (80.0-100.0); Nucleated Red Blood Cells % 0.0 %
[2025-06-16 17:15] LABS: Alanine Aminotransferase 35 U/L (7-40); Albumin 3.6 g/dL (3.2-4.8); Alkaline Phosphatase 94 U/L (46-116); Anion Gap 8 (5-15); BUN/Creatinine Ratio 17.6 (10.0-20.0); Blood Urea Nitrogen 15 mg/dL (9-23); Carbon Dioxide 27 mmol/L (20-31); Potassium 4.1 mmol/L (3.5-5.1); Sodium 143 mmol/L (136-145); Total Protein 6.0 g/dL (5.7-8.2)
[2025-06-16 17:19] LABS: Bilirubin, Total 0.2 mg/dL (0.2-1.0); Calcium 8.6 mg/dL (8.7-10.4); Chloride 108 mmol/L (98-107); Glucose 123 mg/dL (74-106)
[2025-06-17] VITALS (10 sets, daily range): BP systolic 127–165; BP diastolic 74–93; PULSE 61–78; RESP 18–20; TEMP 97.8–99.2; O2SAT 94–100
[2025-06-17] MEDS ORDERED: LEVO500T91 PO (08:52)
--- NOTE | 2025-06-17 09:01 | DVHDS2 ---
Discharge Summary Date of Admission Jun 13, 2025 at 15:08 Date of Discharge: Jun 17, 2025 Admitting Diagnosis Sepsis likely secondary to UTI Labs/Diagnostic Data: Laboratory Results Test 06/17/25 05:17 06/16/25 16:26 06/14/25 16:39 06/14/25 08:11 POC Glucose 103 mg/dl (70-106) White Blood Count 6.9 10^3/uL (4.4-10.8) Red Blood Count 4.04 10^6/uL (4.0-5.20) Hemoglobin 10.6 g/dL (12.2-16.2) Hematocrit 33.2 % (36.0-46.0) Mean Corpuscular Volume 82.2 fL (80.0-100.0) Mean Corpuscular Hemoglobin 26.3 pg (28.0-32.0) Mean Corpuscular Hemoglobin Concent 32.0 g/dL (32.0-36.0) Red Cell Distribution Width 17.3 % (11.8-14.3) Platelet Count 167 10^3/uL (140-450) Mean Platelet Volume 10.3 fL (6.9-10.8) Neutrophils (%) (Auto) 68.9 % (37.0-80.0) Lymphocytes (%) (Auto) 21.8 % (10.0-50.0) Monocytes (%) (Auto) 6.5 % (0.0-12.0) Eosinophils (%) (Auto) 2.5 % (0.0-7.0) Basophils (%) (Auto) 0.3 % (0.0-2.0) Neutrophils # (Auto) 4.7 10 ^3/uL (1.6-8.6) Lymphocytes # (Auto) 1.5 10 ^3/uL (0.4-5.4) Monocytes # (Auto) 0.4 10 ^3/uL (0-1.3) Eosinophils # (Auto) 0.2 10 ^3/uL (0-0.8) Basophils # (Auto) 0 10 ^3/uL (0-0.2) Nucleated Red Blood Cells 0.0 % Sodium Level 143 mmol/L (136-145) Potassium Level 4.1 mmol/L (3.5-5.1) Chloride Level 108 mmol/L (98-107) Carbon Dioxide Level 27 mmol/L (20-31) Anion Gap 8 (5-15) Blood Urea Nitrogen 15 mg/dL (9-23) Creatinine 0.85 mg/dL (0.550-1.02) Glomerular Filtration Rate Calc 75 mL/min (>90) BUN/Creatinine Ratio 17.6 (10.0-20.0) Serum Glucose 123 mg/dL (74-106) Calcium Level 8.6 mg/dL (8.7-10.4) Total Bilirubin 0.2 mg/dL (0.2-1.0) Aspartate Amino Transferase (AST) 27 U/L (13-40) Alanine Aminotransferase (ALT) 35 U/L (7-40) Alkaline Phosphatase 94 U/L (46-116) Total Protein 6.0 g/dL (5.7-8.2) Albumin 3.6 g/dL (3.2-4.8) Lactic Acid Level 1.8 mmol/L (0.4-2.0) Urine Color Light-yellow (Yellow) Urine Clarity Clear (Clear) Urine pH 5.5 (5.0-9.0) Urine Specific [place] 1.019 (1.001-1.035) Urine Protein Negative (Negative) Urine Ketones Negative (Negative) Urine Blood Negative /uL (Negative) Urine Nitrite Negative (Negative) Urine Bilirubin Negative (Negative) Urine Urobilinogen Normal mg/dL (Negative) Urine Leukocyte Esterase Negative /uL (Negative) Urine RBC 1 /hpf (0 - 4) Urine Microscopic WBC 2 /HPF (0-5) Urine Squamous Epithelial Cells Few /hpf (<5) Urine Bacteria None seen /hpf (None Seen) Urine Glucose 1+ mg/dL (Normal) Urine Opiates Screen Neg (NEGATIVE) Urine Fentanyl Screen Neg (NEGATIVE) Urine Barbiturates Screen Neg (NEGATIVE) Urine Phencyclidine Screen Neg (NEGATIVE) Urine Amphetamines Screen Neg (NEGATIVE) Urine Benzodiazepines Screen Neg (NEGATIVE) Urine Cocaine Screen Neg (NEGATIVE) Urine Cannabinoids Screen Neg (NEGATIVE) Test 06/14/25 07:43 06/14/25 06:03 06/13/25 16:49 06/13/25 14:50 Anti-Nuclear Antibody Screen Negative (Negative) Stool Occult Blood Neg x1 (Negative) Stool Occult Blood Sample #3 (Negative) D-Dimer, Quantitative 0.70 mg/L FEU (0.0-0.49) Troponin I High Sensitivity 4 ng/L (</=34) Hepatitis B Surface Antigen Negative (Negative) Hepatitis C Antibody Negative (Negative) Influenza Type A Antigen Negative (Negative) Influenza Type B Antigen Negative (Negative) SARS-CoV-2 Antigen (Rapid) Negative (NEGATIVE) Test 06/13/25 14:39 06/13/25 13:40 Vitamin D 25-Hydroxy 57.1 ng/mL (30.0-100) Hemoglobin A1c 6.4 % A1C (<5.7) Magnesium Level 2.1 mg/dL (1.6-2.6) B-Type Natriuretic Peptide 35.93 pg/mL (0-100) Thyroid Stimulating Hormone (TSH) 1.07 uIU/mL (0.55-4.78) Other Laboratory Tests 06/16/25 16:26 Brief Hx & Hospital Course: History of Present Illness This is a 70-year-old female with past medical history of hypertension, bronchial asthma, type 2 diabetes mellitus, status post bilateral knee replacement and back surgery due to disc prolapse presented to the ED with a chief complaint of sudden onset of shortness of breath, chest tightness 1 hour ago before ED visit. According to the patient she went for physical therapy today and then [place] she felt chest tightness, shortness of breath and cough that prompted this visit. The patient is also complaining of intermittent urinary and fecal incontinence with numbness in the bottom and following with Dr. Webster for these symptoms. She denies fever, chills, productive cough, recent traveling, any recent positive contact history, nausea, vomiting, abdominal pain, or any altered bowel habit. Course of hospitalization: Re-evaluation of the patient reveals that her symptoms include nausea and vomiting, diarrhea, with noted tenderness to left lower quadrant. Antibiotics were deescalated to IV Levaquin and Flagyl. Patient's white blood cell count improved. Pain has almost resolved to her left lower quadrant. She is able to tolerate oral intake without any noted nausea or vomiting. Patient is noted to have recent lumbar spinal surgery for which spinal surgery was consulted. No recommendations from there specialty noted. Patient will be discharged home and continued on all of her home medications as well as continuation of antibiotic therapy in the form of Levaquin 500 mg p.o. daily for the next five days. She is agreeable with discharge plan. All questions answered. Physical examination General: Alert and Oriented x3. No acute distress. Well-nourished. Obese Eyes: EOMI. Anicteric. HENT: Moist mucous membranes. Lungs: Clear to auscultation bilaterally. No accessory muscle use. Cardiovascular: Regular rate and rhythm. No murmur. No JVD. Abdomen: Soft, non-tender and non-distended. No palpable masses. Mild left lower quadrant tenderness with deep palpation Extremities: No edema. Non-tender. Skin: No rashes or lesions. Warm. Neurologic: No focal neurological deficits. CN II-XII grossly intact, but not individually tested. Psychiatric: Cooperative. Appropriate mood and affect. Total time spent with patient discussing and formulating plan of care: 35 minutes. This medical document was created using an electronic medical record system with [employer] system. Although this document has been carefully reviewed, there may still be some phonetic and typographical errors. These areas are purely typographical due to imperfections of the software programs, and do not reflect any compromise in the patient's medical care. Condition at Discharge: Fair Final Diagnosis/Problems List Colitis -sepsis -rule out colitis -PE ruled out -diabetes mellitus -obesity -status post lumbar spinal surgery Discharge Disposition: Home Discharge Instruct/Medications Diet: Consistent carbohydrate, Cardiac 2g Na,low cholest Activity: No Restrictions, As Tolerated Follow Up/Referral: Follow up with PCP in 1-2 weeks Medications: Levaquin 500 mg p.o. daily x5 days Continue all previous home medications Scheduled Benzonatate (Benzonatate), 100 MG PO PRN, (Reported) Carisoprodol (Carisoprodol), 350 MG PO TID Cholecalciferol (Vitamin D3), 1 PO DAILY, (Reported) Docusate Sodium (Docusate Sodium), 100 MG PO BID Levofloxacin Hemihydrate (Levaquin 500 Mg), 1 TAB PO DAILY Scheduled PRN Hydrocodone-Acetaminophen (Hydrocodone Bitartrate/AC 5-325 mg), 1 TAB PO Q6HP PRN Discontinued Medications Ascorbic Acid (Vitamin C), 500 MG PO DAILY, (Reported) Curcuma Longa (Turmeric) Extra (Turmeric), 500 MG OR, (Reported) Duloxetine Hcl (Cymbalta), 20 MG PO DAILY, (Reported) Multiple Vitamin (Multi Vitamin), 1 TAB PO DAILY, (Reported) Naproxen (Naprosyn Tablet), 500 MG GT BID, (Reported) 36 Discharge Statement: "Patient was advised to return to the ER or call 911 if any headaches, dizziness, shortness of breath, chest pain, abdominal pain, bleeding, fevers, or worsening of medical condition. Patient was counseled about treatment plan, medications, possible side effects, patientverbalized understanding. All questions were answered to the best of my ability. This discharge took greater then 30 minutes in planning, reviewing documentation, counseling the patient, and discussing with other team members." ASSESSMENT ASSESSMENT Assessment Colitis Date of Service: Jun 17, 2025 Billing Provider: ARLEN DE LA FUENTE NP Common Visit Codes: 38843-VFM/OBS DISCH DAY >30min ARLEN DE LA FUENTE NP Jun 17, 2025 09:01
== END 2025-06-17 13:10 | disposition home or self-care (01) | DRG 871 ==
LOC: ER 12:04 → OVERFLOW 15:08 → TELE-CENTR 18:38
PROVIDERS: ADMIT Internal Medicine; ATTEND Nurse Practitioner Acute Care
DX: A41.9 Sepsis, unspecified organism (principal); J96.01 Acute respiratory failure with hypoxia; N39.0 Urinary tract infection, site not specified; J44.1 Chronic obstructive pulmonary disease with (acute) exacerbation; A04.9 Bacterial intestinal infection, unspecified; E66.9 Obesity, unspecified; E11.9 Type 2 diabetes mellitus without complications; M62.830 Muscle spasm of back; Z20.822 Contact with and (suspected) exposure to COVID-19; I10 Essential (primary) hypertension; Z96.653 Presence of artificial knee joint, bilateral; M54.50 Low back pain, unspecified; Z68.36 Body mass index [BMI] 36.0-36.9, adult; Z79.4 Long term (current) use of insulin
CPT/HCPCS: 36415; 71045; 71275; 74176; 80048; 80053; 80307; 81001; 82270; 82306; 82962; 83036; 83605; 83735; 83880; 84443; 84484; 85025; 85379; 86038; 86803; 87040; 87045; 87070; 87086; 87205; 87340; 87426; 87493; 87804; 93005; 93306; 93970; 94640; 94644; 96374; 99291; G0378; J1815; J1956; J2543; J3490